=== PATIENT | female | born 1960 | race Caucasian/White ===

== ENCOUNTER 2016-09-14 13:08 | Emergency (ER) | payer MEDICARE, OTHER ==
[~2016-09-14] VITALS: Ht 162.6 cm; Wt 55.0 kg
[~2016-09-14 13:08] MED LIST: ALBUAER3 INH; IBUP-232 PO; LISI-515 PO; MONT10TA2 PO; PROP20TA3 PO; ZYRT10TA PO
--- NOTE | 2016-09-14 13:18 | PD ---
Physical Exam Time Seen by Provider: 13:16 Narrative 56yo F c/o right sided abdominal pain with radiation to back x 3days. Says she has bilateral kidney stones. Patient seen in triage. Awaiting bed placement. VS reviewed. MDM Supervised Visit with NELL: Meena Corona September 14, 2016 13:18
[2016-09-14 13:36] VITALS: BP 127/84; PULSE 75; RESP 18; O2SAT 97
[2016-09-14] MEDS ORDERED: ONDANSETRON HCL 4 MG/2 ML VIAL IV ONE (14:15)
--- NOTE | 2016-09-14 14:19 | PD ---
HPI Chief Complaint: Complaint Time Seen by Provider: 13:30 Travel History International Travel<30 days: No Contact w/Intl Traveler<30days: No Traveled to known affect area: No History of Present Illness HPI The patient was seen and examined in the presence of the nurse. This patient complains of right upper quadrant pain. She's had this pain on and off for 2 full years. He's had evaluation by GI physician and primary care physician. She has an outpatient ultrasound of the right upper quadrant scheduled for tomorrow. This current flare is lasted 3 days. Severity of symptoms is moderate. She has some nausea but no repetitive vomiting. No diarrhea or fever. No lower quadrant pains. She has had a cholecystectomy. No alleviating factors. She is not an alcohol drinker. She has history of hep C causing cirrhosis and usually has elevated liver function tests PFSH Past Medical History Asthma: Yes Blood Disorders: No Anxiety: Yes Depression: No Heart Rhythm Problems: No Cancer: Yes (CERVICAL) Cardiovascular Problems: Yes (HTN) High Cholesterol: No Chemotherapy: Yes (2002) Chest Pain: No Congestive Heart Failure: Yes COPD: Yes Cerebrovascular Accident: Yes Coronary Artery Disease: No Diabetes: No Diminished Hearing: No Endocrine: Yes Gastrointestinal Disorders: Yes (Ibs, colitis) GERD: Yes Genitourinary: No Hepatitis: Yes (HEPATITIS C) Hiatal Hernia: No Hypertension: Yes Immune Disorder: Yes (HEP C FROM BLOOD TRANSFUSION ) Implanted Vascular Access Dvce: No Kidney Stones: Yes Musculoskeletal: Yes (back) Neurologic: Yes (seizures, encephalopathy) Psychiatric: Yes Reproductive: No Respiratory: Yes (COPD CHF) Immunizations Current: Yes Migraines: Yes Radiation Therapy: No Renal Failure: No Seizures: Yes Sleep Apnea: No Thyroid Disease: Yes (HYPER (GRAVES)) Ulcer: No Menopausal: Yes : 8 Para: 5 Miscarriage: 3 Past Surgical History Abdominal Surgery: Yes (choly) Arteriovenous Shunt: No Body Medical Devices: steel plate in neck, hernia mesh Cardiac Surgery: No Section: Yes (2) Cholecystectomy: Yes Ear Surgery: No Endocrine Surgery: No Eye Surgery: No Genitourinary Surgery: No Gynecologic Surgery: Yes (COMPLETE HYSTERECTOMY) Hysterectomy: Yes Insulin Pump: No Joint Replacement: No Neurologic Surgery: No Oral Surgery: No Pacemaker: No Thoracic Surgery: No Other Surgery: Yes (PLATE PLACED IN NECK WITH CERVIAL FUSION) Social History Alcohol Use: No Tobacco Use: Yes (1-2 cigs a day) Substance Use: No Allergies-Medications (Allergen,Severity, Reaction): Coded Allergies: Cipro (Verified Allergy, Severe, HIVES, THROAT SWELLING AND DIARRHEA, 09/12) Contrast Media (Verified Allergy, Severe, 09/12/16) Iodine (Verified Allergy, Severe, HIVES, THROAT SWELLING, 09/12/16) Penicillin (Verified Allergy, Severe, HIVES, THROAT SWELLING, 09/12/16) Toradol (Verified Allergy, Severe, HIVES AND THROAT SWELLING, 09/12/16) Estrogens (Verified Allergy, Intermediate, hives, 09/12/16) Reported Meds & Prescriptions Reported Meds & Active Scripts Active Proair Hfa 8.5 GM Inh (Albuterol Sulfate) 90 Mcg/Act Aer 2 Puff INH Q4-6H PRN 108 mcg/actuation Lisinopril 20 Mg Tab 20 Mg PO DAILY Ibuprofen 600 Mg Tab 600 Mg PO Q8HR PRN Reported Zyrtec Allergy (Cetirizine HCl) 10 Mg Tab 10 Mg PO DAILY Singulair (Montelukast Sodium) 10 Mg Tab 10 Mg PO HS Propranolol (Propranolol HCl) 20 Mg Tab 20 Mg PO DAILY Review of Systems General / Constitutional: No: Fever Eyes: No: Visual changes HENT: No: Headaches Cardiovascular: No: Chest Pain or Discomfort Respiratory: No: Shortness of Breath Gastrointestinal: Positive: Nausea, Abdominal Pain Genitourinary: No: Dysuria Musculoskeletal: No: Pain Skin: No Rash Neurologic: No: Weakness Psychiatric: No: Depression Endocrine: No: Polydipsia Hematologic/Lymphatic: No: Easy Bruising Physical Exam Narrative GENERAL: Well-nourished, well-developed patient in no apparent distress. SKIN: Focused skin assessment reveals no rash and nodules. Skin is Warm and dry. HEAD: Atraumatic. Normocephalic. EYES: Pupils equal and round. No scleral icterus. No injection or drainage. ENT: No nasal bleeding or discharge. Mucous membranes pink and moist. NECK: Trachea midline. No JVD. CARDIOVASCULAR: Regular rate and rhythm. No murmur appreciated. RESPIRATORY: No accessory muscle use. Clear to auscultation. Breath sounds equal bilaterally. GASTROINTESTINAL: Abdomen soft, mild right upper quadrant tenderness without rebound or guarding, nondistended. Hepatic and splenic margins not palpable. MUSCULOSKELETAL: No obvious deformities. No clubbing. No cyanosis. No edema. NEUROLOGICAL: Awake and alert. No obvious cranial nerve deficits. Motor grossly within normal limits. Normal speech. PSYCHIATRIC: Appropriate mood and affect; insight and judgment normal. Data Data Last Documented VS Vital Signs Date Time Temp Pulse Resp B/P Pulse Ox O2 Delivery O2 Flow Rate FiO2 09/14/16 14:35 20 09/14/16 13:36 75 127/84 97 Room Air Orders Iv Access Insert/Monitor (09/14/16 14:01) Complete Blood Count With Diff (09/14/16 14:01) Comprehensive Metabolic Panel (09/14/16 14:01) Lipase (09/14/16 14:01) Ondansetron Inj (Zofran Inj) (09/14/16 14:15) Morphine Inj (Morphine Inj) (09/14/16 14:30) Labs Laboratory Tests Test 09/14/16 14:20 White Blood Count 4.2 TH/MM3 Red Blood Count 3.93 MIL/MM3 Hemoglobin 13.2 GM/DL Hematocrit 38.2 % Mean Corpuscular Volume 97.0 FL Mean Corpuscular Hemoglobin 33.6 PG Mean Corpuscular Hemoglobin 34.7 % Concent Red Cell Distribution Width 13.8 % Platelet Count 72 TH/MM3 Mean Platelet Volume 10.1 FL Neutrophils (%) (Auto) 53.8 % Lymphocytes (%) (Auto) 32.3 % Monocytes (%) (Auto) 9.2 % Eosinophils (%) (Auto) 3.7 % Basophils (%) (Auto) 1.0 % Neutrophils # (Auto) 2.3 TH/MM3 Lymphocytes # (Auto) 1.4 TH/MM3 Monocytes # (Auto) 0.4 TH/MM3 Eosinophils # (Auto) 0.2 TH/MM3 Basophils # (Auto) 0.0 TH/MM3 CBC Comment AUTO DIFF Differential Comment AUTO DIFF CONFIRMED Platelet Estimate LOW Platelet Morphology Comment NORMAL Sodium Level 147 MEQ/L Potassium Level 3.7 MEQ/L Chloride Level 113 MEQ/L Carbon Dioxide Level 26.7 MEQ/L Anion Gap 7 MEQ/L Blood Urea Nitrogen 9 MG/DL Creatinine 0.52 MG/DL Estimat Glomerular Filtration 121 ML/MIN Rate Random Glucose 81 MG/DL Calcium Level 8.4 MG/DL Total Bilirubin 1.9 MG/DL Aspartate Amino Transf 46 U/L (AST/SGOT) Alanine Aminotransferase 29 U/L (ALT/SGPT) Alkaline Phosphatase 104 U/L Total Protein 6.7 GM/DL Albumin 3.4 GM/DL Lipase 121 U/L MDM Medical Decision Making Medical Screen Exam Complete: Yes Emergency Medical Condition: Yes Medical Record Reviewed: Yes Differential Diagnosis Hepatitis, pancreatitis, peptic ulcer disease Narrative Course I have reviewed the patient's electronic medical record. Reviewed her prior lab studies from March 2016 IV placed I gave her IV Zofran CBC shows thrombocytopenia but improved from prior Metabolic profile normal LFTs shows elevated bili 1.9 but same as prior Lipase is normal Nothing emergent here on workup today. She looks clinically well. She has some laboratory abnormalities consistent with cirrhosis Diagnosis Primary Impression: Chronic right upper quadrant pain Additional Impression: Hepatic cirrhosis due to chronic hepatitis C infection Additional Instructions: The patient was advised to follow up with their physician and return if they worsen. Med/Other Pt SpecificInfo: Other Disposition: 01 DISCHARGE HOME Condition: Stable Tay Paulino MD September 14, 2016 14:19
[2016-09-14] MEDS ORDERED: MORPHINE SULFATE 4 MG/ML INJ IV PUSH ONE (14:30)
[2016-09-14 14:35] VITALS: RESP 20
[2016-09-14 14:39] LABS: AUTOMATED NEUTROPHIL # 2.3 TH/MM3 (1.8-7.7); EOSINOPHIL # 0.2 TH/MM3 (0-0.4); EOSINOPHIL % 3.7 % (0.0-4.0); HEMATOCRIT 38.2 % (35.0-46.0); LYMPH % 32.3 % (9.0-44.0); LYMPHOCYTE # 1.4 TH/MM3 (1.0-4.8); MEAN CORPUSCULAR HEMOGLOBIN 33.6 PG (27.0-34.0); MEAN CORPUSCULAR HGB CONC 34.7 % (32.0-36.0); MONO % 9.2 % (0.0-8.0); NEUT % 53.8 % (16.0-70.0); PLATELET COUNT 72 TH/MM3 (150-450); RED BLOOD COUNT 3.93 MIL/MM3 (4.00-5.30); RED CELL DISTRIBUTION WIDTH 13.8 % (11.6-17.2); WHITE BLOOD COUNT 4.2 TH/MM3 (4.0-11.0)
[2016-09-14 14:56] LABS: ALT (GPT) 29 U/L (10-53); ANION GAP 7 MEQ/L (5-15); AST (GOT) 46 U/L (15-37); BICARBONATE 26.7 MEQ/L (21.0-32.0); BLOOD UREA NITROGEN 9 MG/DL (7-18); CHLORIDE 113 MEQ/L (98-107); GLOMERULAR FILTRATION RATE 121 ML/MIN (>89); SODIUM (NA) 147 MEQ/L (136-145)
[2016-09-14 14:57] LABS: POTASSIUM 3.7 MEQ/L (3.5-5.1)
[2016-09-14 14:58] LABS: ALKALINE PHOSPHATASE 104 U/L (45-117); TOTAL BILIRUBIN ADULT 1.9 MG/DL (0.2-1.0)
[2016-09-14 14:59] LABS: HEMO FLAGS AUTO DIFF
[2016-09-14 15:28] LABS: PLATELET ESTIMATE SMEAR LOW (NORMAL); PLATELET MORPHOLOGY NORMAL (NORMAL); SCAN/DIFF AUTO DIFF CONFIRMED
[2016-09-29] MEDS ORDERED: LISI-515 PO (10:27)
[2016-10-04] MEDS ORDERED: XIFA550T4 PO (12:29)
[2016-10-04] MEDS ORDERED: CREO3000 PO (12:29)
[2016-10-04] MEDS ORDERED: CETI10 PO (12:29)
== END 2016-09-14 16:53 | disposition home or self-care (01) ==
LOC: NEPC 13:08
DX: R10.11 Right upper quadrant pain (principal); B18.2 Chronic viral hepatitis C; K74.60 Unspecified cirrhosis of liver; J45.909 Unspecified asthma, uncomplicated; I10 Essential (primary) hypertension; I50.9 Heart failure, unspecified; J44.9 Chronic obstructive pulmonary disease, unspecified; F17.210 Nicotine dependence, cigarettes, uncomplicated; Z86.73 Personal history of transient ischemic attack (TIA), and cerebral infarction without residual deficits; Z87.442 Personal history of urinary calculi
CPT/HCPCS: 80053; 83690; 85025; 96374; 96375; 99284; J2270; J2405

== ENCOUNTER → 2016-10-03 | Outpatient (CLI) | payer MEDICARE, OTHER ==
[~2016-10-03] MED LIST changes: +CETI10 PO; +CREO3000 PO; +XIFA550T4 PO
[2016-10-03 09:41] LABS: AUTOMATED NEUTROPHIL # 2.3 TH/MM3 (1.8-7.7); BASOPHIL % 0.7 % (0.0-2.0); EOSINOPHIL # 0.1 TH/MM3 (0-0.4); EOSINOPHIL % 3.4 % (0.0-4.0); HEMATOCRIT 38.3 % (35.0-46.0); LYMPH % 29.5 % (9.0-44.0); LYMPHOCYTE # 1.1 TH/MM3 (1.0-4.8); MEAN CELL VOLUME 95.5 FL (80.0-100.0); MEAN CORPUSCULAR HGB CONC 35.6 % (32.0-36.0); MONO % 4.9 % (0.0-8.0); NEUT % 61.5 % (16.0-70.0); PLATELET COUNT 64 TH/MM3 (150-450); RED BLOOD COUNT 4.01 MIL/MM3 (4.00-5.30); RED CELL DISTRIBUTION WIDTH 13.6 % (11.6-17.2); WHITE BLOOD COUNT 3.7 TH/MM3 (4.0-11.0)
[2016-10-03 09:48] LABS: INTERNATIONAL NORMALIZED RATIO 1.1 RATIO; PROTHROMBIN TIME - PATIENT 12.5 SEC (9.8-11.6)
[2016-10-03 09:50] LABS: HEMO FLAGS AUTO DIFF
[2016-10-03 10:33] LABS: PLATELET ESTIMATE SMEAR LOW (NORMAL); PLATELET MORPHOLOGY NORMAL (NORMAL); SCAN/DIFF AUTO DIFF CONFIRMED
== END ==
LOC: CLAB 08:57
PROVIDERS: ATTEND Physician Assistant Medical
DX: K74.60 Unspecified cirrhosis of liver (principal)
CPT/HCPCS: 36415; 85025; 85610

== ENCOUNTER → 2016-10-04 | Outpatient (CLI) | payer MEDICARE, OTHER ==
[~2016-10-04] VITALS: Ht 162.6 cm; Wt 59.3 kg
[~2016-10-04] MED LIST changes: +CHLORHEXIDINE GLUCONATE 2 % 1 PACK (2 CLOTHS) TOPICAL PRN; +INSULIN HUMAN REGULAR 1,000 UNITS/10 ML VIAL SQ PRN; +LACTATED RINGER'S 1000 ML IV PRN; +METOPROLOL TARTRATE 25 MG TAB PO PRN; +PROPOFOL 200 MG/20 ML AMP IV ONE; +SODIUM CHLORID 0.9% 500 ML IV PRN
[2016-10-04 12:18] VITALS: BP 113/76; PULSE 68; RESP 20; TEMP 98.8; O2SAT 97
[2016-10-04 14:21] VITALS: BP 122/74; PULSE 71; RESP 18; O2SAT 98
== END ==
LOC: HEND 11:43
DX: R13.10 Dysphagia, unspecified (principal); K74.60 Unspecified cirrhosis of liver; K76.6 Portal hypertension; K31.89 Other diseases of stomach and duodenum; K59.8 Other specified functional intestinal disorders; J39.2 Other diseases of pharynx; K22.2 Esophageal obstruction
CPT/HCPCS: 00740; 43248; C1769

== ENCOUNTER 2016-11-04 12:49 | Emergency (ER) | payer MEDICARE, OTHER ==
[~2016-11-04] VITALS: Ht 162.6 cm; Wt 65.0 kg
[~2016-11-04 12:49] MED LIST changes: -CHLORHEXIDINE GLUCONATE 2 % 1 PACK (2 CLOTHS) TOPICAL PRN; -INSULIN HUMAN REGULAR 1,000 UNITS/10 ML VIAL SQ PRN; -LACTATED RINGER'S 1000 ML IV PRN; -METOPROLOL TARTRATE 25 MG TAB PO PRN; -PROPOFOL 200 MG/20 ML AMP IV ONE; -SODIUM CHLORID 0.9% 500 ML IV PRN; -ZYRT10TA PO
[2016-11-04 12:51] VITALS: BP 179/89; PULSE 86; RESP 28; TEMP 97.9; O2SAT 98
[2016-11-04 13:01] VITALS: BP 155/88; PULSE 62; RESP 24; O2SAT 95
[2016-11-04] MEDS ORDERED: SODIUM CHLORIDE 0.9% FLUSH 10 ML FLUSH IVF PRN (13:30)
[2016-11-04] MEDS ORDERED: methylPREDNISolone SOD SUCC 125 MG/2 ML VIAL IVP ONE (13:30)
--- NOTE | 2016-11-04 13:32 | PD ---
HPI Chief Complaint: Respiratory Symptoms Time Seen by Provider: 13:32 Travel History International Travel<30 days: No Contact w/Intl Traveler<30days: No Traveled to known affect area: No History of Present Illness HPI 56-year-old female with history of COPD, CHF, hypertension, migraine, seizures, presents to emergency department for evaluation of worsening shortness of breath of the last week. Patient denies any cough or chest congestion. No chest pain. Patient states she has been unable to get into her primary care provider's office. She is also here for evaluation of bilateral mandibular second molar pain, stating that the teeth have broken and are painful. Denies any fever or chills. Has an appointment scheduled with [facility] in 2 days. PFSH Past Medical History Asthma: Yes Blood Disorders: No Anxiety: Yes Depression: No Heart Rhythm Problems: No Cancer: Yes (2002) Cardiovascular Problems: Yes High Cholesterol: No Chemotherapy: Yes (2002) Chest Pain: No Congestive Heart Failure: Yes COPD: Yes Cerebrovascular Accident: Yes Coronary Artery Disease: No Diabetes: No Diminished Hearing: No Endocrine: Yes Gastrointestinal Disorders: Yes (Ibs, colitis) GERD: Yes Genitourinary: No Hepatitis: Yes (HEPATITIS C) Hiatal Hernia: No Hypertension: Yes Immune Disorder: Yes (HEP C FROM BLOOD TRANSFUSION 1974 ) Implanted Vascular Access Dvce: No Kidney Stones: Yes Musculoskeletal: Yes (back) Neurologic: Yes (seizures, encephalopathy) Psychiatric: Yes Reproductive: No Respiratory: Yes Immunizations Current: Yes Migraines: Yes Radiation Therapy: No Renal Failure: No Seizures: Yes Sleep Apnea: No Thyroid Disease: Yes (HYPER (GRAVES)) Ulcer: No Tetanus Vaccination: < 5 Years ?: Not Menopausal: Yes : 8 Para: 5 Miscarriage: 3 Past Surgical History Abdominal Surgery: Yes Arteriovenous Shunt: No Body Medical Devices: steel plate in neck, hernia mesh Cardiac Surgery: No Section: Yes (2) Cholecystectomy: Yes Ear Surgery: No Endocrine Surgery: No Eye Surgery: No Genitourinary Surgery: No Gynecologic Surgery: Yes Hysterectomy: Yes Insulin Pump: No Joint Replacement: No Neurologic Surgery: No Oral Surgery: No Pacemaker: No Thoracic Surgery: No Other Surgery: Yes (PLATE PLACED IN NECK WITH CERVIAL FUSION) Social History Alcohol Use: No Tobacco Use: Yes (1-2 cigs a day) Substance Use: No Allergies-Medications (Allergen,Severity, Reaction): Coded Allergies: Cipro (Verified Allergy, Severe, HIVES, THROAT SWELLING AND DIARRHEA, ) Contrast Media (Verified Allergy, Severe, 11/04/16) Iodine (Verified Allergy, Severe, HIVES, THROAT SWELLING, 11/04/16) Penicillin (Verified Allergy, Severe, HIVES, THROAT SWELLING, 11/04/16) Toradol (Verified Allergy, Severe, HIVES AND THROAT SWELLING, 11/04/16) Estrogens (Verified Allergy, Intermediate, hives, 11/04/16) Reported Meds & Prescriptions Reported Meds & Active Scripts Active Prednisone 50 Mg Tab 50 Mg PO DAILY 5 Days Duoneb (Ipratropium-Albuterol Neb) 0.5-2.5 Mg/3 Ml Neb 1 Nebule INH Q6HR NEB Lisinopril 20 Mg Tab 20 Mg PO DAILY Proair Hfa 8.5 GM Inh (Albuterol Sulfate) 90 Mcg/Act Aer 2 Puff INH Q4-6H PRN 108 mcg/actuation Reported Creon (Pancrelipase) 3,000-9,500-15,000 Units Cap 1 Cap PO TIDPC Xifaxan (Rifaximin) 550 Mg Tab 550 Mg PO Q8HR Cetirizine (Cetirizine HCl) 10 Mg Tab 10 Mg PO DAILY Singulair (Montelukast Sodium) 10 Mg Tab 10 Mg PO HS Propranolol (Propranolol HCl) 20 Mg Tab 20 Mg PO DAILY Review of Systems Except as stated in HPI: all other systems reviewed are Neg Physical Exam Narrative GENERAL: Well-nourished female patient, in no acute distress SKIN: Focused skin assessment warm/dry. HEAD: Atraumatic. Normocephalic. EYES: Pupils equal and round. No scleral icterus. No injection or drainage. ENT: No nasal bleeding or discharge. Mucous membranes pink and moist. DENTAL: Patient has multiple rollover fillings within the teeth, missing molars. Teeth are cracked and broken. No malocclusion. NECK: Trachea midline. No JVD. CARDIOVASCULAR: Regular rate and rhythm. No murmur appreciated. RESPIRATORY: No accessory muscle use. Diminished auscultation. Breath sounds equal bilaterally. GASTROINTESTINAL: Abdomen soft, non-tender, nondistended. Hepatic and splenic margins not palpable. MUSCULOSKELETAL: No obvious deformities. No clubbing. No cyanosis. No edema. NEUROLOGICAL: Awake and alert. No obvious cranial nerve deficits. Motor grossly within normal limits. Normal speech. PSYCHIATRIC: Appropriate mood and affect; insight and judgment normal. Data Data Last Documented VS Vital Signs Date Time Temp Pulse Resp B/P Pulse Ox O2 Delivery O2 Flow Rate FiO2 11/04/16 16:00 95 Room Air 11/04/16 14:13 2 11/04/16 13:01 62 24 155/88 11/04/16 12:51 97.9 Orders Chest, Pa & Lat (11/04/16 ) Complete Blood Count With Diff (11/04/16 13:27) Basic Metabolic Panel (Bmp) (11/04/16 13:27) B-Type Natriuretic Peptide (11/04/16 13:27) Act Partial Throm Time (Ptt) (11/04/16 13:27) Prothrombin Time / Inr (Pt) (11/04/16 13:27) Ckmb (Isoenzyme) Profile (11/04/16 13:27) Troponin I (11/04/16 13:27) Urinalysis - C+S If Indicated (11/04/16 13:27) Iv Access Insert/Monitor (11/04/16 13:27) Electrocardiogram (11/04/16 13:27) Ecg Monitoring (11/04/16 13:27) Oximetry (11/04/16 13:27) Oxygen Administration (11/04/16 13:27) Sodium Chloride 0.9% Flush (Ns Flush) (11/04/16 13:30) Methylprednisolone So Succ Inj (Solumedr (11/04/16 13:30) Albuterol Neb (Albuterol Neb) (11/04/16 13:30) CKMB (11/04/16 12:40) CKMB% (11/04/16 12:40) Ibuprofen (Motrin) (11/04/16 15:30) Labs Laboratory Tests Test 11/04/16 11/04/16 12:40 15:10 White Blood Count 4.7 TH/MM3 Red Blood Count 3.84 MIL/MM3 Hemoglobin 12.6 GM/DL Hematocrit 36.6 % Mean Corpuscular Volume 95.4 FL Mean Corpuscular Hemoglobin 32.9 PG Mean Corpuscular Hemoglobin 34.5 % Concent Red Cell Distribution Width 13.6 % Platelet Count 74 TH/MM3 Mean Platelet Volume 9.9 FL Neutrophils (%) (Auto) 55.1 % Lymphocytes (%) (Auto) 33.3 % Monocytes (%) (Auto) 7.8 % Eosinophils (%) (Auto) 3.3 % Basophils (%) (Auto) 0.5 % Neutrophils # (Auto) 2.6 TH/MM3 Lymphocytes # (Auto) 1.5 TH/MM3 Monocytes # (Auto) 0.4 TH/MM3 Eosinophils # (Auto) 0.2 TH/MM3 Basophils # (Auto) 0.0 TH/MM3 CBC Comment AUTO DIFF Differential Comment AUTO DIFF CONFIRMED Prothrombin Time 11.6 SEC Prothromb Time International 1.0 RATIO Ratio Activated Partial 24.5 SEC Thromboplast Time Sodium Level 146 MEQ/L Potassium Level 3.7 MEQ/L Chloride Level 114 MEQ/L Carbon Dioxide Level 26.8 MEQ/L Anion Gap 5 MEQ/L Blood Urea Nitrogen 12 MG/DL Creatinine 0.57 MG/DL Estimat Glomerular Filtration 109 ML/MIN Rate Random Glucose 98 MG/DL Calcium Level 8.5 MG/DL Total Creatine Kinase 138 U/L Creatine Kinase MB 1.3 NG/ML Troponin I LESS THAN 0.02 NG/ML B-Type Natriuretic Peptide 25 PG/ML Urine Color YELLOW Urine Turbidity HAZY Urine pH 6.5 Urine Specific [place] 1.026 Urine Protein TRACE mg/dL Urine Glucose (UA) NEG mg/dL Urine Ketones NEG mg/dL Urine Occult Blood NEG Urine Nitrite NEG Urine Bilirubin NEG Urine Urobilinogen 4.0 MG/DL Urine Leukocyte Esterase NEG Urine RBC 8 /hpf Urine WBC 3 /hpf Urine Squamous Epithelial 1 /hpf Cells Urine Amorphous Sediment FEW Urine Mucus FEW /lpf Microscopic Urinalysis Comment CULT NOT INDICATED MDM Medical Decision Making Medical Screen Exam Complete: Yes Emergency Medical Condition: Yes Medical Record Reviewed: Yes Differential Diagnosis COPD exacerbation versus CHF versus pneumonia versus anxiety versus neoplasm Narrative Course 56-year-old female presents to emergency department for evaluation. Patient appears without distress. She does have diminished breath sounds and is originally tachypneic on exam. IV Solu-Medrol and DuoNeb treatments are ordered. Upon reassessment, patient is resting in the bed with her eyes closed. Her oxygen saturation has improved and she is no longer tacypneic. Chest x-rays with no acute disease. CBC and BMP are without acute concern. BNP is 25. Patiently discharged home on short course of oral steroids as well as DuoNeb treatments. She is encouraged to follow-up with her primary care provider. She agrees to return immediately with any acute worsening of symptoms. Diagnosis Primary Impression: COPD (chronic obstructive pulmonary disease) Qualified Code: J44.1 - Chronic obstructive pulmonary disease with acute exacerbation Additional Impression: Pain due to dental caries Referrals: Primary Care Physician Patient Instructions: COPD (Chronic Obstructive Pulmonary Disease) (ED), General Instructions Additional Instructions: Follow up with your primary care provider Steroids will increase your blood sugar Tylenol or ibuprofen as directed on the package as needed for pain Keep your appointment with [facility] Return immediately with acute worsening of symptoms Med/Other Pt SpecificInfo: Prescription(s) given Scripts Prednisone 50 Mg Tab50 Mg PO DAILY 5 Days Ref 0 Prov:Sarah Joya 11/04/16 Ipratropium-Albuterol Neb (Duoneb)0.5-2.5 Mg/3 Ml Neb1 Nebule INH Q6HR NEB #60 NEBULE Ref 0 Prov:Sarah Joya 11/04/16 Disposition: 01 DISCHARGE HOME Condition: Stable Sarah Joya Nov 04, 2016 13:32
[2016-11-04] MEDS: RESP: ALBUTEROL 2.5 MG/3 ML NEB (SCH) INH ×2 (13:38→13:39)
--- NOTE | 2016-11-04 13:51 | RADRPT ---
EXAM DATE/TIME: 11/04/2016 13:32 [facility] COMPARISON: CHEST PA & LAT, October 26, 2015, 17:58. INDICATIONS : Chest pain and shortness of breath. MEDICAL HISTORY : Congestive heart failure. Chronic obstructive pulmonary disease. SURGICAL HISTORY : None. ENCOUNTER: Initial ACUITY: 1 day PAIN SCORE: 9/10 LOCATION: Bilateral chest FINDINGS: PA and lateral views of the chest demonstrate the lungs to be hyperaerated without evidence of mass, infiltrate or effusion. The cardiomediastinal contours are unremarkable. Osseous structures are int act. CONCLUSION: No acute disease. Serafin Chilel MD on November 04, 2016 at 13:49 Board Certified Radiologist. This report was verified electronically.
[2016-11-04 14:13] VITALS: O2SAT 96
[2016-11-04 14:33] LABS: AUTOMATED NEUTROPHIL # 2.6 TH/MM3 (1.8-7.7); BASOPHIL % 0.5 % (0.0-2.0); EOSINOPHIL # 0.2 TH/MM3 (0-0.4); EOSINOPHIL % 3.3 % (0.0-4.0); HEMATOCRIT 36.6 % (35.0-46.0); LYMPH % 33.3 % (9.0-44.0); LYMPHOCYTE # 1.5 TH/MM3 (1.0-4.8); MEAN CELL VOLUME 95.4 FL (80.0-100.0); MEAN CORPUSCULAR HEMOGLOBIN 32.9 PG (27.0-34.0); MEAN CORPUSCULAR HGB CONC 34.5 % (32.0-36.0); MONO % 7.8 % (0.0-8.0); NEUT % 55.1 % (16.0-70.0); PLATELET COUNT 74 TH/MM3 (150-450); RED BLOOD COUNT 3.84 MIL/MM3 (4.00-5.30); RED CELL DISTRIBUTION WIDTH 13.6 % (11.6-17.2); WHITE BLOOD COUNT 4.7 TH/MM3 (4.0-11.0)
[2016-11-04 14:38] LABS: HEMO FLAGS AUTO DIFF
[2016-11-04 14:44] LABS: APTT (PATIENT) 24.5 SEC (24.3-30.1); PROTHROMBIN TIME - PATIENT 11.6 SEC (9.8-11.6)
[2016-11-04 14:55] LABS: CREATINE KINASE 138 U/L (26-192)
[2016-11-04 14:58] LABS: ANION GAP 5 MEQ/L (5-15); BICARBONATE 26.8 MEQ/L (21.0-32.0); BLOOD UREA NITROGEN 12 MG/DL (7-18); CHLORIDE 114 MEQ/L (98-107); GLOMERULAR FILTRATION RATE 109 ML/MIN (>89); POTASSIUM 3.7 MEQ/L (3.5-5.1); SODIUM (NA) 146 MEQ/L (136-145)
[2016-11-04 15:08] LABS: CKMB 1.3 NG/ML (0.5-3.6)
[2016-11-04] MEDS ORDERED: IBUPROFEN 600 MG TAB PO ONE (15:30)
[2016-11-04 15:47] LABS: BLOOD, URINE NEG (NEG); GLUCOSE,URINE NEG (NEG); KETONE, URINE NEG (NEG); MUCUS URINE FEW /lpf (OCC); NITRITE,URINE NEG (NEG); PH, URINE 6.5 (5.0-8.5); SQUAMOUS EPITHELIAL CELL URINE 1 /hpf (0-5); URINE COLOR YELLOW (YELLW/STRAW)
[2016-11-04 15:48] LABS: COMMENT (UR) CULT NOT INDICATED; CULTURE IF INDICATED CULT NOT INDICATED
[2016-11-04] MEDS ORDERED: PRED50 PO (15:54)
[2016-11-04] MEDS ORDERED: IPRASOL INH (15:54)
[2016-11-04 16:00] VITALS: O2SAT 95
[2016-11-04 16:20] LABS: SCAN/DIFF AUTO DIFF CONFIRMED
--- NOTE | 2016-11-04 17:22 | EKG ---
Date Performed: 11/04/2016 Time Performed: 14:41:27 PTAGE: 56 years EKG: SINUS BRADYCARDIA BORDERLINE ECG PREVIOUS TRACING : 04/12/2016 20.06 Compared to prior tracing no significant change DOCTOR: Stuart Church Interpretating Date/Time 11/04/2016 17:20:23
[2016-11-14] MEDS ORDERED: CREO3000 PO (09:05)
== END 2016-11-04 16:16 | disposition home or self-care (01) ==
LOC: NEPE 12:49
DX: J44.1 Chronic obstructive pulmonary disease with (acute) exacerbation (principal); K02.9 Dental caries, unspecified; B19.20 Unspecified viral hepatitis C without hepatic coma; Z87.442 Personal history of urinary calculi; K58.9 Irritable bowel syndrome, unspecified; Z86.73 Personal history of transient ischemic attack (TIA), and cerebral infarction without residual deficits; I50.9 Heart failure, unspecified; E05.00 Thyrotoxicosis with diffuse goiter without thyrotoxic crisis or storm
CPT/HCPCS: 71020; 80048; 81001; 82550; 82552; 83880; 84484; 85025; 85610; 85730; 93005; 94640; 94664; 96374; 99285; J2930; J7613

== ENCOUNTER 2016-11-05 09:32 | Emergency (ER) | payer MEDICARE, OTHER ==
[~2016-11-05] VITALS: Ht 162.6 cm; Wt 60.0 kg
[~2016-11-05 09:32] MED LIST changes: -IBUP-232 PO; +IPRASOL INH; +PRED50 PO
[2016-11-05 09:53] VITALS: BP 146/72; PULSE 88; RESP 18; TEMP 98.6; O2SAT 97
[2016-11-05] MEDS ORDERED: SODIUM CHLOR 0.9% 1000 ML INJ 1,000 ML IV SCH (09:56)
[2016-11-05] MEDS ORDERED: ONDANSETRON HCL 4 MG/2 ML VIAL IVP ONE (10:00)
[2016-11-05] MEDS ORDERED: SODIUM CHLORIDE 0.9% FLUSH 10 ML FLUSH IV FLUSH PRN (10:00)
--- NOTE | 2016-11-05 10:04 | PD ---
HPI Chief Complaint: GI Complaint Time Seen by Provider: 09:50 Travel History International Travel<30 days: No Contact w/Intl Traveler<30days: No Traveled to known affect area: No History of Present Illness HPI Patient is a 56-year-old female who presents to emergency room with complaints of abdominal pain. Reports that since yesterday, she has been feeling very nauseous and has been vomiting, reports increased pain to her upper abdomen. Patient reports that she does follow up with Dr. Oakley with GI and did have an EGD in recently which showed gastric ulcers. Reports no fever/chills. Denies chest pain/sob. NO other c/o at this time. Patient reports that she was seen yesterday in the emergency room for evaluation of COPD exacerbation. Patient also complains of increased facial pain, reports that she has multiple facial fractures and has not been able to see her doctor for pain medications. Patient requesting prescription for pain medications for her facial fractures. PFSH Past Medical History Asthma: Yes Blood Disorders: No Anxiety: Yes Depression: No Heart Rhythm Problems: No Cancer: Yes (2002) Cardiovascular Problems: Yes High Cholesterol: No Chemotherapy: Yes (2002) Chest Pain: No Congestive Heart Failure: Yes COPD: Yes Cerebrovascular Accident: Yes Coronary Artery Disease: No Diabetes: No Diminished Hearing: No Endocrine: Yes Gastrointestinal Disorders: Yes (Ibs, colitis) GERD: Yes Genitourinary: No Hepatitis: Yes (HEPATITIS C) Hiatal Hernia: No Hypertension: Yes Immune Disorder: Yes (HEP C FROM BLOOD TRANSFUSION 1974 ) Implanted Vascular Access Dvce: No Kidney Stones: Yes Musculoskeletal: Yes (back) Neurologic: Yes (seizures, encephalopathy) Psychiatric: Yes Reproductive: No Respiratory: Yes Immunizations Current: Yes Migraines: Yes Radiation Therapy: No Renal Failure: No Seizures: Yes Sleep Apnea: No Thyroid Disease: Yes (HYPER (GRAVES)) Ulcer: No ?: Not Menopausal: Yes : 8 Para: 5 Miscarriage: 3 Past Surgical History Abdominal Surgery: Yes Arteriovenous Shunt: No Body Medical Devices: steel plate in neck, hernia mesh Cardiac Surgery: No Section: Yes (2) Cholecystectomy: Yes Ear Surgery: No Endocrine Surgery: No Eye Surgery: No Genitourinary Surgery: No Gynecologic Surgery: Yes Hysterectomy: Yes Insulin Pump: No Joint Replacement: No Neurologic Surgery: No Oral Surgery: No Pacemaker: No Thoracic Surgery: No Other Surgery: Yes (PLATE PLACED IN NECK WITH CERVIAL FUSION) Social History Alcohol Use: No Tobacco Use: Yes (1-2 cigs a day) Substance Use: No Allergies-Medications (Allergen,Severity, Reaction): Coded Allergies: Cipro (Verified Allergy, Severe, HIVES, THROAT SWELLING AND DIARRHEA, ) Contrast Media (Verified Allergy, Severe, 11/04/16) Iodine (Verified Allergy, Severe, HIVES, THROAT SWELLING, 11/04/16) Penicillin (Verified Allergy, Severe, HIVES, THROAT SWELLING, 11/04/16) Toradol (Verified Allergy, Severe, HIVES AND THROAT SWELLING, 11/04/16) Estrogens (Verified Allergy, Intermediate, hives, 11/04/16) Reported Meds & Prescriptions Reported Meds & Active Scripts Active Prednisone 50 Mg Tab 50 Mg PO DAILY 5 Days Duoneb (Ipratropium-Albuterol Neb) 0.5-2.5 Mg/3 Ml Neb 1 Nebule INH Q6HR NEB Lisinopril 20 Mg Tab 20 Mg PO DAILY Proair Hfa 8.5 GM Inh (Albuterol Sulfate) 90 Mcg/Act Aer 2 Puff INH Q4-6H PRN 108 mcg/actuation Reported Creon (Pancrelipase) 3,000-9,500-15,000 Units Cap 1 Cap PO TIDPC Xifaxan (Rifaximin) 550 Mg Tab 550 Mg PO Q8HR Cetirizine (Cetirizine HCl) 10 Mg Tab 10 Mg PO DAILY Singulair (Montelukast Sodium) 10 Mg Tab 10 Mg PO HS Propranolol (Propranolol HCl) 20 Mg Tab 20 Mg PO DAILY Review of Systems General / Constitutional: No: Fever Eyes: No: Visual changes HENT: Positive: Other (facial pain from past fractures), No: Headaches Cardiovascular: No: Chest Pain or Discomfort Respiratory: Positive: Cough, Shortness of Breath, Wheezing Gastrointestinal: Positive: Nausea, Vomiting, Abdominal Pain Genitourinary: No: Dysuria Musculoskeletal: No: Pain Skin: No Rash Neurologic: No: Weakness Psychiatric: No: Depression Endocrine: No: Polydipsia Hematologic/Lymphatic: No: Easy Bruising Physical Exam Narrative GENERAL: Mild distress SKIN: Focused skin assessment warm/dry. HEAD: Atraumatic. Normocephalic. EYES: Pupils equal and round. No scleral icterus. No injection or drainage. ENT: No nasal bleeding or discharge. Mucous membranes pink and moist. NECK: Trachea midline. No JVD. CARDIOVASCULAR: Regular rate and rhythm. No murmur appreciated. RESPIRATORY: No accessory muscle use. Scattered wheezing to upper and lower lungs. Breath sounds equal bilaterally. GASTROINTESTINAL: Abdomen soft, mild tenderness to her upper abdomen with no rebound or guarding on exam, nondistended. Hepatic and splenic margins not palpable. MUSCULOSKELETAL: No obvious deformities. No clubbing. No cyanosis. No edema. NEUROLOGICAL: Awake and alert. No obvious cranial nerve deficits. Motor grossly within normal limits. Normal speech. Data Data Last Documented VS Vital Signs Date Time Temp Pulse Resp B/P Pulse Ox O2 Delivery O2 Flow Rate FiO2 11/05/16 09:53 98.6 88 18 146/72 97 Orders Complete Blood Count With Diff (11/05/16 09:56) Comprehensive Metabolic Panel (11/05/16 09:56) Lipase (11/05/16 09:56) Urinalysis - C+S If Indicated (11/05/16 09:56) Ct Abd/Pel W/O Iv Contrast (11/05/16 09:56) Iv Access Insert/Monitor (11/05/16 09:56) Ecg Monitoring (11/05/16 09:56) Ondansetron Inj (Zofran Inj) (11/05/16 10:00) Sodium Chlor 0.9% 1000 Ml Inj (Ns 1000 M (11/05/16 09:56) Sodium Chloride 0.9% Flush (Ns Flush) (11/05/16 10:00) MDM Medical Decision Making Medical Screen Exam Complete: Yes Emergency Medical Condition: Yes Interpretation(s) Vital Signs Date Time Temp Pulse Resp B/P Pulse Ox O2 Delivery O2 Flow Rate FiO2 11/05/16 09:53 98.6 88 18 146/72 97 Differential Diagnosis Differential includes chronic pain, COPD exacerbation, gastric ulcer, gastritis , gastroenteritis, gastric ulcer, pancreatitis, pneumonia Narrative Course Patient is a 56-year-old female who presents to emergency room with multiple complaints. Patient's main complaint is her abdominal pain which started yesterday, reports nausea vomiting with her symptoms. Reports that she is unable to eat or drink anything since yesterday, reports pain to her upper abdomen. Patient is comfortable exam, plan to obtain lab work including CBC, CMP, LFTs. CT of the abdomen pelvis ordered for further evaluation of etiology of abdominal pain. I was called to room as patient now refusing further medical treatment and does not want lab work or studies performed. Patient requesting to leave the hospital against medical advice. AMA: The risks of leaving against medical advice without further evaluation treatment were discussed with the patient. These risks include cardiac dysfunction, cardiac dysrhythmia, possible heart attack, possible stroke or . The patient indicated understanding of these risks and appeared to have the capacity to make this decision. Patient understands that she may return to the ER at anytime should she be agreeable to medical evaluation. Understands importance of following up with her primary care doctor as soon as possible. Diagnosis Primary Impression: abdominal pain Additional Impressions: Left against medical advice COPD with exacerbation Patient Instructions: General Instructions Additional Instructions: You have decided to leave AGAINST MEDICAL ADVICE today, please note that you can return to the emergency room at any time for further evaluation and treatment of your symptoms Please follow-up with your primary care doctor as soon as possible Return to ER at any time Disposition: 07 AGAINST MEDICAL ADVICE Condition: Serious Suly Bravo DO Nov 05, 2016 10:04
[2016-11-14] MEDS ORDERED: CREO3000 PO (09:05)
== END 2016-11-05 10:20 | disposition left against medical advice (07) ==
LOC: NEPC 09:32
DX: R10.10 Upper abdominal pain, unspecified (principal); J44.1 Chronic obstructive pulmonary disease with (acute) exacerbation; R11.2 Nausea with vomiting, unspecified; F41.9 Anxiety disorder, unspecified; I50.9 Heart failure, unspecified; K58.9 Irritable bowel syndrome, unspecified; K21.9 Gastro-esophageal reflux disease without esophagitis; B19.20 Unspecified viral hepatitis C without hepatic coma; Z86.73 Personal history of transient ischemic attack (TIA), and cerebral infarction without residual deficits
CPT/HCPCS: 99283

== ENCOUNTER 2017-02-18 13:17 | Emergency (ER) | payer MEDICARE, OTHER ==
[~2017-02-18] VITALS: Ht 162.6 cm; Wt 63.5 kg
[~2017-02-18 13:17] MED LIST changes: -ALBUAER3 INH; +CETI-1 PO; -CETI10 PO; +CLIN1CAP5 PO; -CREO3000 PO; -IPRASOL INH; +OMEP40CA2 PO; -PRED50 PO; +creon
[2017-02-18 13:20] VITALS: BP 185/89; PULSE 70; RESP 20; TEMP 98.7; O2SAT 96
[2017-02-18] MEDS ORDERED: DEXAMETHASONE SOD PHOS 20 MG/5 ML VIAL IV PUSH ONE ×2 (14:00)
[2017-02-18] MEDS ORDERED: SODIUM CHLOR 0.9% 1000 ML INJ 1,000 ML IV SCH ×2 (14:02)
--- NOTE | 2017-02-18 15:00 | RADRPT ---
EXAM DATE/TIME: 02/18/2017 14:36 [facility] COMPARISON: No previous studies available for comparison. INDICATIONS : Swollen tongue. RADIATION DOSE: 14.50 CTDIvol (mGy) MEDICAL HISTORY : Cerebrovascular disease. Seizures. Cardiovascular diseaseHTN,CHF,GERD,Cervical ca.HepC SURGICAL HISTORY : Cholecystectomy. Mastectomy ENCOUNTER: Initial ACUITY: 1 month PAIN SCORE: 8/10 LOCATION: neck TECHNIQUE: Volumetric scanning of the neck was performed. Using automated exposure control and adjustment of th e mA and/or kV according to patient size, radiation dose was kept as low as reasonably achievable to obtain optimal diagnostic quality images. DICOM format image data is available electronically for re view and comparison. FINDINGS: NASOPHARYNX: The nasopharyngeal airway has a normal configuration. No mucosal thickening or mass is seen. OROPHARYNX: The intrinsic muscles of the tongue are symmetric. The tonsillar pillars are intact. The prevertebr al soft tissues are not thickened. LARYNX: The supraglottic, glottic, and infraglottic structures are intact. PARAPHARYNGEAL: The parapharyngeal space is intact. SALIVARY GLANDS: The parotid and submandibular glands are intact. LYMPH NODES: No enlarged or necrotic-appearing nodes. THYROID: Homogeneous enhancement without evidence of nodule. BONES: Unremarkable. CONCLUSION: Normal examination. Pascual Chi Jr., MD on February 18, 2017 at 14:57 Board Certified Radiologist. This report was verified electronically.
[2017-02-18 15:01] LABS: AUTOMATED NEUTROPHIL # 3.4 TH/MM3 (1.8-7.7); BASOPHIL % 0.5 % (0.0-2.0); EOSINOPHIL # 0.2 TH/MM3 (0-0.4); HEMOGLOBIN 13.3 GM/DL (11.6-15.3); LYMPH % 29.8 % (9.0-44.0); LYMPHOCYTE # 1.7 TH/MM3 (1.0-4.8); MEAN CELL VOLUME 95.8 FL (80.0-100.0); MEAN CORPUSCULAR HEMOGLOBIN 32.6 PG (27.0-34.0); MONOCYTE # 0.4 TH/MM3 (0-0.9); NEUT % 59.7 % (16.0-70.0); PLATELET COUNT 75 TH/MM3 (150-450); RED BLOOD COUNT 4.07 MIL/MM3 (4.00-5.30); WHITE BLOOD COUNT 5.7 TH/MM3 (4.0-11.0)
[2017-02-18 15:16] LABS: ALBUMIN 3.6 GM/DL (3.4-5.0); ALT (GPT) 34 U/L (10-53); AST (GOT) 37 U/L (15-37); BICARBONATE 25.6 MEQ/L (21.0-32.0); BLOOD UREA NITROGEN 9 MG/DL (7-18); CALCIUM 8.6 MG/DL (8.5-10.1); CHLORIDE 111 MEQ/L (98-107); CREATININE 0.61 MG/DL (0.50-1.00); GLOMERULAR FILTRATION RATE 101 ML/MIN (>89); GLUCOSE,RANDOM 100 MG/DL (74-106); LIPASE 165 U/L (73-393); MAGNESIUM 2.1 MG/DL (1.5-2.5); SODIUM (NA) 141 MEQ/L (136-145)
[2017-02-18 15:18] LABS: ALKALINE PHOSPHATASE 108 U/L (45-117); TOTAL BILIRUBIN ADULT 1.4 MG/DL (0.2-1.0)
--- NOTE | 2017-02-18 15:18 | PD ---
HPI Chief Complaint: ENT Complaint Time Seen by Provider: 15:12 Travel History International Travel<30 days: No Contact w/Intl Traveler<30days: No Traveled to known affect area: No History of Present Illness HPI 56-year-old female that presents to the ED for evaluation of swollen tongue, lymphadenopathy and pain on the mouth. Per patient she's had this for about a month now. She went to an urgent care about 2 weeks ago was given clindamycin to cover for infection. Per patient ever since he's also developed some epigastric pain as well as nausea and vomiting and diarrhea. She is not sure if this is related to the mouth or to the new medication. She actually has finished antibiotics and she still doesn't feel better. She has a history of COPD, smoking and previous cervical cancer. She states having chemoradiation in the past. No fevers chills or sweats. Pain. Patient is 4 out of 10. She does have multiple allergies different medications. Denies any urinary issues per per patient she does have some nausea and vomiting and has vomited today. She has had some liquidy diarrhea. Comes and goes. Denies any back pain or neck pain. No chest pain or shortness of breath. No cough or runny nose. PFSH Past Medical History Asthma: Yes Blood Disorders: No Anxiety: Yes Depression: No Heart Rhythm Problems: No Cancer: Yes (2002) Cardiovascular Problems: Yes High Cholesterol: No Chemotherapy: Yes (2002) Chest Pain: No Congestive Heart Failure: Yes COPD: Yes Cerebrovascular Accident: Yes Coronary Artery Disease: No Diabetes: No Diminished Hearing: No Endocrine: Yes Gastrointestinal Disorders: Yes (Ibs, colitis) GERD: Yes Genitourinary: No Hepatitis: Yes (HEPATITIS C) Hiatal Hernia: No Hypertension: Yes Immune Disorder: Yes (HEP C FROM BLOOD TRANSFUSION 1974 ) Implanted Vascular Access Dvce: No Kidney Stones: Yes Musculoskeletal: Yes (back) Neurologic: Yes (seizures, encephalopathy) Psychiatric: Yes Reproductive: No Respiratory: Yes Immunizations Current: Yes Migraines: Yes Radiation Therapy: No Renal Failure: No Seizures: Yes Sleep Apnea: No Thyroid Disease: Yes (HYPER (GRAVES)) Ulcer: No Menopausal: Yes : 8 Para: 5 Miscarriage: 3 Past Surgical History Abdominal Surgery: Yes Arteriovenous Shunt: No Body Medical Devices: steel plate in neck, hernia mesh Cardiac Surgery: No Section: Yes (2) Cholecystectomy: Yes Ear Surgery: No Endocrine Surgery: No Eye Surgery: No Genitourinary Surgery: No Gynecologic Surgery: Yes Hysterectomy: Yes Insulin Pump: No Joint Replacement: No Neurologic Surgery: No Oral Surgery: No Pacemaker: No Thoracic Surgery: No Other Surgery: Yes (PLATE PLACED IN NECK WITH CERVIAL FUSION) Social History Alcohol Use: No Tobacco Use: Yes (1-2 cigs a day) Substance Use: No Allergies-Medications (Allergen,Severity, Reaction): Coded Allergies: ciprofloxacin (Unverified Allergy, Severe, HIVES, THROAT SWELLING AND DIARRHEA, 01/13/17) diatrizoate meglumine (Unverified Allergy, Severe, 12/13/16) gadobenic acid (Unverified Allergy, Severe, 12/13/16) gadodiamide (Unverified Allergy, Severe, 12/13/16) gadoteridol (Unverified Allergy, Severe, 12/13/16) iodine (Unverified Allergy, Severe, HIVES, THROAT SWELLING, 01/13/17) iodixanol (Unverified Allergy, Severe, 12/13/16) iohexol (Unverified Allergy, Severe, 12/13/16) ketorolac (Unverified Allergy, Severe, HIVES AND THROAT SWELLING, 01/13/17) penicillin G (Unverified Allergy, Severe, HIVES, THROAT SWELLING, 12/13/16) potassium iodide (Unverified Allergy, Severe, HIVES, THROAT SWELLING, 12/13) povidone-iodine (Unverified Allergy, Severe, HIVES, THROAT SWELLING, ) sodium iodide (Unverified Allergy, Severe, HIVES, THROAT SWELLING, 12/13/16 ) sodium iodide (Unverified Allergy, Severe, HIVES, THROAT SWELLING, 12/13/16 ) estradiol (Unverified Allergy, Intermediate, hives, 12/13/16) estrogens, conjugated (Unverified Allergy, Intermediate, hives, 12/13/16) Reported Meds & Prescriptions Reported Meds & Active Scripts Active Zofran Odt (Ondansetron Odt) 4 Mg Tab 4 Mg SL Q6HR PRN Flagyl (Metronidazole) 500 Mg Tab 500 Mg PO BID 10 Days Prednisone 20 Mg Tab 20 Mg PO BID 5 Days Doxycycline Hyclate 100 Mg Cap 100 Mg PO BID 10 Days Clindamycin (Clindamycin HCl) 150 Mg Cap 450 Mg PO TID Clindamycin (Clindamycin HCl) 150 Mg Cap 450 Mg PO Q6H Lisinopril 20 Mg Tab 20 Mg PO DAILY Singulair (Montelukast Sodium) 10 Mg Tab 10 Mg PO HS Reported [creon] Xifaxan (Rifaximin) 550 Mg Tab 550 Mg PO Q12HR Singulair (Montelukast Sodium) 10 Mg Tab 1 Tab PO BID Zyrtec (Cetirizine HCl) 10 Mg Tablet 1 Tab PO BID Omeprazole 40 Mg Cap 40 Mg PO DAILY Propranolol (Propranolol HCl) 20 Mg Tab 20 Mg PO DAILY Review of Systems Except as stated in HPI: all other systems reviewed are Neg Physical Exam Narrative GENERAL: SKIN: Warm and dry. HEAD: Atraumatic. Normocephalic. EYES: Pupils equal and round. No scleral icterus. No injection or drainage. ENT: No nasal bleeding or discharge. Mucous membranes pink and moist. Tongue is midline. No uvula deviation. Slightly swollen but not severely. Does not appear to be edematous. Patient does have what appears to be a small opening on the left side of the tongue appears to be almost like a laceration. No obvious purulence noted from appears slightly tender in the area. Most of the tenderness and swelling is in this one spot. Patient does have bad dentition noted throughout the entire mouth especially on the left side on the lower side. Some soft tissue swelling noted in this area as well. No obvious abscess however noted. Tonsils are not enlarged or swollen. No uvula deviation. Slight cervical lymphadenopathy noted. NECK: Trachea midline. No JVD. CARDIOVASCULAR: Regular rate and rhythm. RESPIRATORY: No accessory muscle use. Clear to auscultation. Breath sounds equal bilaterally. GASTROINTESTINAL: Abdomen soft, non-tender, nondistended. Hepatic and splenic margins not palpable. MUSCULOSKELETAL: Extremities without clubbing, cyanosis, or edema. No obvious deformities. NEUROLOGICAL: Awake and alert. No obvious cranial nerve deficits. Motor grossly within normal limits. Five out of 5 muscle strength in the arms and legs. Normal speech. PSYCHIATRIC: Appropriate mood and affect; insight and judgment normal. Data Data Last Documented VS Vital Signs Date Time Temp Pulse Resp B/P (MAP) Pulse Ox O2 Delivery O2 Flow Rate FiO2 02/18/17 15:39 98.5 67 18 173/93 (119) 98 Room Air Orders Orders Complete Blood Count With Diff (02/18/17 13:47) Iv Access Insert/Monitor (02/18/17 13:47) C Diff Toxin Pcr (02/18/17 13:47) Ct Soft Tiss Neck W/O Iv Cont (02/18/17 ) Dexamethasone Inj (Decadron Inj) (02/18/17 14:00) Comprehensive Metabolic Panel (02/18/17 14:02) Lipase (02/18/17 14:02) Sodium Chlor 0.9% 1000 Ml Inj (Ns 1000 M (02/18/17 14:02) Group A Rapid Strep Screen (02/18/17 14:02) Magnesium (Mg) (02/18/17 14:02) Strep Culture (Group A) (02/18/17 14:30) Ed Discharge Order (02/18/17 16:27) Labs Laboratory Tests Test 02/18/17 14:30 White Blood Count 5.7 TH/MM3 Red Blood Count 4.07 MIL/MM3 Hemoglobin 13.3 GM/DL Hematocrit 39.0 % Mean Corpuscular Volume 95.8 FL Mean Corpuscular Hemoglobin 32.6 PG Mean Corpuscular Hemoglobin Concent 34.0 % Red Cell Distribution Width 14.0 % Platelet Count 75 TH/MM3 Mean Platelet Volume 9.0 FL Neutrophils (%) (Auto) 59.7 % Lymphocytes (%) (Auto) 29.8 % Monocytes (%) (Auto) 7.0 % Eosinophils (%) (Auto) 3.0 % Basophils (%) (Auto) 0.5 % Neutrophils # (Auto) 3.4 TH/MM3 Lymphocytes # (Auto) 1.7 TH/MM3 Monocytes # (Auto) 0.4 TH/MM3 Eosinophils # (Auto) 0.2 TH/MM3 Basophils # (Auto) 0.0 TH/MM3 CBC Comment AUTO DIFF Differential Comment AUTO DIFF CONFIRMED Blood Urea Nitrogen 9 MG/DL Creatinine 0.61 MG/DL Random Glucose 100 MG/DL Total Protein 7.0 GM/DL Albumin 3.6 GM/DL Calcium Level 8.6 MG/DL Magnesium Level 2.1 MG/DL Alkaline Phosphatase 108 U/L Aspartate Amino Transf (AST/SGOT) 37 U/L Alanine Aminotransferase (ALT/SGPT) 34 U/L Total Bilirubin 1.4 MG/DL Sodium Level 141 MEQ/L Potassium Level 4.0 MEQ/L Chloride Level 111 MEQ/L Carbon Dioxide Level 25.6 MEQ/L Anion Gap 4 MEQ/L Estimat Glomerular Filtration Rate 101 ML/MIN Lipase 165 U/L MDM Medical Decision Making Medical Screen Exam Complete: Yes Emergency Medical Condition: Yes Medical Record Reviewed: Yes Interpretation(s) CBC & BMP Diagram 02/18/17 14:30 Total Protein 7.0, Albumin 3.6, Calcium Level 8.6, Magnesium Level 2.1, Alkaline Phosphatase 108, Aspartate Amino Transf (AST/SGOT) 37, Alanine Aminotransferase (ALT/SGPT) 34, Total Bilirubin 1.4 H Last Impressions Neck CT 02/18/17 0000 Signed Impressions: Service Date/Time: Saturday, February 18, 2017 14:36 - CONCLUSION: Normal examination. Pascual Chi Jr., MD strep test negative Differential Diagnosis Abscesses versus lymphadenopathy versus strep throat versus lung infection versus dental infection Narrative Course 56-year-old female that presents to the ED for evaluation of throat pain and swollen tongue. Patient was properly examined and was found to have signs and symptoms concerning for infection. Case was discussed in my attending who recommends CT and labs. Patient for she cannot have contrast for CT without contrast was ordered. Exam to my examination appears to be benign. She does not appear to have any sign of anaphylaxis. This appears to be a chronic infection possibly versus tumor. Patient was turned dexamethasone as per my attendings recommendations. Labs and imaging showed no sign of acute disease. Patient was reassured. My attending Dr. Benitez evaluated the patient and recommends stopping the lisinopril the patient is taking to cover for possible angioedema. Patient agrees with this plan. Patient was started on prednisone. She was instructed to follow with her primary care doctor this week. She was told to see ED for any worsening symptoms. Follow with PCP. Motrin or Tylenol for pain as needed. My attending recommends against flagyl to cover for C. diff due to diarrhea as patients WBC count is normal. Told to take OTC meds. Given prescription for zofran. Diagnosis Primary Impression: Mild tongue swelling Patient Instructions: General Instructions Additional Instructions: Take medication as prescribed. This will help with the swelling. Follow with her doctor this week. Stop the lisinopril for the next couple of weeks and is alone by help with her symptoms. Follow with dentist to get her teeth fixed this is likely as well as sources of ear infections. See ED for any worsening symptoms. Motrin or tylenol for pain. Med/Other Pt SpecificInfo: Prescription(s) given Scripts Ondansetron Odt (Zofran Odt) 4 Mg Tab 4 MG SL Q6HR Y for Nausea/Vomiting, #30 TAB 0 Refills Prov: Suly Bravo DO 02/18/17 Prednisone (Prednisone) 20 Mg Tab 20 MG PO BID for 5 Days, #10 TAB 0 Refills Prov: Suly Bravo DO 02/18/17 Disposition: 01 DISCHARGE HOME Condition: Stable Smith Doyle Feb 18, 2017 15:18
[2017-02-18 15:39] VITALS: BP 173/93; PULSE 67; RESP 18; TEMP 98.5; O2SAT 98
[2017-02-18] MEDS ORDERED: DOXY100C PO ×2 (16:11)
[2017-02-18] MEDS ORDERED: PRED20 PO ×2 (16:11)
[2017-02-18] MEDS ORDERED: METR-1 PO ×2 (16:12)
[2017-02-18] MEDS ORDERED: ZOFR4TAB3 SL ×2 (16:12)
[2017-02-22] MEDS ORDERED: VENTAER INH ×2 (00:05)
[2017-02-23] MEDS ORDERED: VENTAER INH ×2 (09:25)
[2017-03-03] MEDS ORDERED: MAAL10003 CHEW ×2 (06:07)
[2017-03-03] MEDS ORDERED: PRED-503 PO ×2 (06:07)
[2017-03-03] MEDS ORDERED: VENTAER INH ×2 (06:07)
== END 2017-02-18 17:25 | disposition home or self-care (01) ==
LOC: NEPC 13:17
DX: R22.0 Localized swelling, mass and lump, head (principal); R07.0 Pain in throat; R19.7 Diarrhea, unspecified; R10.13 Epigastric pain; R11.2 Nausea with vomiting, unspecified; J44.9 Chronic obstructive pulmonary disease, unspecified; I11.0 Hypertensive heart disease with heart failure; I50.9 Heart failure, unspecified; R56.9 Unspecified convulsions
CPT/HCPCS: 70490; 80053; 83690; 83735; 85025; 87081; 87880; 96374; 99285; J1100; J7030

== ENCOUNTER 2017-02-21 23:47 | Observation (INO) | payer MEDICARE, OTHER ==
[~2017-02-21] VITALS: Ht 162.6 cm; Wt 63.6 kg
[~2017-02-21 23:47] MED LIST changes: +CLIN150C14 PO; -CLIN1CAP5 PO; +PRED20 PO; +ZOFR4TAB3 SL
[2017-02-21 23:52] VITALS: BP 175/95; PULSE 75; RESP 22; TEMP 98.7; O2SAT 96
[2017-02-22] VITALS (7 sets, daily range): BP systolic 137–147; BP diastolic 71–80; PULSE 73–82; RESP 16; TEMP 97.9–98.4; O2SAT 92–97
[2017-02-22] MEDS ORDERED: VENTAER INH (00:05)
--- NOTE | 2017-02-22 00:12 | PD ---
HPI Chief Complaint: Respiratory Symptoms Time Seen by Provider: 00:12 Travel History International Travel<30 days: No Contact w/Intl Traveler<30days: No Traveled to known affect area: No History of Present Illness HPI 56-year-old female came to the emergency room with history of shortness of breath and chest pain that started earlier last night. Patient has history of COPD. She describes the chest pain as a dull ache in the subxiphoid area. No radiation of the pain. Pain is just there. No aggravating or relieving factors. She has been nauseous. No vomiting or diaphoresis. Patient was brought by EMS. She received nebulizer on route. She did not get aspirin since patient has history of hepatitis and cannot get aspirin. She appeared to be in some distress. Patient is a smoker. Has had stress test many years ago. She said she had bronchitis 3 weeks ago. [facility] Past Medical History Narrative Medical List of her past medical, surgical, social and family history is reviewed from the nursing note. Asthma: Yes Blood Disorders: No Anxiety: Yes Depression: No Heart Rhythm Problems: No Cancer: Yes (2002) Cardiovascular Problems: Yes High Cholesterol: No Chemotherapy: Yes (2002) Chest Pain: Yes Congestive Heart Failure: Yes COPD: Yes Cerebrovascular Accident: Yes (2011 thinks has had about 2-3) Coronary Artery Disease: No Diabetes: No Diminished Hearing: No Endocrine: Yes Gastrointestinal Disorders: Yes (Ibs, colitis) GERD: Yes Genitourinary: No Hepatitis: Yes (HEPATITIS C) Hiatal Hernia: No Hypertension: Yes Immune Disorder: Yes (HEP C FROM BLOOD TRANSFUSION 1974 ) Implanted Vascular Access Dvce: No Kidney Stones: Yes Medical other: No Musculoskeletal: Yes (back) Neurologic: Yes (seizures, encephalopathy) Psychiatric: Yes Reproductive: No Respiratory: Yes Immunizations Current: Yes Migraines: Yes Radiation Therapy: No Renal Failure: No Seizures: Yes Sleep Apnea: No Thyroid Disease: Yes (HYPER (GRAVES)) Ulcer: No Tetanus Vaccination: < 5 Years Influenza Vaccination: Yes ?: Not Menopausal: Yes : 8 Para: 5 Miscarriage: 3 Past Surgical History Abdominal Surgery: Yes Arteriovenous Shunt: No Body Medical Devices: steel plate in neck, hernia mesh Cardiac Surgery: No Section: Yes (2) Cholecystectomy: Yes Ear Surgery: No Endocrine Surgery: No Eye Surgery: No Genitourinary Surgery: No Gynecologic Surgery: Yes Hysterectomy: Yes Insulin Pump: No Joint Replacement: No Neurologic Surgery: No Oral Surgery: No Pacemaker: No Thoracic Surgery: No Other Surgery: Yes (PLATE PLACED IN NECK WITH CERVIAL FUSION) Social History Alcohol Use: No Tobacco Use: Yes (1-2 cigs a day) Substance Use: No Allergies-Medications (Allergen,Severity, Reaction): Coded Allergies: ciprofloxacin (Verified Allergy, Severe, HIVES, THROAT SWELLING AND DIARRHEA, 02/26/17) diatrizoate meglumine (Verified Allergy, Severe, 02/26/17) gadobenic acid (Verified Allergy, Severe, 02/26/17) gadodiamide (Verified Allergy, Severe, 02/26/17) gadoteridol (Verified Allergy, Severe, 02/26/17) iodine (Verified Allergy, Severe, HIVES, THROAT SWELLING, 02/26/17) iodixanol (Verified Allergy, Severe, 02/26/17) iohexol (Verified Allergy, Severe, 02/26/17) ketorolac (Verified Allergy, Severe, HIVES AND THROAT SWELLING, 02/26/17) lisinopril (Verified Allergy, Severe, tongue / throat swelling, 02/26/17) penicillin G (Verified Allergy, Severe, HIVES, THROAT SWELLING, 02/26/17) potassium iodide (Verified Allergy, Severe, HIVES, THROAT SWELLING, ) povidone-iodine (Verified Allergy, Severe, HIVES, THROAT SWELLING, ) sodium iodide (Verified Allergy, Severe, HIVES, THROAT SWELLING, 02/26/17) sodium iodide (Verified Allergy, Severe, HIVES, THROAT SWELLING, 02/26/17) estradiol (Verified Allergy, Intermediate, hives, 02/26/17) estrogens, conjugated (Verified Allergy, Intermediate, hives, 02/26/17) Comments List of her allergies reviewed from the nursing note. Reported Meds & Prescriptions Reported Meds & Active Scripts Active Zofran Odt (Ondansetron Odt) 4 Mg Tab 4 Mg SL Q6HR PRN Singulair (Montelukast Sodium) 10 Mg Tab 10 Mg PO HS Reported [creon] Xifaxan (Rifaximin) 550 Mg Tab 550 Mg PO DAILY Zyrtec (Cetirizine HCl) 10 Mg Tablet 1 Tab PO BID Omeprazole 40 Mg Cap 40 Mg PO DAILY Propranolol (Propranolol HCl) 20 Mg Tab 20 Mg PO DAILY Narrative Medication List of her home medications reviewed from the nursing note. Review of Systems Except as stated in HPI: all other systems reviewed are Neg Cardiovascular: Positive: Chest Pain or Discomfort Respiratory: Positive: Shortness of Breath Physical Exam Narrative GENERAL: Awake, alert, anxious, moderate distress SKIN: Focused skin assessment warm/dry. HEAD: Atraumatic. Normocephalic. EYES: Pupils equal and round. No scleral icterus. No injection or drainage. ENT: No nasal bleeding or discharge. Mucous membranes pink and moist. NECK: Trachea midline. No JVD. CARDIOVASCULAR: Regular rate and rhythm. No murmur appreciated. RESPIRATORY: No accessory muscle use. Decreased air entry bilaterally with end expiratory wheeze GASTROINTESTINAL: Abdomen soft, non-tender, nondistended. Hepatic and splenic margins not palpable. MUSCULOSKELETAL: No obvious deformities. No clubbing. No cyanosis. No edema. NEUROLOGICAL: Awake and alert. No obvious cranial nerve deficits. Motor grossly within normal limits. Normal speech. PSYCHIATRIC: Appropriate mood and affect; insight and judgment normal. Data Data Last Documented VS Orders Orders Complete Blood Count With Diff (02/22/17:) Comprehensive Metabolic Panel (02/22/17:) B-Type Natriuretic Peptide (02/22/17:) Prothrombin Time / Inr (Pt) (02/22/17:) Magnesium (Mg) (02/22/17:) Troponin I (02/22/17:) Urinalysis - C+S If Indicated (02/22/17:) Iv Access Insert/Monitor (02/22/17:) Electrocardiogram (02/22/17:) Ecg Monitoring (02/22/17:) Oximetry (02/22/17:) Oxygen Administration (02/22/17:) Chest, Single Ap (02/22/17:) Sodium Chloride 0.9% Flush (Ns Flush) (02/22/17 00:30) Albuterol-Ipratropium Neb (Duoneb Neb) (02/22/17:30) Thyroid Stimulating Hormone (02/22/17:21) Blood Culture (02/22/17:21) Morphine Inj (Morphine Inj) (02/22/17 02:00) Ondansetron Inj (Zofran Inj) (02/22/17 02:00) Admit Order (Ed Use Only) (02/22/17 02:01) Place In Observation (02/22/17 02:02) Activity Bed Rest With Brp (02/22/17 02:02) Vital Signs (Adult) Q4H (02/22/17 02:02) Cardiac Rhythm .As Directed (02/22/17 02:02) Notify Dr: Other .PRN (02/22/17 02:02) Notify Parameters (02/22/17 02:02) Resp Oxygen Nasal Cannula (02/22/17 ) Ckmb (Isoenzyme) Profile (02/22/17 02:02) Ckmb (Isoenzyme) Profile (02/22/17 05:02) Troponin I (02/22/17 02:02) Troponin I (02/22/17 05:02) Electrocardiogram (02/22/17 02:02) Electrocardiogram (02/22/17 05:02) ^ Obtain (02/22/17 02:02) Sodium Chloride 0.9% Flush (Ns Flush) (02/22/17 02:15) Sodium Chloride 0.9% Flush (Ns Flush) (02/22/17 09:00) Acetaminophen (Tylenol) (02/22/17 02:15) Ondansetron Inj (Zofran Inj) (02/22/17 02:15) Nitroglycerin Sl (Nitrostat Sl) (02/22/17 02:15) Customer Training Specialist / Telemetry REMI.Q8H (02/22/17 02:02) Ondansetron Inj (Zofran Inj) (02/22/17 02:02) Labs Laboratory Tests Test 02/22/17 00:02 02/22/17 00:48 Urine Color LIGHT-YELLOW Urine Turbidity CLEAR Urine pH 8.0 Urine Specific [place] 1.013 Urine Protein NEG mg/dL Urine Glucose (UA) NEG mg/dL Urine Ketones NEG mg/dL Urine Occult Blood NEG Urine Nitrite NEG Urine Bilirubin NEG Urine Urobilinogen LESS THAN 2.0 MG/DL Urine Leukocyte Esterase NEG Urine RBC 1 /hpf Urine WBC 2 /hpf Microscopic Urinalysis Comment CULT NOT INDICATED White Blood Count 3.6 TH/MM3 Red Blood Count 3.65 MIL/MM3 Hemoglobin 11.9 GM/DL Hematocrit 34.7 % Mean Corpuscular Volume 95.1 FL Mean Corpuscular Hemoglobin 32.7 PG Mean Corpuscular Hemoglobin Concent 34.3 % Red Cell Distribution Width 14.0 % Platelet Count 61 TH/MM3 Mean Platelet Volume 9.9 FL Neutrophils (%) (Auto) 67.7 % Lymphocytes (%) (Auto) 23.8 % Monocytes (%) (Auto) 4.7 % Eosinophils (%) (Auto) 3.5 % Basophils (%) (Auto) 0.3 % Neutrophils # (Auto) 2.5 TH/MM3 Lymphocytes # (Auto) 0.9 TH/MM3 Monocytes # (Auto) 0.2 TH/MM3 Eosinophils # (Auto) 0.1 TH/MM3 Basophils # (Auto) 0.0 TH/MM3 CBC Comment AUTO DIFF Differential Comment AUTO DIFF CONFIRMED Platelet Estimate LOW Platelet Morphology Comment NORMAL Prothrombin Time 12.2 SEC Prothromb Time International Ratio 1.1 RATIO Blood Urea Nitrogen 14 MG/DL Creatinine 0.58 MG/DL Random Glucose 204 MG/DL Total Protein 6.3 GM/DL Albumin 3.1 GM/DL Calcium Level 8.0 MG/DL Magnesium Level 1.9 MG/DL Alkaline Phosphatase 108 U/L Aspartate Amino Transf (AST/SGOT) 38 U/L Alanine Aminotransferase (ALT/SGPT) 40 U/L Total Bilirubin 0.9 MG/DL Sodium Level 141 MEQ/L Potassium Level 3.9 MEQ/L Chloride Level 109 MEQ/L Carbon Dioxide Level 25.0 MEQ/L Anion Gap 7 MEQ/L Estimat Glomerular Filtration Rate 107 ML/MIN Troponin I LESS THAN 0.02 NG/ML B-Type Natriuretic Peptide 26 PG/ML Thyroid Stimulating Hormone 3rd Gen 0.944 uIU/ML MDM Medical Decision Making Medical Screen Exam Complete: Yes Emergency Medical Condition: Yes Medical Record Reviewed: Yes Interpretation(s) Twelve-lead EKG was reviewed by me. Normal sinus rhythm, normal axis, nonspecific ST-T wave changes. Heart rate of 71 bpm. Differential Diagnosis COPD exacerbation, CHF, ACS, non-STEMI Narrative Course 2 AM patient was given 3 duo nebs [id number] and IV Solu-Medrol. Blood test results of back and within acceptable limits except for her blood sugar which is slightly elevated. Chest x-rays negative. I reassessed her and lung sounds are clear. Patient still continues to complain of the subxiphoid pain. I have ordered pain medication and Zofran for nausea that she is also complaining. I would like to admit her to the chest pain center so that she can be evaluated by the interlocking machine operator for ACS. I spoke this to the patient and she understands and agrees. Procedures EKG Prior to Arrival: No Diagnosis Primary Impression: COPD with acute exacerbation Additional Impression: Chest pain Qualified Codes: R07.9 - Chest pain, unspecified Admitting Information Admitting Physician Requests: Mika Her MD Feb 22, 2017 00:12
[2017-02-22] MEDS ORDERED: SODIUM CHLORIDE 0.9% FLUSH 10 ML FLUSH IVF PRN (00:30)
[2017-02-22 00:56] LABS: BILIRUBIN, URINE NEG (NEG); BLOOD, URINE NEG (NEG); GLUCOSE,URINE NEG (NEG); KETONE, URINE NEG (NEG); NITRITE,URINE NEG (NEG); URINE COLOR LIGHT-YELLOW (YELLW/STRAW); URINE LEUKOCYTE ESTERASE NEG (NEG)
[2017-02-22 01:00] LABS: AUTOMATED NEUTROPHIL # 2.5 TH/MM3 (1.8-7.7); BASOPHIL % 0.3 % (0.0-2.0); EOSINOPHIL # 0.1 TH/MM3 (0-0.4); EOSINOPHIL % 3.5 % (0.0-4.0); HEMATOCRIT 34.7 % (35.0-46.0); HEMOGLOBIN 11.9 GM/DL (11.6-15.3); LYMPH % 23.8 % (9.0-44.0); LYMPHOCYTE # 0.9 TH/MM3 (1.0-4.8); MEAN CELL VOLUME 95.1 FL (80.0-100.0); MEAN CORPUSCULAR HEMOGLOBIN 32.7 PG (27.0-34.0); MEAN CORPUSCULAR HGB CONC 34.3 % (32.0-36.0); MEAN PLATELET VOLUME 9.9 FL (7.0-11.0); MONO % 4.7 % (0.0-8.0); MONOCYTE # 0.2 TH/MM3 (0-0.9); NEUT % 67.7 % (16.0-70.0); PLATELET COUNT 61 TH/MM3 (150-450); RED BLOOD COUNT 3.65 MIL/MM3 (4.00-5.30); WHITE BLOOD COUNT 3.6 TH/MM3 (4.0-11.0)
[2017-02-22 01:06] LABS: INTERNATIONAL NORMALIZED RATIO 1.1 RATIO; PROTHROMBIN TIME - PATIENT 12.2 SEC (9.8-11.6)
--- NOTE | 2017-02-22 01:11 | RADRPT ---
EXAM DATE/TIME: 02/22/2017 00:35 [facility] COMPARISON: CHEST SINGLE AP, April 12, 2016, 19:27. INDICATIONS : Shortness of breath. MEDICAL HISTORY : Cerebrovascular disease. Hypertension Gastroesophageal reflux disease. Hep C CHF SURGICAL HISTORY : Cholecystectomy. Mastectomy ENCOUNTER: Initial ACUITY: 1 day PAIN SCORE: 0/10 LOCATION: Bilateral chest FINDINGS: A single view of the chest demonstrates the lungs to be symmetrically aerated without evidence of mas s, infiltrate or effusion. The cardiomediastinal contours are unremarkable. Osseous structures are intact. CONCLUSION: No acute disease. Serafin Chilel MD on February 22, 2017 at 1:10 Board Certified Radiologist. This report was verified electronically.
[2017-02-22 01:22] LABS: ALKALINE PHOSPHATASE 108 U/L (45-117); TOTAL BILIRUBIN ADULT 0.9 MG/DL (0.2-1.0); TOTAL PROTEIN 6.3 GM/DL (6.4-8.2); TROPONIN I LESS THAN 0.02 NG/ML (0.02-0.05)
[2017-02-22 01:35] LABS: ALBUMIN 3.1 GM/DL (3.4-5.0); ALT (GPT) 40 U/L (10-53); AST (GOT) 38 U/L (15-37); BLOOD UREA NITROGEN 14 MG/DL (7-18); CHLORIDE 109 MEQ/L (98-107); CREATININE 0.58 MG/DL (0.50-1.00); GLOMERULAR FILTRATION RATE 107 ML/MIN (>89); GLUCOSE,RANDOM 204 MG/DL (74-106); MAGNESIUM 1.9 MG/DL (1.5-2.5); SODIUM (NA) 141 MEQ/L (136-145)
[2017-02-22] MEDS: RESP: ALBUTEROL 2.5 MG/IPRATROPIUM 0.5 MG NEB (SCH) INH ×2 (01:35→01:36)
[2017-02-22] MEDS ORDERED: MORPHINE SULFATE 2 MG/ML INJ IV PUSH ONE (02:00)
[2017-02-22] MEDS ORDERED: ONDANSETRON HCL 4 MG/2 ML VIAL IV PUSH ONE (02:00)
[2017-02-22] MEDS ORDERED: ONDANSETRON HCL 4 MG/2 ML VIAL ONE (02:02)
[2017-02-22] MEDS ORDERED: NITROGLYCERIN 0.4 MG SL 25 TABS/BTL SL PRN (02:15)
[2017-02-22] MEDS ORDERED: SODIUM CHLORIDE 0.9% FLUSH 10 ML FLUSH IV FLUSH PRN (02:15)
[2017-02-22] MEDS ORDERED: ACETAMINOPHEN 500 MG CPLT PO PRN (02:15)
[2017-02-22] MEDS: ONDANSETRON HCL 4 MG/2 ML VIAL IV PUSH PRN ×2 (02:44→09:35)
[2017-02-22 03:09] LABS: TROPONIN I LESS THAN 0.02 NG/ML (0.02-0.05)
[2017-02-22 06:12] LABS: TROPONIN I LESS THAN 0.02 NG/ML (0.02-0.05)
[2017-02-22] MEDS ORDERED: RESP: ALBUTEROL 2.5 MG/IPRATROPIUM 0.5 MG NEB (PRN) INH (08:00)
[2017-02-22] MEDS ORDERED: LIDOCAINE VISCOUS 2% SOLN 15 ML UDC PO ONE (08:00)
[2017-02-22] MEDS ORDERED: RESP: ALBUTEROL 2.5 MG/IPRATROPIUM 0.5 MG NEB (SCH) INH ONE ×2 (08:00→10:45)
[2017-02-22] MEDS ORDERED: ALUMINUM/MAGNESIUM/SIMETH 30 ML CUP PO ONE (08:00)
[2017-02-22] MEDS ORDERED: ATROPINE/SCOPOLAM/HYOSCYAM/PB ELIXIR 10 ML CUP PO ONE (08:00)
[2017-02-22] MEDS ORDERED: SODIUM CHLORIDE 0.9% FLUSH 10 ML FLUSH IV FLUSH SCH (09:00)
[2017-02-22] MEDS ORDERED: PANTOPRAZOLE SOD 40 MG DELAYED RELEASE TAB PO SCH (09:00)
--- NOTE | 2017-02-22 09:16 | HHI.HP ---
[facility] Primary Care Physician Lisa Nixon MD Chief Complaint Shortness of breath History of Present Illness This is a 56-year-old female that presents to ED with history of COPD with a complaint of shortness of breath. States she has been short of breath for the last 3 days. She tried her nebulizer yesterday without relief prompting her to come to the ED. She has had a clear color productive cough which she attributes that to her smoker's cough. Patient continues to smoke cigarettes. He asked if she is having chest discomfort she responds no and then points to the epigastric region. She states she's had some discomfort there for 2 days with waxing and waning intensity. The morning tends discomfort seemed last a few minutes. She believes it's the same discomfort that she had when she was diagnosed with an ulcer by endoscopy a couple years ago. States she has been on Prilosec since. She's had some nausea with one episode of emesis which she states was a clear fluid. No hematemesis. She had diarrhea complete weeks ago but that is resolved. Denies black, tarry, or bloody stools. Review of Systems General: Patient denies fevers, chills recent, and recent travel HEENT: Patient denies headache, sore throat, difficulty swallowing. Cardiovascular: Has the chest discomfort as mentioned above. Denies sensation of heart beating rapidly or irregularly. No syncope. Denies diaphoresis. Respiratory: She has been short of breath. Denies inspirational chest discomfort. States she has had a clear colored productive cough for nonproductive cough which she attributes that to her typical smoker's cough. Denies hemoptysis. She has no wheezing and states the nebulizer at home did not help.. GI: Moist epigastric region to indicate where her discomfort is at. Has had nausea with one episode of emesis. Denies hematemesis. Denies black, tarry, or bloody stools. Musculoskeletal: Patient denies joint pain or edema. Denies calf pain or edema. Neurovascular: Patient denies numbness, tingling, weakness in extremities. Denies headache. Endocrine: Denies polyuria and polydipsia. Hematologic: Denies easy bruising. Skin: Denies rash or itching. Past Family Social History Allergies: Coded Allergies: ciprofloxacin (Unverified Allergy, Severe, HIVES, THROAT SWELLING AND DIARRHEA, 01/13/17) diatrizoate meglumine (Unverified Allergy, Severe, 12/13/16) gadobenic acid (Unverified Allergy, Severe, 12/13/16) gadodiamide (Unverified Allergy, Severe, 12/13/16) gadoteridol (Unverified Allergy, Severe, 12/13/16) iodine (Unverified Allergy, Severe, HIVES, THROAT SWELLING, 01/13/17) iodixanol (Unverified Allergy, Severe, 12/13/16) iohexol (Unverified Allergy, Severe, 12/13/16) ketorolac (Unverified Allergy, Severe, HIVES AND THROAT SWELLING, 01/13/17) penicillin G (Unverified Allergy, Severe, HIVES, THROAT SWELLING, 12/13/16) potassium iodide (Unverified Allergy, Severe, HIVES, THROAT SWELLING, 12/13) povidone-iodine (Unverified Allergy, Severe, HIVES, THROAT SWELLING, ) sodium iodide (Unverified Allergy, Severe, HIVES, THROAT SWELLING, 12/13/16 ) sodium iodide (Unverified Allergy, Severe, HIVES, THROAT SWELLING, 12/13/16 ) estradiol (Unverified Allergy, Intermediate, hives, 12/13/16) estrogens, conjugated (Unverified Allergy, Intermediate, hives, 12/13/16) Past Medical History COPD, tobacco abuse, hypertension, hepatitis C, hiatal hernia, GERD, gastric ulcer. Denies diabetes, hyperlipidemia, and known CAD. Past Surgical History Cervical fusion. Endoscopy. 2, cholecystectomy, and hysterectomy. Reported Medications Reported Meds & Active Scripts Active Zofran Odt (Ondansetron Odt) 4 Mg Tab 4 Mg SL Q6HR PRN Prednisone 20 Mg Tab 20 Mg PO BID 5 Days Singulair (Montelukast Sodium) 10 Mg Tab 10 Mg PO HS Reported Ventolin Hfa 18 GM Inh (Albuterol Sulfate) 90 Mcg/Act Aer 2-3 Puff INH Q4H PRN [creon] Xifaxan (Rifaximin) 550 Mg Tab 550 Mg PO Q12HR Zyrtec (Cetirizine HCl) 10 Mg Tablet 1 Tab PO BID Omeprazole 40 Mg Cap 40 Mg PO DAILY Propranolol (Propranolol HCl) 20 Mg Tab 20 Mg PO DAILY Active Ordered Medications Current Medications Medications (Trade) Dose Ordered Sig/Lainey Route Start Time Stop Time Status Last Admin (NS Flush) 2 ml UNSCH PRN IVF 02/22/17 00:30 (NS Flush) 2 ml UNSCH PRN IV FLUSH 02/22/17 02:15 02/22/17 02:17 (NS Flush) 2 ml BID IV FLUSH 02/22/17 09:00 (Tylenol) 500 mg Q4H PRN PO 02/22/17 02:15 (Zofran Inj) 4 mg Q6H PRN IV PUSH 02/22/17 02:15 02/22/17 02:44 (Nitrostat Sl) 0.4 mg Q5M PRN SL 02/22/17 02:15 (Duoneb Neb) 1 ampule Q4HR NEB PRN INH 02/22/17 08:00 (Protonix) 40 mg DAILY PO 02/22/17 09:00 Family History Denies family history of CAD. Social History Patient has been smoking about 3 cigarettes a day for 1 year. Prior that she smoked less than one half pack of cigarettes a day for 25 years. Denies alcohol or illicit drugs. Physical Exam Vital Signs Vital Signs Date Time Temp Pulse Resp B/P (MAP) Pulse Ox O2 Delivery O2 Flow Rate FiO2 02/22/17 08:07 98.1 82 16 147/80 (102) 96 02/22/17 07:12 92 21 02/22/17 04:02 76 02/22/17 03:39 98.4 79 16 137/71 (93) 92 02/22/17 01:30 97 21 02/22/17 00:58 95 Room Air 02/22/17 00:58 95 Room Air 02/21/17 23:52 98.7 75 22 175/95 (121) 96 Physical Exam GENERAL: This is a well-nourished, well-developed patient, in no apparent distress. Patient speaks in clear complete sentences. Patient is pleasant. HEENT: Head is atraumatic and normocephalic. Neck is supple without lymphadenopathy and trachea is midline. No JVD or carotid bruits. CARDIOVASCULAR: Regular rate and rhythm without murmurs, gallops, or rubs. RESPIRATORY: Diffuse expiratory wheezing. No rales or rhonchi. No use assessment muscles. Chest wall is nontender. GASTROINTESTINAL: There is epigastric tenderness. Abdomen is nondistended. Abdomen soft. No obvious pulsatile mass or bruit. No CVA tenderness. Strong femoral pulses bilaterally. Normal bowel sounds in all quadrants. MUSCULOSKELETAL: Patient is moving upper and lower extremities freely. No calf tenderness or edema, no Homans sign. Strong pulses in upper and lower extremities. NEUROLOGICAL: Patient is alert and oriented. Cranial nerves 2-12 are grossly intact. No focal deficits and speech is clear. SKIN: No rash and turgor is normal. Laboratory Laboratory Tests Test 02/22/17 00:02 02/22/17 00:48 02/22/17 02:25 02/22/17 05:07 Urine Color LIGHT-YELLOW Urine Turbidity CLEAR Urine pH 8.0 Urine Specific [place] 1.013 Urine Protein NEG Urine Glucose (UA) NEG Urine Ketones NEG Urine Occult Blood NEG Urine Nitrite NEG Urine Bilirubin NEG Urine Urobilinogen LESS THAN 2.0 Urine Leukocyte Esterase NEG Urine RBC 1 Urine WBC 2 Microscopic Urinalysis Comment CULT NOT INDICATED White Blood Count 3.6 Red Blood Count 3.65 Hemoglobin 11.9 Hematocrit 34.7 Mean Corpuscular Volume 95.1 Mean Corpuscular Hemoglobin 32.7 Mean Corpuscular Hemoglobin Concent 34.3 Red Cell Distribution Width 14.0 Platelet Count 61 Mean Platelet Volume 9.9 Neutrophils (%) (Auto) 67.7 Lymphocytes (%) (Auto) 23.8 Monocytes (%) (Auto) 4.7 Eosinophils (%) (Auto) 3.5 Basophils (%) (Auto) 0.3 Neutrophils # (Auto) 2.5 Lymphocytes # (Auto) 0.9 Monocytes # (Auto) 0.2 Eosinophils # (Auto) 0.1 Basophils # (Auto) 0.0 CBC Comment AUTO DIFF Differential Comment AUTO DIFF CONFIRMED Platelet Estimate LOW Platelet Morphology Comment NORMAL Prothrombin Time 12.2 Prothromb Time International Ratio 1.1 Blood Urea Nitrogen 14 Creatinine 0.58 Random Glucose 204 Total Protein 6.3 Albumin 3.1 Calcium Level 8.0 Magnesium Level 1.9 Alkaline Phosphatase 108 Aspartate Amino Transf (AST/SGOT) 38 Alanine Aminotransferase (ALT/SGPT) 40 Total Bilirubin 0.9 Sodium Level 141 Potassium Level 3.9 Chloride Level 109 Carbon Dioxide Level 25.0 Anion Gap 7 Estimat Glomerular Filtration Rate 107 Troponin I LESS THAN 0.02 LESS THAN 0.02 LESS THAN 0.02 B-Type Natriuretic Peptide 26 Thyroid Stimulating Hormone 3rd Gen 0.944 Total Creatine Kinase 62 55 Date/Time Source Procedure Growth Status 02/22/17 00:44 Blood Peripheral Aerobic Blood Culture Pending Received 02/22/17 00:44 Blood Peripheral Anaerobic Blood Culture Pending Received Result Diagram: 02/22/17 0048 02/22/17 0048 Imaging Last 48 hours Impressions Chest X-Ray 02/22/17 0021 Signed Impressions: Service Date/Time: January 00:35 - CONCLUSION: No acute disease. Serafin Chilel MD Course EKGs have been sinus rhythm without significant ST segment depressions or elevations. Caprini VTE Risk Assessment Caprini VTE Risk Assessment: No/Low Risk (score <= 1) Caprini Risk Assessment Model Point Value = 1 Point Value = 2 Point Value = 3 Point Value = 5 Age 41-60 Minor surgery BMI > 25 kg/m2 Swollen legs Varicose veins or History of unexplained or recurrent spontaneous Oral contraceptives or hormone replacement Sepsis (< 1 month) Serious lung disease, including pneumonia (< 1 month) Abnormal pulmonary function Acute myocardial infarction Congestive heart failure (< 1 month) History of inflammatory bowel disease Medical patient at bed rest Age 61-74 Arthroscopic surgery Major open surgery (> 45 min) Laparoscopic surgery (> 45 min) Malignancy Confined to bed (> 72 hours) Immobilizing plaster cast Central venous access Age >= 75 History of VTE Family history of VTE Factor V Leiden Prothrombin [id number] Lupus anticoagulant Anticardiolipin antibodies Elevated serum homocysteine Heparin-induced thrombocytopenia Other congenital or acquired thrombophilia Stroke (< 1 month) Elective arthroplasty Hip, pelvis, or leg fracture Acute spinal cord injury (< 1 month) Prophylaxis Regimen Total Risk Factor Score Risk Level Prophylaxis Regimen 0-1 Low Early ambulation 2 Moderate Order ONE of the following: *Sequential Compression Device (SCD) *Heparin 5000 units SQ BID 3-4 Higher Order ONE of the following medications: *Heparin 5000 units SQ TID *Enoxaparin/Lovenox 40 mg SQ daily (WT < 150 kg, CrCl > 30 mL/min) *Enoxaparin/Lovenox 30 mg SQ daily (WT < 150 kg, CrCl > 10-29 mL/min) *Enoxaparin/Lovenox 30 mg SQ BID (WT < 150 kg, CrCl > 30 mL/min) AND/OR *Sequential Compression Device (SCD) 5 or more Highest Order ONE of the following medications: *Heparin 5000 units SQ TID (Preferred with Epidurals) *Enoxaparin/Lovenox 40 mg SQ daily (WT < 150 kg, CrCl > 30 mL/min) *Enoxaparin/Lovenox 30 mg SQ daily (WT < 150 kg, CrCl > 10-29 mL/min) *Enoxaparin/Lovenox 30 mg SQ BID (WT < 150 kg, CrCl > 30 mL/min) AND *Sequential Compression Device (SCD) Assessment and Plan Assessment and Plan * COPD: Patient has been short of breath. She is wheezing. We will give DuoNeb 's. Will reevaluate. After first DuoNeb air movement has improved but still wheezing. We'll continue to monitor. Patient will need to continue her medication at home. She needs to quit smoking. * Abdominal pain: There is some epigastric tenderness. No guarding or rebound. States is similar to when she had an ulcer. We will give a GI cocktail. We will get a lipase. If that is normal patient likely will need to follow-up with GI on outpatient basis. * Hypertension: Continue current medication. * Tobacco abuse: Patient has been counseled on importance of smoking cessation. * GERD: Continue current medication. Patient is stable at this time. She is agreeable to this plan. Kendrick Macdnoald Feb 22, 2017 09:16
--- NOTE | 2017-02-22 12:18 | HHI.DCPOC ---
Discharge Care Plan Diagnosis: (1) Abdominal pain (2) COPD (chronic obstructive pulmonary disease) (3) HTN (hypertension) (4) Tobacco abuse (5) GERD (gastroesophageal reflux disease) Goals to Promote Your Health * To prevent worsening of your condition and complications * To maintain your health at the optimal level Directions to Meet Your Goals Take your medications as prescribed Follow your dietary instruction Follow activity as directed Keep your appointments as scheduled Take your immunizations and boosters as scheduled If your symptoms worsen call your PCP, if no PCP go to Urgent Care Center or Emergency Room Smoking is Dangerous to Your Health. Avoid second hand smoke Call the 24-hour hour crisis hotline for domestic abuse at Kendrick Macdonald Feb 22, 2017 12:18
--- NOTE | 2017-02-22 12:18 | HHI.DCPOC ---
Discharge Care Plan Diagnosis: (1) Abdominal pain (2) COPD (chronic obstructive pulmonary disease) (3) HTN (hypertension) (4) Tobacco abuse (5) GERD (gastroesophageal reflux disease) Goals to Promote Your Health * To prevent worsening of your condition and complications * To maintain your health at the optimal level Directions to Meet Your Goals Take your medications as prescribed Follow your dietary instruction Follow activity as directed Keep your appointments as scheduled Take your immunizations and boosters as scheduled If your symptoms worsen call your PCP, if no PCP go to Urgent Care Center or Emergency Room Smoking is Dangerous to Your Health. Avoid second hand smoke Call the 24-hour hour crisis hotline for domestic abuse at Kendrick Macdonald Feb 22, 2017 12:18
--- NOTE | 2017-02-22 12:18 | HHI.DCPOC ---
Discharge Care Plan Diagnosis: (1) Abdominal pain (2) COPD (chronic obstructive pulmonary disease) (3) HTN (hypertension) (4) Tobacco abuse (5) GERD (gastroesophageal reflux disease) Goals to Promote Your Health * To prevent worsening of your condition and complications * To maintain your health at the optimal level Directions to Meet Your Goals Take your medications as prescribed Follow your dietary instruction Follow activity as directed Keep your appointments as scheduled Take your immunizations and boosters as scheduled If your symptoms worsen call your PCP, if no PCP go to Urgent Care Center or Emergency Room Smoking is Dangerous to Your Health. Avoid second hand smoke Call the 24-hour hour crisis hotline for domestic abuse at Kendrick Macdonald Feb 22, 2017 12:18
[2017-02-22] MEDS ORDERED: CETIRIZINE HCL 10 MG TAB PO SCH (21:00)
[2017-02-23] MEDS ORDERED: VENTAER INH (09:25)
--- NOTE | 2017-02-24 12:57 | EKG ---
Date Performed: 02/22/2017 Time Performed: 05:26:28 PTAGE: 56 years EKG: Sinus rhythm NORMAL ECG PREVIOUS TRACING : 02/22/2017 02.27 DOCTOR: Sumit Evans Interpretating Date/Time 02/24/2017 12:56:20
--- NOTE | 2017-02-24 12:57 | EKG ---
Date Performed: 02/22/2017 Time Performed: 05:26:28 PTAGE: 56 years EKG: Sinus rhythm NORMAL ECG PREVIOUS TRACING : 02/22/2017 02.27 DOCTOR: Sumit Evans Interpretating Date/Time 02/24/2017 12:56:20
--- NOTE | 2017-02-24 12:57 | EKG ---
Date Performed: 02/22/2017 Time Performed: 02:27:23 PTAGE: 56 years EKG: Sinus rhythm NORMAL ECG PREVIOUS TRACING : 02/22/2017 00.37 DOCTOR: Sumit Evans Interpretating Date/Time 02/24/2017 12:56:45
--- NOTE | 2017-02-24 12:57 | EKG ---
Date Performed: 02/22/2017 Time Performed: 02:27:23 PTAGE: 56 years EKG: Sinus rhythm NORMAL ECG PREVIOUS TRACING : 02/22/2017 00.37 DOCTOR: Sumit Evans Interpretating Date/Time 02/24/2017 12:56:45
--- NOTE | 2017-02-24 12:57 | EKG ---
Date Performed: 02/22/2017 Time Performed: 02:27:23 PTAGE: 56 years EKG: Sinus rhythm NORMAL ECG PREVIOUS TRACING : 02/22/2017 00.37 DOCTOR: Sumit Evans Interpretating Date/Time 02/24/2017 12:56:45
--- NOTE | 2017-02-24 12:57 | EKG ---
Date Performed: 02/22/2017 Time Performed: 05:26:28 PTAGE: 56 years EKG: Sinus rhythm NORMAL ECG PREVIOUS TRACING : 02/22/2017 02.27 DOCTOR: Sumit Evans Interpretating Date/Time 02/24/2017 12:56:20
--- NOTE | 2017-02-24 13:00 | EKG ---
Date Performed: 02/22/2017 Time Performed: 00:37:47 PTAGE: 56 years EKG: Sinus rhythm NORMAL ECG NO CHANGE PREVIOUS TRACING : 11/04/2016 14.41 DOCTOR: Sumit Evans Interpretating Date/Time 02/24/2017 12:58:04
== END 2017-02-22 15:03 | disposition home or self-care (01) ==
LOC: NEPE 23:47 → NEDA 02-22 02:02 → NEPGCP 02-22 03:33
PROVIDERS: ADMIT Internal Medicine Cardiovascular Disease; ATTEND Internal Medicine Cardiovascular Disease
DX: J44.1 Chronic obstructive pulmonary disease with (acute) exacerbation (principal); K21.9 Gastro-esophageal reflux disease without esophagitis; R10.13 Epigastric pain; F17.210 Nicotine dependence, cigarettes, uncomplicated; F41.9 Anxiety disorder, unspecified; I11.0 Hypertensive heart disease with heart failure; I50.9 Heart failure, unspecified; Z86.73 Personal history of transient ischemic attack (TIA), and cerebral infarction without residual deficits; B19.20 Unspecified viral hepatitis C without hepatic coma; Z71.6 Tobacco abuse counseling; Z79.899 Other long term (current) drug therapy
CPT/HCPCS: 71010; 80053; 81001; 82550; 83690; 83735; 83880; 84443; 84484; 85025; 85610; 87040; 93005; 94640; 94664; 96374; 96375; 96376; 99285; G0378; J2270; J2405

== ENCOUNTER 2017-03-03 00:54 | Emergency (ER) | payer MEDICARE, OTHER ==
[~2017-03-03] VITALS: Ht 162.6 cm; Wt 63.0 kg
[~2017-03-03 00:54] MED LIST changes: -CLIN150C14 PO; -LISI-515 PO; -PRED20 PO; +VENTAER INH
[2017-03-03 01:04] VITALS: BP 184/88; PULSE 90; RESP 18; TEMP 98.7; O2SAT 96
[2017-03-03 01:36] LABS: BACTERIA, URINE RARE /hpf; BLOOD, URINE NEG (NEG); GLUCOSE,URINE 1000 mg/dL (NEG); KETONE, URINE TRACE mg/dL (NEG); NITRITE,URINE NEG (NEG); PH, URINE 6.5 (5.0-8.5); SQUAMOUS EPITHELIAL CELL URINE <1 /hpf (0-5); URINE COLOR YELLOW (YELLW/STRAW)
[2017-03-03 01:37] LABS: COMMENT (UR) CULT NOT INDICATED; CULTURE IF INDICATED CULT NOT INDICATED
[2017-03-03 02:00] VITALS: PULSE 80; RESP 16; O2SAT 96; O2SAT 99
[2017-03-03] MEDS ORDERED: SODIUM CHLOR 0.9% 1000 ML INJ 1,000 ML IV SCH (03:31)
[2017-03-03] MEDS ORDERED: methylPREDNISolone SOD SUCC 125 MG/2 ML VIAL IV PUSH ONE (03:45)
[2017-03-03] MEDS ORDERED: ONDANSETRON HCL 4 MG/2 ML VIAL IV PUSH ONE (03:45)
[2017-03-03] MEDS ORDERED: SODIUM CHLORIDE 0.9% FLUSH 10 ML FLUSH IV FLUSH PRN (03:45)
[2017-03-03] MEDS ORDERED: MORPHINE SULFATE 4 MG/ML INJ IV PUSH ONE (03:45)
[2017-03-03 04:01] LABS: AUTOMATED NEUTROPHIL # 8.2 TH/MM3 (1.8-7.7); BASOPHIL % 0.3 % (0.0-2.0); EOSINOPHIL % 0.2 % (0.0-4.0); HEMATOCRIT 38.3 % (35.0-46.0); LYMPH % 12.1 % (9.0-44.0); LYMPHOCYTE # 1.2 TH/MM3 (1.0-4.8); MEAN CELL VOLUME 96.9 FL (80.0-100.0); MEAN CORPUSCULAR HEMOGLOBIN 32.9 PG (27.0-34.0); MONO % 5.2 % (0.0-8.0); NEUT % 82.2 % (16.0-70.0); PLATELET COUNT 87 TH/MM3 (150-450); RED BLOOD COUNT 3.96 MIL/MM3 (4.00-5.30); RED CELL DISTRIBUTION WIDTH 14.4 % (11.6-17.2)
[2017-03-03] MEDS: RESP: ALBUTEROL 2.5 MG/IPRATROPIUM 0.5 MG NEB (SCH) INH ×3 (04:02→04:15)
[2017-03-03 04:03] LABS: HEMO FLAGS AUTO DIFF
[2017-03-03 04:04] VITALS: O2SAT 98
[2017-03-03 04:17] LABS: ALT (GPT) 42 U/L (10-53)
[2017-03-03 04:21] LABS: ALKALINE PHOSPHATASE 111 U/L (45-117); TOTAL BILIRUBIN ADULT 0.7 MG/DL (0.2-1.0)
--- NOTE | 2017-03-03 04:24 | RADRPT ---
EXAM DATE/TIME: 03/03/2017 03:45 [facility] COMPARISON: CT ABDOMEN & PELVIS W/O CONTRAST, September 30, 2014, 16:01. INDICATIONS : Right side abdominal pain. ORAL CONTRAST: No oral contrast ingested. RADIATION DOSE: 6.64 CTDIvol (mGy) MEDICAL HISTORY : Cardiovascular disease. Gastroesophageal reflux disease. Renal calculi.COPD. Seizures. Hep c. SURGICAL HISTORY : Cholecystectomy. Hysterectomy.Mastectomy. ENCOUNTER: Initial ACUITY: 3 weeks PAIN SCALE: 9/10 LOCATION: Right abdomen. TECHNIQUE: Volumetric scanning of the abdomen and pelvis was performed. Using automated exposure control and ad justment of the mA and/or kV according to patient size, radiation dose was kept as low as reasonably achievable to obtain optimal diagnostic quality images. DICOM format image data is available electro nically for review and comparison. FINDINGS: LOWER LUNGS: The visualized lower lungs are clear. LIVER: Diffusely nodular contour of liver capsule and hypertrophy of the left lobe suggesting cirrhosis. No focal mass identified. Cholecystectomy clips noted. SPLEEN: Enlarged measuring 13.8 cm in craniocaudal dimension. PANCREAS: Within normal limits. KIDNEYS: Punctate 2 mm right upper pole calculus. No evidence of hydronephrosis. Varices noted anterior to the right kidney. ADRENAL GLANDS: Within normal limits. VASCULAR: There is no aortic aneurysm. BOWEL/MESENTERY: Scattered colonic diverticula but no evidence of acute diverticulitis. Appendix within normal limits. No free air or free fluid. ABDOMINAL WALL: Within normal limits. RETROPERITONEUM: There is no lymphadenopathy. BLADDER: No wall thickening or mass. REPRODUCTIVE: Within normal limits. INGUINAL: There is no lymphadenopathy or hernia. MUSCULOSKELETAL: Prominent degenerative findings lower lumbar spine. CONCLUSION: 1. Cirrhosis. 2. Evidence of portal venous hypertension with varices anterior to the right kidney and splenomegaly. 3. Punctate nonobstructing right upper pole renal calculus. Hosea Rivas MD on March 03, 2017 at 4:15 Board Certified Radiologist. This report was verified electronically.
[2017-03-03 04:29] LABS: ANION GAP 8 MEQ/L (5-15); AST (GOT) 60 U/L (15-37); BICARBONATE 23.3 MEQ/L (21.0-32.0); BLOOD UREA NITROGEN 14 MG/DL (7-18); CHLORIDE 109 MEQ/L (98-107); GLOMERULAR FILTRATION RATE 90 ML/MIN (>89); POTASSIUM 4.9 MEQ/L (3.5-5.1); SODIUM (NA) 140 MEQ/L (136-145)
[2017-03-03 04:35] LABS: APTT (PATIENT) 23.8 SEC (24.3-30.1); INTERNATIONAL NORMALIZED RATIO 1.1 RATIO
[2017-03-03 04:51] LABS: PLATELET ESTIMATE SMEAR LOW (NORMAL); PLATELET MORPHOLOGY NORMAL (NORMAL); SCAN/DIFF AUTO DIFF CONFIRMED
[2017-03-03] MEDS ORDERED: ALUMINUM/MAGNESIUM/SIMETH 30 ML CUP PO ONE (05:15)
[2017-03-03 05:23] VITALS: BP 150/87; PULSE 80; RESP 16; O2SAT 96
[2017-03-03] MEDS ORDERED: LIDOCAINE VISCOUS 2% SOLN 15 ML UDC PO ONE (05:30)
[2017-03-03] MEDS ORDERED: PRED-503 PO (06:07)
[2017-03-03] MEDS ORDERED: MAAL10003 CHEW (06:07)
[2017-03-03] MEDS ORDERED: VENTAER INH (06:07)
--- NOTE | 2017-03-03 06:08 | PD ---
HPI Chief Complaint: Abdominal pain Time Seen by Provider: 02:47 Travel History International Travel<30 days: No Contact w/Intl Traveler<30days: No Traveled to known affect area: No History of Present Illness HPI 56yo F with PMH of cervical CA s/p hysterectomy, hep C, Cirrhosis here with abdominal pain today. Associated with nausea and diarrhea. Pt also has COPD and some wheezing. Denies any fever, chest pain, sob, focal weakness or numbness. PFSH Past Medical History Asthma: Yes Blood Disorders: No Anxiety: Yes Depression: No Heart Rhythm Problems: No Cancer: Yes (2002) Cardiovascular Problems: Yes (CHF, HTN) High Cholesterol: No Chemotherapy: Yes (2002) Chest Pain: Yes Congestive Heart Failure: Yes COPD: Yes Cerebrovascular Accident: Yes (2010 thinks has had about 2-3) Coronary Artery Disease: No Diabetes: No Diminished Hearing: No Endocrine: Yes Gastrointestinal Disorders: Yes (Ibs, colitis) GERD: Yes Genitourinary: No Hepatitis: Yes (HEPATITIS C) Hiatal Hernia: No Hypertension: Yes Immune Disorder: Yes (HEP C FROM BLOOD TRANSFUSION 1974 ) Implanted Vascular Access Dvce: No Kidney Stones: Yes Musculoskeletal: Yes (back) Neurologic: Yes (seizures, encephalopathy) Psychiatric: Yes Reproductive: No Respiratory: Yes (COPD) Immunizations Current: Yes Migraines: Yes Radiation Therapy: No Renal Failure: No Seizures: Yes Sleep Apnea: No Thyroid Disease: Yes (HYPER (GRAVES)) Ulcer: No Menopausal: Yes : 8 Para: 5 Miscarriage: 3 Past Surgical History Abdominal Surgery: Yes Arteriovenous Shunt: No Body Medical Devices: steel plate in neck, hernia mesh Cardiac Surgery: No Section: Yes (2) Cholecystectomy: Yes Ear Surgery: No Endocrine Surgery: No Eye Surgery: No Genitourinary Surgery: No Gynecologic Surgery: Yes Hysterectomy: Yes Insulin Pump: No Joint Replacement: No Neurologic Surgery: No Oral Surgery: No Pacemaker: No Thoracic Surgery: No Other Surgery: Yes (PLATE PLACED IN NECK WITH CERVIAL FUSION) Social History Alcohol Use: No Tobacco Use: Yes (1-2 cigs a day) Substance Use: No Allergies-Medications (Allergen,Severity, Reaction): Coded Allergies: ciprofloxacin (Verified Allergy, Severe, HIVES, THROAT SWELLING AND DIARRHEA, 03/03/17) diatrizoate meglumine (Verified Allergy, Severe, 03/03/17) gadobenic acid (Verified Allergy, Severe, 03/03/17) gadodiamide (Verified Allergy, Severe, 03/03/17) gadoteridol (Verified Allergy, Severe, 03/03/17) iodine (Verified Allergy, Severe, HIVES, THROAT SWELLING, 03/03/17) iodixanol (Verified Allergy, Severe, 03/03/17) iohexol (Verified Allergy, Severe, 03/03/17) ketorolac (Verified Allergy, Severe, HIVES AND THROAT SWELLING, 03/03/17) lisinopril (Verified Allergy, Severe, tongue / throat swelling, 03/03/17) penicillin G (Verified Allergy, Severe, HIVES, THROAT SWELLING, 03/03/17) potassium iodide (Verified Allergy, Severe, HIVES, THROAT SWELLING, ) povidone-iodine (Verified Allergy, Severe, HIVES, THROAT SWELLING, 03/03/17 ) sodium iodide (Verified Allergy, Severe, HIVES, THROAT SWELLING, 03/03/17) sodium iodide (Verified Allergy, Severe, HIVES, THROAT SWELLING, 03/03/17) estradiol (Verified Allergy, Intermediate, hives, 03/03/17) estrogens, conjugated (Verified Allergy, Intermediate, hives, 03/03/17) Reported Meds & Prescriptions Reported Meds & Active Scripts Active Ventolin Hfa 18 GM Inh (Albuterol Sulfate) 90 Mcg/Act Aer 2 Puff INH Q4H PRN Maalox Advanced Maximum Strength (Calcium Carbonate-Simethicone) 1,000-60 Mg Chew 1 Tab CHEW BID PRN 5 Days Deltasone (Prednisone) 20 Mg Tab 20 Mg PO BID 5 Days Ventolin Hfa 18 GM Inh (Albuterol Sulfate) 90 Mcg/Act Aer 2-3 Puff INH Q4H PRN Zofran Odt (Ondansetron Odt) 4 Mg Tab 4 Mg SL Q6HR PRN Singulair (Montelukast Sodium) 10 Mg Tab 10 Mg PO HS Reported [creon] Xifaxan (Rifaximin) 550 Mg Tab 550 Mg PO DAILY Zyrtec (Cetirizine HCl) 10 Mg Tablet 1 Tab PO BID Omeprazole 40 Mg Cap 40 Mg PO DAILY Propranolol (Propranolol HCl) 20 Mg Tab 20 Mg PO DAILY Review of Systems Except as stated in HPI: all other systems reviewed are Neg Physical Exam Narrative GENERAL: 56yo F in mild distress. SKIN: Focused skin assessment warm/dry. HEAD: Atraumatic. Normocephalic. EYES: Pupils equal and round. No scleral icterus. No injection or drainage. ENT: No nasal bleeding or discharge. Mucous membranes pink and moist. NECK: Trachea midline. No JVD. CARDIOVASCULAR: Regular rate and rhythm. No murmur appreciated. RESPIRATORY: Expiratory wheezing bilaterally. O2 sat is 97% on RA. GASTROINTESTINAL: Abdomen soft, Diffuse ttp. No rebound tenderness or guarding. MUSCULOSKELETAL: No obvious deformities. No clubbing. No cyanosis. No edema. NEUROLOGICAL: Awake and alert. No obvious cranial nerve deficits. Motor grossly within normal limits. Normal speech. PSYCHIATRIC: Appropriate mood and affect; insight and judgment normal. Data Data Last Documented VS Vital Signs Date Time Temp Pulse Resp B/P (MAP) Pulse Ox O2 Delivery O2 Flow Rate FiO2 03/03/17 05:54 03/03/17 05:23 80 16 96 Room Air 03/03/17 04:04 21 03/03/17 01:04 98.7 Orders Orders Urinalysis - C+S If Indicated (03/03/17 01:10) Complete Blood Count With Diff (03/03/17 03:31) Comprehensive Metabolic Panel (03/03/17 03:31) Lipase (03/03/17 03:31) Prothrombin Time / Inr (Pt) (03/03/17 03:31) Act Partial Throm Time (Ptt) (03/03/17 03:31) Iv Access Insert/Monitor (03/03/17 03:31) Ecg Monitoring (03/03/17 03:31) Oximetry (03/03/17 03:31) Morphine Inj (Morphine Inj) (03/03/17 03:45) Sodium Chlor 0.9% 1000 Ml Inj (Ns 1000 M (03/03/17 03:31) Sodium Chloride 0.9% Flush (Ns Flush) (03/03/17 03:45) Electrocardiogram (03/03/17 03:31) Ct Abd/Pel W/O Iv Contrast (03/03/17 ) Troponin I (03/03/17 03:31) Ondansetron Inj (Zofran Inj) (03/03/17 03:45) Methylprednisolone So Succ Inj (Solumedr (03/03/17 03:45) Albuterol-Ipratropium Neb (Duoneb Neb) (03/03/17 03:45) Al-Mag Hy-Si 40-40-4 Mg/Ml Liq (Mag-Al P (03/03/17 05:15) Lidocaine 2% Viscous (Xylocaine 2% Visco (03/03/17 05:30) Ed Discharge Order (03/03/17 06:08) Labs Laboratory Tests Test 03/03/17 01:13 03/03/17 03:45 Urine Color YELLOW Urine Turbidity HAZY Urine pH 6.5 Urine Specific [place] 1.028 Urine Protein TRACE mg/dL Urine Glucose (UA) 1000 mg/dL Urine Ketones TRACE mg/dL Urine Occult Blood NEG Urine Nitrite NEG Urine Bilirubin NEG Urine Urobilinogen 8.0 MG/DL Urine Leukocyte Esterase NEG Urine RBC 3 /hpf Urine WBC 2 /hpf Urine Squamous Epithelial Cells <1 /hpf Urine Amorphous Sediment FEW Urine Bacteria RARE /hpf Microscopic Urinalysis Comment CULT NOT INDICATED White Blood Count 10.0 TH/MM3 Red Blood Count 3.96 MIL/MM3 Hemoglobin 13.0 GM/DL Hematocrit 38.3 % Mean Corpuscular Volume 96.9 FL Mean Corpuscular Hemoglobin 32.9 PG Mean Corpuscular Hemoglobin Concent 34.0 % Red Cell Distribution Width 14.4 % Platelet Count 87 TH/MM3 Mean Platelet Volume 10.5 FL Neutrophils (%) (Auto) 82.2 % Lymphocytes (%) (Auto) 12.1 % Monocytes (%) (Auto) 5.2 % Eosinophils (%) (Auto) 0.2 % Basophils (%) (Auto) 0.3 % Neutrophils # (Auto) 8.2 TH/MM3 Lymphocytes # (Auto) 1.2 TH/MM3 Monocytes # (Auto) 0.5 TH/MM3 Eosinophils # (Auto) 0.0 TH/MM3 Basophils # (Auto) 0.0 TH/MM3 CBC Comment AUTO DIFF Differential Comment AUTO DIFF CONFIRMED Platelet Estimate LOW Platelet Morphology Comment NORMAL Red Cell Morphology Comment NORMAL Prothrombin Time 12.0 SEC Prothromb Time International Ratio 1.1 RATIO Activated Partial Thromboplast Time 23.8 SEC Blood Urea Nitrogen 14 MG/DL Creatinine 0.67 MG/DL Random Glucose 213 MG/DL Total Protein 7.1 GM/DL Albumin 3.6 GM/DL Calcium Level 8.7 MG/DL Alkaline Phosphatase 111 U/L Aspartate Amino Transf (AST/SGOT) 60 U/L Alanine Aminotransferase (ALT/SGPT) 42 U/L Total Bilirubin 0.7 MG/DL Sodium Level 140 MEQ/L Potassium Level 4.9 MEQ/L Chloride Level 109 MEQ/L Carbon Dioxide Level 23.3 MEQ/L Anion Gap 8 MEQ/L Estimat Glomerular Filtration Rate 90 ML/MIN Troponin I LESS THAN 0.02 NG/ML Lipase 133 U/L MDM Medical Decision Making Medical Screen Exam Complete: Yes Emergency Medical Condition: Yes Interpretation(s) EKG: NSR 78bpm. Normal axis. No ST segment elevation or depression. Differential Diagnosis Pancreatitis vs. colitis vs. UTI vs. COPD exacerbation Narrative Course 56yo F with nausea, abdominal pain that is diffuse. Pt given zofran and morphine. Pt also given methylprednisolone and duonebs x3 because she has COPD and is wheezing on exam. Pt states that she feels better after the treatments. Labs reviewed, no leukocytosis. Troponin negative. Lipase normal. Glucose elevated at 213. No increased anion gap. UA showed no leukocyte. CT a/p showed cirrhosis. punctate nonobstructing right upper pole renal calculus. Pt reevaluated at bedside and still with pain and said last time they gave her liquid medication which helped. Pt given viscus lidocaine and maalox with improvement of pain. Return precautions given. Diagnosis Primary Impression: Abdominal pain Qualified Codes: R10.9 - Unspecified abdominal pain Patient Instructions: General Instructions Departure Forms: Tests/Procedures Additional Instructions: Please return to the ED if your symptoms worsen. Please follow up with your PMD in 3-7 days. Med/Other Pt SpecificInfo: Prescription(s) given Scripts Albuterol 18 GM Inh (Ventolin Hfa 18 GM Inh) 90 Mcg/Act Aer 2 PUFF INH Q4H Y for SHORTNESS OF BREATH, #1 INHALER 0 Refills Prov: Leslie Enriquez DO 03/03/17 Calcium Carbonate-Simethicone (Maalox Advanced Maximum Strength) 1,000-60 Mg Chew 1 TAB CHEW BID Y for INDIGESTION OR UPSET STOMACH for 5 Days, #10 TAB 0 Refills Prov: Leslie Enriquez DO 03/03/17 Prednisone (Deltasone) 20 Mg Tab 20 MG PO BID for 5 Days, #10 TAB 0 Refills Prov: Leslie Enriquez DO 03/03/17 Disposition: 01 DISCHARGE HOME Condition: Stable Leslie Enriquez DO Mar 03, 2017 06:07
--- NOTE | 2017-03-04 09:02 | EKG ---
Date Performed: 03/03/2017 Time Performed: 04:06:38 PTAGE: 56 years EKG: Sinus rhythm MINIMAL VOLTAGE CRITERIA FOR LVH, CONSIDER NORMAL VARIANT Compared to prior tracing no significant c hange BORDERLINE ECG PREVIOUS TRACING : 02/22/17 @ 0526 DOCTOR: Chavo Mendez Interpretating Date/Time 03/04/2017 09:01:28
== END 2017-03-03 06:50 | disposition home or self-care (01) ==
LOC: NEPE 00:54
DX: N20.0 Calculus of kidney (principal); K74.60 Unspecified cirrhosis of liver; J44.9 Chronic obstructive pulmonary disease, unspecified; R06.2 Wheezing; I50.9 Heart failure, unspecified; I11.0 Hypertensive heart disease with heart failure; B19.20 Unspecified viral hepatitis C without hepatic coma; Z86.73 Personal history of transient ischemic attack (TIA), and cerebral infarction without residual deficits; Z85.41 Personal history of malignant neoplasm of cervix uteri; Z72.0 Tobacco use
CPT/HCPCS: 74176; 80053; 81001; 83690; 84484; 85025; 85610; 85730; 93005; 94640; 94664; 96361; 96374; 96375; 99285; J2270; J2405; J2930; J7030

== ENCOUNTER 2017-03-14 09:35 | Emergency (ER) | payer MEDICARE, OTHER ==
[~2017-03-14] VITALS: Ht 162.6 cm; Wt 64.0 kg
[~2017-03-14 09:35] MED LIST changes: +MAAL10003 CHEW; +PRED-503 PO
[2017-03-14 09:41] VITALS: BP 123/74; PULSE 73; RESP 20; TEMP 98.5; O2SAT 97
[2017-03-14] MEDS ORDERED: CREON6 PO (09:56)
--- NOTE | 2017-03-14 10:38 | PD ---
HPI Chief Complaint: Respiratory Symptoms Time Seen by Provider: 09:53 Travel History International Travel<30 days: No Contact w/Intl Traveler<30days: No Traveled to known affect area: No History of Present Illness HPI Patient is a 56-year-old female smoker presents emergency department with cough and intermittent shortness of breath for the past 3-4 weeks. Patient states that her symptoms been ongoing on for the past 3 or 4 days but records show that she was here earlier this month for the same thing. When asked the patient states it has been going on for that long. Does not have a primary care physician and to started a new job was not been allowed to miss work yet. She has been followed by design printing machine setter the past. She's been taking her albuterol and nebulizers at home with some relief but she is not able take her nebulizers at work. States she's been on prednisone antibiotics and nothing seems to be working. Denies any chest pain denies any history of stasis blood clots in legs or chest. PFSH Past Medical History Asthma: Yes Blood Disorders: No Anxiety: Yes Depression: No Heart Rhythm Problems: No Cancer: Yes (2002) Cardiovascular Problems: Yes High Cholesterol: No Chemotherapy: Yes (2002) Chest Pain: Yes Congestive Heart Failure: Yes COPD: Yes Cerebrovascular Accident: Yes (2010 thinks has had about 2-3) Coronary Artery Disease: No Diabetes: No Diminished Hearing: No Endocrine: Yes Gastrointestinal Disorders: Yes (Ibs, colitis) GERD: Yes Genitourinary: No Hepatitis: Yes (HEPATITIS C) Hiatal Hernia: No Hypertension: Yes Immune Disorder: Yes (HEP C FROM BLOOD TRANSFUSION 1974 ) Implanted Vascular Access Dvce: No Kidney Stones: Yes Musculoskeletal: Yes (back) Neurologic: Yes (seizures, encephalopathy) Psychiatric: Yes Reproductive: No Respiratory: Yes Immunizations Current: Yes Migraines: Yes Radiation Therapy: No Renal Failure: No Seizures: Yes Sleep Apnea: No Thyroid Disease: Yes (HYPER (GRAVES)) Ulcer: No Tetanus Vaccination: < 5 Years Influenza Vaccination: Yes Menopausal: Yes : 8 Para: 5 Miscarriage: 3 Past Surgical History Abdominal Surgery: Yes Arteriovenous Shunt: No Body Medical Devices: steel plate in neck, hernia mesh Cardiac Surgery: No Section: Yes (2) Cholecystectomy: Yes Ear Surgery: No Endocrine Surgery: No Eye Surgery: No Genitourinary Surgery: No Gynecologic Surgery: Yes Hysterectomy: Yes Insulin Pump: No Joint Replacement: No Neurologic Surgery: No Oral Surgery: No Pacemaker: No Thoracic Surgery: No Other Surgery: Yes (PLATE PLACED IN NECK WITH CERVIAL FUSION) Social History Alcohol Use: No Tobacco Use: Yes (1-2 cigs a day) Substance Use: No Allergies-Medications (Allergen,Severity, Reaction): Coded Allergies: ciprofloxacin (Verified Allergy, Severe, HIVES, THROAT SWELLING AND DIARRHEA, 03/03/17) diatrizoate meglumine (Verified Allergy, Severe, SWOLLEN, 03/14/17) gadobenic acid (Verified Allergy, Severe, Swelling, 03/14/17) gadodiamide (Verified Allergy, Severe, Swelling, 03/14/17) gadoteridol (Verified Allergy, Severe, Swelling, 03/14/17) iodine (Verified Allergy, Severe, HIVES, THROAT SWELLING, 03/03/17) iodixanol (Verified Allergy, Severe, SWELLIN, 03/14/17) iohexol (Verified Allergy, Severe, Swelling, 03/14/17) ketorolac (Verified Allergy, Severe, HIVES AND THROAT SWELLING, 03/03/17) lisinopril (Verified Allergy, Severe, tongue / throat swelling, 03/03/17) penicillin G (Verified Allergy, Severe, HIVES, THROAT SWELLING, 03/03/17) potassium iodide (Verified Allergy, Severe, HIVES, THROAT SWELLING, ) povidone-iodine (Verified Allergy, Severe, HIVES, THROAT SWELLING, 03/03/17 ) sodium iodide (Verified Allergy, Severe, HIVES, THROAT SWELLING, 03/03/17) sodium iodide (Verified Allergy, Severe, HIVES, THROAT SWELLING, 03/03/17) estradiol (Verified Allergy, Intermediate, hives, 03/03/17) estrogens, conjugated (Verified Allergy, Intermediate, hives, 03/03/17) Reported Meds & Prescriptions Reported Meds & Active Scripts Active Ventolin Hfa 18 GM Inh (Albuterol Sulfate) 90 Mcg/Act Aer 2 Puff INH Q4H PRN Ventolin Hfa 18 GM Inh (Albuterol Sulfate) 90 Mcg/Act Aer 2-3 Puff INH Q4H PRN Zofran Odt (Ondansetron Odt) 4 Mg Tab 4 Mg SL Q6HR PRN Singulair (Montelukast Sodium) 10 Mg Tab 10 Mg PO HS Reported Creon (Amylase/Lipase/Protease) 6,000-19,000-30,000 Units Cap 1 Cap PO TIDPC Xifaxan (Rifaximin) 550 Mg Tab 550 Mg PO DAILY Zyrtec (Cetirizine HCl) 10 Mg Tablet 1 Tab PO BID Omeprazole 40 Mg Cap 40 Mg PO DAILY Propranolol (Propranolol HCl) 20 Mg Tab 20 Mg PO DAILY Physical Exam Narrative GENERAL: Well-developed well-nourished no obvious distress. SKIN: Focused skin assessment warm/dry. HEAD: Atraumatic. Normocephalic. EYES: Pupils equal and round. No scleral icterus. No injection or drainage. ENT: No nasal bleeding or discharge. Mucous membranes pink and moist. NECK: Trachea midline. No JVD. CARDIOVASCULAR: Regular rate and rhythm. No murmur appreciated. RESPIRATORY: No accessory muscle use. Clear to auscultation. Breath sounds equal bilaterally. No increased work of breathing. No wheezes rales or rhonchi. GASTROINTESTINAL: Abdomen soft, non-tender, nondistended. Hepatic and splenic margins not palpable. MUSCULOSKELETAL: No obvious deformities. No clubbing. No cyanosis. No edema. NEUROLOGICAL: Awake and alert. No obvious cranial nerve deficits. Motor grossly within normal limits. Normal speech. PSYCHIATRIC: Appropriate mood and affect; insight and judgment normal. Data Data Last Documented VS Orders Orders Chest, Pa & Lat (03/14/17 ) Resp Request For Service (03/14/17 ) Ed Discharge Order (03/14/17 11:15) MDM Medical Decision Making Medical Screen Exam Complete: Yes Emergency Medical Condition: Yes Differential Diagnosis Bronchitis, pneumonia, asthma, COPD. Narrative Course Patient roomed in emergency department, appears well in no obvious distress. No indication for repeat steroids or antibiotics, recommended that she follow- up with a design printing machine setter at her earliest convenience for pulmonary function testing. She is saturating well in no respiratory distress. No indication further workup. She stable for discharge Diagnosis Primary Impression: Bronchitis Referrals: Jennifer Childress MD Med/Other Pt SpecificInfo: Prescription(s) given Scripts Albuterol 18 GM Inh (Ventolin Hfa 18 GM Inh) 90 Mcg/Act Aer 2 PUFF INH Q4H Y for SHORTNESS OF BREATH, #1 INHALER 1 Refill Prov: Mateus Ornelas MD 03/14/17 Disposition: 01 DISCHARGE HOME Condition: Stable Mateus Ornelas MD Mar 14, 2017 10:38
--- NOTE | 2017-03-14 11:07 | RADRPT ---
EXAM DATE/TIME: 03/14/2017 10:48 [facility] COMPARISON: CHEST PA & LAT, January 13, 2017, 15:18. INDICATIONS : Cough. Patient complains of chest pain, shortness of breath. She states she had an asthma attack. MEDICAL HISTORY : Asthma.Cardiovascular disease. Gastroesophageal reflux disease. Renal calculi.COPD. Seizures SURGICAL HISTORY : Cholecystectomy. Hysterectomy.Mastectomy. ENCOUNTER: Initial ACUITY: 1 day PAIN SCORE: 8/10 LOCATION: Bilateral chest FINDINGS: PA and lateral views of the chest demonstrate the lungs to be symmetrically aerated without evidence of mass, infiltrate or effusion. The cardiomediastinal contours are unremarkable. Osseous structure s are intact. CONCLUSION: No acute disease. Dionicio Falk MD FACR on March 14, 2017 at 11:05 Board Certified Radiologist. This report was verified electronically.
[2017-03-14] MEDS ORDERED: VENTAER INH (11:14)
[2017-03-14 11:18] VITALS: BP 124/78; TEMP 97.8
== END 2017-03-14 11:29 | disposition home or self-care (01) ==
LOC: NEPE 09:35
DX: J40 Bronchitis, not specified as acute or chronic (principal); J44.9 Chronic obstructive pulmonary disease, unspecified; F41.9 Anxiety disorder, unspecified; I10 Essential (primary) hypertension; K21.9 Gastro-esophageal reflux disease without esophagitis; B19.20 Unspecified viral hepatitis C without hepatic coma
CPT/HCPCS: 71020; 94664; 99283

== ENCOUNTER 2017-03-29 13:52 | Emergency (ER) | payer MEDICARE, OTHER ==
[~2017-03-29 13:52] MED LIST changes: +CREON6 PO; -MAAL10003 CHEW; -PRED-503 PO; -creon
[2017-03-29 13:56] VITALS: BP 211/93; PULSE 99; RESP 18; TEMP 99; O2SAT 98
--- NOTE | 2017-03-29 14:07 | PD ---
HPI Chief Complaint: Flank/Kidney Pain Time Seen by Provider: 14:07 Travel History International Travel<30 days: No Contact w/Intl Traveler<30days: No Traveled to known affect area: No History of Present Illness HPI 56-year-old female came to the emergency room with history of left flank pain radiating down to her left lower quadrant. Patient says this feels like her kidney stone which she has had in the past. Patient says she's been getting some chills and urinary frequency. Patient was hypertensive upon arrival. She is awake and answering questions appropriately. Denies any nausea vomiting. No aggravating or relieving factors. The pain started last night. PFSH Past Medical History Narrative Medical List of her past medical, surgical, social and family history is reviewed from the nursing note. Asthma: Yes Blood Disorders: No Anxiety: Yes Depression: No Heart Rhythm Problems: No Cancer: Yes (2002) Cardiovascular Problems: Yes High Cholesterol: No Chemotherapy: Yes (2002) Chest Pain: Yes Congestive Heart Failure: Yes COPD: Yes Cerebrovascular Accident: Yes (2011 thinks has had about 2-3) Coronary Artery Disease: No Diabetes: No Diminished Hearing: No Endocrine: Yes Gastrointestinal Disorders: Yes (Ibs, colitis) GERD: Yes Genitourinary: No Hepatitis: Yes (HEPATITIS C) Hiatal Hernia: No Hypertension: Yes Immune Disorder: Yes (HEP C FROM BLOOD TRANSFUSION 1974 ) Implanted Vascular Access Dvce: No Kidney Stones: Yes Musculoskeletal: Yes (back) Neurologic: Yes (seizures, encephalopathy) Psychiatric: Yes Reproductive: No Respiratory: Yes Immunizations Current: Yes Migraines: Yes Radiation Therapy: No Renal Failure: No Seizures: Yes Sleep Apnea: No Thyroid Disease: Yes (HYPER (GRAVES)) Ulcer: No Menopausal: Yes : 8 Para: 5 Miscarriage: 3 Past Surgical History Abdominal Surgery: Yes Arteriovenous Shunt: No Body Medical Devices: steel plate in neck, hernia mesh Cardiac Surgery: No Section: Yes (2) Cholecystectomy: Yes Ear Surgery: No Endocrine Surgery: No Eye Surgery: No Genitourinary Surgery: No Gynecologic Surgery: Yes Hysterectomy: Yes Insulin Pump: No Joint Replacement: No Neurologic Surgery: No Oral Surgery: No Pacemaker: No Thoracic Surgery: No Other Surgery: Yes (PLATE PLACED IN NECK WITH CERVIAL FUSION) Social History Alcohol Use: No Tobacco Use: Yes (1-2 cigs a day) Substance Use: No Allergies-Medications (Allergen,Severity, Reaction): Coded Allergies: ciprofloxacin (Verified Allergy, Severe, HIVES, THROAT SWELLING AND DIARRHEA, 04/02/17) diatrizoate meglumine (Verified Allergy, Severe, SWOLLEN, 04/02/17) gadobenic acid (Verified Allergy, Severe, Swelling, 04/02/17) gadodiamide (Verified Allergy, Severe, Swelling, 04/02/17) gadoteridol (Verified Allergy, Severe, Swelling, 04/02/17) iodine (Verified Allergy, Severe, HIVES, THROAT SWELLING, 04/02/17) iodixanol (Verified Allergy, Severe, SWELLIN, 04/02/17) iohexol (Verified Allergy, Severe, Swelling, 04/02/17) ketorolac (Verified Allergy, Severe, HIVES AND THROAT SWELLING, 04/02/17) lisinopril (Verified Allergy, Severe, tongue / throat swelling, 04/02/17) penicillin G (Verified Allergy, Severe, HIVES, THROAT SWELLING, 04/02/17) potassium iodide (Verified Allergy, Severe, HIVES, THROAT SWELLING, ) povidone-iodine (Verified Allergy, Severe, HIVES, THROAT SWELLING, 04/02/17 ) sodium iodide (Verified Allergy, Severe, HIVES, THROAT SWELLING, 04/02/17) sodium iodide (Verified Allergy, Severe, HIVES, THROAT SWELLING, 04/02/17) estradiol (Verified Allergy, Intermediate, hives, 04/02/17) estrogens, conjugated (Verified Allergy, Intermediate, hives, 04/02/17) Comments List of her allergies reviewed from the nursing note. Reported Meds & Prescriptions Reported Meds & Active Scripts Active Ventolin Hfa 18 GM Inh (Albuterol Sulfate) 90 Mcg/Act Aer 2 Puff INH Q4-6H PRN Symbicort Inh (Budesonide/Formoterol Fumarate) 160-4.5 Mcg/Act Aero 1 Puff INH Q12HR Hydrocodone-Homatropine Liq 5-1.5 Mg/5 Ml Syrp 5 Ml PO Q6HR PRN Prednisone 50 Mg Tab 50 Mg PO DAILY Albuterol Neb (Albuterol Sulfate) 2.5 Mg/3 Ml Neb 2.5 Mg NEB Q4HR NEB PRN Azithromycin 250 Mg Tab 250 Mg PO DAILY Flomax (Tamsulosin HCl) 0.4 Mg Cap 0.4 Mg PO HS Zofran Odt (Ondansetron Odt) 4 Mg Tab 4 Mg SL Q6HR PRN Singulair (Montelukast Sodium) 10 Mg Tab 10 Mg PO HS Reported Creon (Amylase/Lipase/Protease) 6,000-19,000-30,000 Units Cap 1 Cap PO TIDPC Xifaxan (Rifaximin) 550 Mg Tab 550 Mg PO DAILY Zyrtec (Cetirizine HCl) 10 Mg Tablet 1 Tab PO BID Omeprazole 40 Mg Cap 40 Mg PO DAILY Propranolol (Propranolol HCl) 20 Mg Tab 20 Mg PO DAILY Narrative Medication List of her home medications reviewed from the nursing note. Review of Systems Except as stated in HPI: all other systems reviewed are Neg Genitourinary: Positive: Frequency, Flank Pain Physical Exam Narrative GENERAL: Awake, alert, moderate distress SKIN: Focused skin assessment warm/dry. HEAD: Atraumatic. Normocephalic. EYES: Pupils equal and round. No scleral icterus. No injection or drainage. ENT: No nasal bleeding or discharge. Mucous membranes pink and moist. NECK: Trachea midline. No JVD. CARDIOVASCULAR: Regular rate and rhythm. No murmur appreciated. RESPIRATORY: No accessory muscle use. Clear to auscultation. Breath sounds equal bilaterally. GASTROINTESTINAL: Abdomen soft, non-tender, nondistended. Hepatic and splenic margins not palpable. MUSCULOSKELETAL: No obvious deformities. No clubbing. No cyanosis. No edema. NEUROLOGICAL: Awake and alert. No obvious cranial nerve deficits. Motor grossly within normal limits. Normal speech. PSYCHIATRIC: Appropriate mood and affect; insight and judgment normal. Data Data Last Documented VS Orders Orders Complete Blood Count With Diff (03/29/17 14:27) Basic Metabolic Panel (Bmp) (03/29/17 14:27) Urinalysis - C+S If Indicated (03/29/17 14:27) Ecg Monitoring (03/29/17 14:27) Iv Access Insert/Monitor (03/29/17 14:27) Morphine Inj (Morphine Inj) (03/29/17 14:30) Sodium Chloride 0.9% Flush (Ns Flush) (03/29/17 14:30) Ct Abd/Pel W/O Iv Contrast (03/29/17 ) Tamsulosin (Flomax) (03/29/17 15:45) Sodium Chlor 0.9% 1000 Ml Inj (Ns 1000 M (03/29/17 15:45) Morphine Inj (Morphine Inj) (03/29/17 15:45) Ed Discharge Order (03/29/17 15:49) Morphine Inj (Morphine Inj) (03/29/17 17:30) Labs Laboratory Tests Test 03/29/17 14:25 White Blood Count 6.9 TH/MM3 Red Blood Count 4.10 MIL/MM3 Hemoglobin 13.4 GM/DL Hematocrit 38.1 % Mean Corpuscular Volume 92.8 FL Mean Corpuscular Hemoglobin 32.7 PG Mean Corpuscular Hemoglobin Concent 35.3 % Red Cell Distribution Width 14.1 % Platelet Count 108 TH/MM3 Mean Platelet Volume 10.4 FL Neutrophils (%) (Auto) 56.1 % Lymphocytes (%) (Auto) 32.0 % Monocytes (%) (Auto) 8.0 % Eosinophils (%) (Auto) 3.2 % Basophils (%) (Auto) 0.7 % Neutrophils # (Auto) 3.9 TH/MM3 Lymphocytes # (Auto) 2.2 TH/MM3 Monocytes # (Auto) 0.6 TH/MM3 Eosinophils # (Auto) 0.2 TH/MM3 Basophils # (Auto) 0.1 TH/MM3 CBC Comment DIFF FINAL Differential Comment Urine Color YELLOW Urine Turbidity HAZY Urine pH 6.5 Urine Specific [place] 1.027 Urine Protein TRACE mg/dL Urine Glucose (UA) NEG mg/dL Urine Ketones NEG mg/dL Urine Occult Blood MOD Urine Nitrite NEG Urine Bilirubin NEG Urine Urobilinogen 4.0 MG/DL Urine Leukocyte Esterase TRACE Urine RBC 49 /hpf Urine WBC 4 /hpf Urine Squamous Epithelial Cells 2 /hpf Urine Calcium Oxalate Crystals MANY /hpf Urine Mucus FEW /lpf Microscopic Urinalysis Comment CULT NOT INDICATED Blood Urea Nitrogen 12 MG/DL Creatinine 0.64 MG/DL Random Glucose 56 MG/DL Calcium Level 8.9 MG/DL Sodium Level 144 MEQ/L Potassium Level 4.5 MEQ/L Chloride Level 113 MEQ/L Carbon Dioxide Level 25.2 MEQ/L Anion Gap 6 MEQ/L Estimat Glomerular Filtration Rate 95 ML/MIN MDM Medical Decision Making Medical Screen Exam Complete: Yes Emergency Medical Condition: Yes Medical Record Reviewed: Yes Differential Diagnosis Ureteral colic, UTI, muscular skeletal pain Narrative Course 3:07 PM patient has been in this emergency room multiple times for various pain- related condition. She in fact was here about 3 weeks ago for the same complaint. There was a CT scan of her abdomen and pelvis done which was negative for any ureteral stone. I will medicate her for pain but also ordered another CT and if that's negative for any ureteral stone she will be discharged. Awaiting for the UA and blood work. 3:[address] scan shows a 2-3 mm calculi in the distal left ureter close to the UVJ. I have ordered some more pain medication and Flomax. Given the size of the stone she should be able to pass it. I'll discharge her home on prescriptions. Procedures EKG Prior to Arrival: No Diagnosis Primary Impression: Ureteral colic Referrals: Jeremias Deluna MD Additional Instructions: Please return to the ER if the condition worsens or any other new concerns. Otherwise follow-up with the urologist whose name and number been provided to this discharge paper. Take the medication as per the prescription direction. Drink lots of fluid. Med/Other Pt SpecificInfo: Prescription(s) given Scripts Tamsulosin (Flomax) 0.4 Mg Cap 0.4 MG PO HS for Manage Prostate Problems, #10 CAP 0 Refills Prov: Mika Shabazz MD 03/29/17 Disposition: 01 DISCHARGE HOME Condition: Stable Mika Shabazz MD Mar 29, 2017 14:07
[2017-03-29] MEDS ORDERED: SYMB80AE INH (14:14)
[2017-03-29] MEDS ORDERED: MORPHINE SULFATE 4 MG/ML INJ IV PUSH ONE ×3 (14:30→17:30)
[2017-03-29] MEDS ORDERED: SODIUM CHLORIDE 0.9% FLUSH 10 ML FLUSH IVF PRN (14:30)
[2017-03-29 14:49] VITALS: BP 144/79; PULSE 74; RESP 18; O2SAT 99
[2017-03-29 15:09] LABS: AUTOMATED NEUTROPHIL # 3.9 TH/MM3 (1.8-7.7); BASOPHIL # 0.1 TH/MM3 (0-0.2); BASOPHIL % 0.7 % (0.0-2.0); EOSINOPHIL # 0.2 TH/MM3 (0-0.4); EOSINOPHIL % 3.2 % (0.0-4.0); HEMATOCRIT 38.1 % (35.0-46.0); HEMO FLAGS DIFF FINAL; LYMPHOCYTE # 2.2 TH/MM3 (1.0-4.8); MEAN CELL VOLUME 92.8 FL (80.0-100.0); MEAN CORPUSCULAR HEMOGLOBIN 32.7 PG (27.0-34.0); MEAN CORPUSCULAR HGB CONC 35.3 % (32.0-36.0); NEUT % 56.1 % (16.0-70.0); PLATELET COUNT 108 TH/MM3 (150-450); RED CELL DISTRIBUTION WIDTH 14.1 % (11.6-17.2); WHITE BLOOD COUNT 6.9 TH/MM3 (4.0-11.0)
[2017-03-29 15:20] LABS: BLOOD, URINE MOD (NEG); CALCIUM OXALATE CRYSTALS,URINE MANY /hpf; COMMENT (UR) CULT NOT INDICATED; CULTURE IF INDICATED CULT NOT INDICATED; GLUCOSE,URINE NEG (NEG); KETONE, URINE NEG (NEG); MUCUS URINE FEW /lpf (OCC); NITRITE,URINE NEG (NEG); PH, URINE 6.5 (5.0-8.5); SQUAMOUS EPITHELIAL CELL URINE 2 /hpf (0-5); URINE COLOR YELLOW (YELLW/STRAW)
--- NOTE | 2017-03-29 15:32 | RADRPT ---
EXAM DATE/TIME: 03/29/2017 15:05 [facility] COMPARISON: CT ABDOMEN & PELVIS W/O CONTRAST, March 03, 2017, 3:45. INDICATIONS : Left flank pain, nausea, difficulty urinating. ORAL CONTRAST: No oral contrast ingested. RADIATION DOSE: 4.88 CTDIvol (mGy) MEDICAL HISTORY : Chronic obstructive pulmonary disease. Hepatitis C. Renal calculi.Cervical cancer. SURGICAL HISTORY : Cholecystectomy. Hysterectomy. ENCOUNTER: Initial ACUITY: 1 day PAIN SCALE: 6/10 LOCATION: Left flank TECHNIQUE: Volumetric scanning of the abdomen and pelvis was performed. Using automated exposure control and ad justment of the mA and/or kV according to patient size, radiation dose was kept as low as reasonably achievable to obtain optimal diagnostic quality images. DICOM format image data is available electro nically for review and comparison. FINDINGS: LOWER LUNGS: The visualized lower lungs are clear. LIVER: Liver remains cirrhotic in appearance. The patient is status post cholecystectomy. Homogeneous densit y without lesion. There is no dilation of the biliary tree. No calcified gallstones. SPLEEN: Mildly prominent in size. PANCREAS: Within normal limits. KIDNEYS: Normal in size and shape. There is a tiny nonobstructing renal calculi again noted in the upper pole the right kidney. Left kidney demonstrates mild to moderate hydronephrosis which is new. There is mil d inflammatory change surrounding the renal pelvis as well. There is mild dilatation of portions of t he left ureter extending down to a small distal left ureteral calculus several centimeters above the ureterovesicular junction. This measures 2-3 mm in size. hydronephrosis. ADRENAL GLANDS: Within normal limits. VASCULAR: There is no aortic aneurysm. BOWEL/MESENTERY: The stomach, small bowel, and colon demonstrate no acute abnormality. There is no free intraperitone al air or fluid. ABDOMINAL WALL: Within normal limits. RETROPERITONEUM: There is no lymphadenopathy. BLADDER: No wall thickening or mass. REPRODUCTIVE: Within normal limits. INGUINAL: There is no lymphadenopathy or hernia. MUSCULOSKELETAL: Within normal limits for patient age. CONCLUSION: 1. Small distal left ureteral calculi proximally 2 cm above the ureterovesicular junction. This measu res approximately 2-3 mm in size. This is best seen on axial image #141. There is mild to moderate le ft hydronephrosis. 2. Tiny nonobstructing right renal calculus. 3. The liver remains mildly cirrhotic in appearance. 4. The spleen is mildly prominent in size. Vasile Moe MD on March 29, 2017 at 15:23 Board Certified Radiologist. This report was verified electronically.
[2017-03-29 15:40] LABS: BICARBONATE 25.2 MEQ/L (21.0-32.0); POTASSIUM 4.5 MEQ/L (3.5-5.1)
[2017-03-29] MEDS ORDERED: TAMSULOSIN HCL 0.4 MG CAP PO ONE (15:45)
[2017-03-29] MEDS ORDERED: SODIUM CHLOR 0.9% 1000 ML INJ 1,000 ML IV ONE (15:45)
[2017-03-29] MEDS ORDERED: HYDR-3516 PO (15:48)
[2017-03-29] MEDS ORDERED: TAMS5CAP PO (15:48)
== END 2017-03-29 17:54 | disposition home or self-care (01) ==
LOC: NEPE 13:52
DX: N20.1 Calculus of ureter (principal); R68.83 Chills (without fever); R35.0 Frequency of micturition; I10 Essential (primary) hypertension; E07.9 Disorder of thyroid, unspecified; Z72.0 Tobacco use; Z87.09 Personal history of other diseases of the respiratory system; Z86.59 Personal history of other mental and behavioral disorders; Z86.79 Personal history of other diseases of the circulatory system; Z87.19 Personal history of other diseases of the digestive system; Z86.19 Personal history of other infectious and parasitic diseases; Z87.442 Personal history of urinary calculi; Z87.39 Personal history of other diseases of the musculoskeletal system and connective tissue; Z86.69 Personal history of other diseases of the nervous system and sense organs
CPT/HCPCS: 74176; 80048; 81001; 85025; 96361; 96374; 96376; 99285; J2270; J7030

== ENCOUNTER 2017-04-02 18:02 | Emergency (ER) | payer MEDICARE, OTHER ==
[~2017-04-02 18:02] MED LIST changes: +HYDR-3516 PO; +SYMB80AE INH; +TAMS5CAP PO
[2017-04-02 18:04] VITALS: BP 133/86; PULSE 74; RESP 19; TEMP 99.1; O2SAT 97
[2017-04-02 18:29] VITALS: RESP 40; O2SAT 99
[2017-04-02] MEDS ORDERED: RESP: BUDESONIDE 0.5 MG/2 ML NEB NEB ONE (18:30)
[2017-04-02] MEDS ORDERED: SODIUM CHLORIDE 0.9% FLUSH 10 ML FLUSH IVF PRN (18:30)
[2017-04-02] MEDS ORDERED: methylPREDNISolone SOD SUCC 125 MG/2 ML VIAL IV PUSH ONE (18:30)
[2017-04-02] MEDS: RESP: ALBUTEROL 2.5 MG/IPRATROPIUM 0.5 MG NEB (SCH) INH ×2 (18:38→18:39)
--- NOTE | 2017-04-02 19:12 | RADRPT ---
EXAM DATE/TIME: 04/02/2017 18:45 [facility] COMPARISON: CHEST SINGLE AP, February 22, 2017, 0:35. INDICATIONS : Short of breath. MEDICAL HISTORY : Chronic obstructive pulmonary disease. Congestive heart failure. SURGICAL HISTORY : None. ENCOUNTER: Initial ACUITY: 2 days PAIN SCORE: 0/10 LOCATION: Bilateral chest FINDINGS: A single view of the chest demonstrates the lungs to be symmetrically aerated without evidence of mas s, infiltrate or effusion. The cardiomediastinal contours are unremarkable. Osseous structures are intact. CONCLUSION: No acute disease. Mateus Hooper MD on April 02, 2017 at 19:10 Board Certified Radiologist. This report was verified electronically.
--- NOTE | 2017-04-02 19:41 | PD ---
HPI Chief Complaint: Respiratory Symptoms Time Seen by Provider: 18:21 Travel History International Travel<30 days: No Contact w/Intl Traveler<30days: No Traveled to known affect area: No History of Present Illness HPI Patient is 56-year-old female presenting to the emergency department for evaluation of shortness of breath, wheezing and chest congestion. She states her symptoms started yesterday, she has gotten progressively more short of breath throughout the day. She had a DuoNeb nebulizer treatment this morning but ran out of her inhaler. She denies any nausea, vomiting, chest pain, headache, abdominal pain. Patient reports a history of COPD, cirrhosis, hypertension. She last used tobacco products 3 days ago. PFSH Past Medical History Asthma: Yes Anxiety: Yes Cancer: Yes (2002) Chemotherapy: Yes (2002) Chest Pain: Yes Congestive Heart Failure: Yes COPD: Yes Cerebrovascular Accident: Yes (2010 thinks has had about 2-3) Gastrointestinal Disorders: Yes (Ibs, colitis) GERD: Yes Hepatitis: Yes (HEPATITIS C) Hypertension: Yes Kidney Stones: Yes Musculoskeletal: Yes (back) Neurologic: Yes (seizures, encephalopathy) Immunizations Current: Yes Migraines: Yes Seizures: Yes Thyroid Disease: Yes (HYPER (GRAVES)) Tetanus Vaccination: < 5 Years Menopausal: Yes : 8 Para: 5 Miscarriage: 3 : 0 Past Surgical History Abdominal Surgery: Yes Body Medical Devices: steel plate in neck, hernia mesh Section: Yes (2) Cholecystectomy: Yes Gynecologic Surgery: Yes Hysterectomy: Yes Other Surgery: Yes (PLATE PLACED IN NECK WITH CERVIAL FUSION) Social History Alcohol Use: No Tobacco Use: Yes Substance Use: No Allergies-Medications (Allergen,Severity, Reaction): Coded Allergies: ciprofloxacin (Verified Allergy, Severe, HIVES, THROAT SWELLING AND DIARRHEA, 04/02/17) diatrizoate meglumine (Verified Allergy, Severe, SWOLLEN, 04/02/17) gadobenic acid (Verified Allergy, Severe, Swelling, 04/02/17) gadodiamide (Verified Allergy, Severe, Swelling, 04/02/17) gadoteridol (Verified Allergy, Severe, Swelling, 04/02/17) iodine (Verified Allergy, Severe, HIVES, THROAT SWELLING, 04/02/17) iodixanol (Verified Allergy, Severe, SWELLIN, 04/02/17) iohexol (Verified Allergy, Severe, Swelling, 04/02/17) ketorolac (Verified Allergy, Severe, HIVES AND THROAT SWELLING, 04/02/17) lisinopril (Verified Allergy, Severe, tongue / throat swelling, 04/02/17) penicillin G (Verified Allergy, Severe, HIVES, THROAT SWELLING, 04/02/17) potassium iodide (Verified Allergy, Severe, HIVES, THROAT SWELLING, ) povidone-iodine (Verified Allergy, Severe, HIVES, THROAT SWELLING, 04/02/17 ) sodium iodide (Verified Allergy, Severe, HIVES, THROAT SWELLING, 04/02/17) sodium iodide (Verified Allergy, Severe, HIVES, THROAT SWELLING, 04/02/17) estradiol (Verified Allergy, Intermediate, hives, 04/02/17) estrogens, conjugated (Verified Allergy, Intermediate, hives, 04/02/17) Reported Meds & Prescriptions Reported Meds & Active Scripts Active Hydrocodone-Homatropine Liq 5-1.5 Mg/5 Ml Syrp 5 Ml PO Q6HR PRN Prednisone 50 Mg Tab 50 Mg PO DAILY Albuterol Neb (Albuterol Sulfate) 2.5 Mg/3 Ml Neb 2.5 Mg NEB Q4HR NEB PRN Azithromycin 250 Mg Tab 250 Mg PO DAILY Flomax (Tamsulosin HCl) 0.4 Mg Cap 0.4 Mg PO HS Zofran Odt (Ondansetron Odt) 4 Mg Tab 4 Mg SL Q6HR PRN Singulair (Montelukast Sodium) 10 Mg Tab 10 Mg PO HS Reported Creon (Amylase/Lipase/Protease) 6,000-19,000-30,000 Units Cap 1 Cap PO TIDPC Xifaxan (Rifaximin) 550 Mg Tab 550 Mg PO DAILY Zyrtec (Cetirizine HCl) 10 Mg Tablet 1 Tab PO BID Omeprazole 40 Mg Cap 40 Mg PO DAILY Propranolol (Propranolol HCl) 20 Mg Tab 20 Mg PO DAILY Review of Systems Except as stated in HPI: all other systems reviewed are Neg General / Constitutional: No: Fever HENT: No: Headaches Cardiovascular: Positive: Dyspnea on exertion, No: Chest Pain or Discomfort Respiratory: Positive: Cough, Shortness of Breath, Wheezing Gastrointestinal: No: Nausea, Vomiting, Abdominal Pain Musculoskeletal: No: Myalgias Neurologic: No: Weakness, Dizziness, Syncope Physical Exam Narrative GENERAL: Well-developed, well-nourished, alert female. SKIN: Warm and dry. HEAD: Atraumatic. Normocephalic. EYES: Pupils equal and round. No scleral icterus. No injection or drainage. ENT: No nasal bleeding or discharge. Mucous membranes pink and moist. NECK: Trachea midline. No JVD. CARDIOVASCULAR: Regular rate and rhythm. RESPIRATORY: Tachypneic, expiratory wheezing throughout, diminished in bases. GASTROINTESTINAL: Abdomen soft, non-tender, nondistended. Hepatic and splenic margins not palpable. MUSCULOSKELETAL: Extremities without clubbing, cyanosis, or edema. No obvious deformities. NEUROLOGICAL: Awake and alert. No obvious cranial nerve deficits. Motor grossly within normal limits. Five out of 5 muscle strength in the arms and legs. Normal speech. PSYCHIATRIC: Appropriate mood and affect; insight and judgment normal. Data Data Last Documented VS Vital Signs Date Time Temp Pulse Resp B/P (MAP) Pulse Ox O2 Delivery O2 Flow Rate FiO2 04/02/17 20:34 69 22 154/76 (102) 98 Room Air 04/02/17 18:04 99.1 Orders Orders Chest, Single Ap (04/02/17 18:21) Ecg Monitoring (04/02/17 18:21) Iv Access Insert/Monitor (04/02/17 18:21) Oximetry (04/02/17 18:21) Oxygen Administration (04/02/17 18:21) Methylprednisolone So Succ Inj (Solumedr (04/02/17 18:30) Albuterol-Ipratropium Neb (Duoneb Neb) (04/02/17 18:30) Sodium Chloride 0.9% Flush (Ns Flush) (04/02/17 18:30) Budesonide Neb (Pulmicort Respule Neb) (04/02/17 18:30) Azithromycin Inj (Zithromax Inj) (04/02/17 20:00) Hydrocodone-Homatropine Liq (Hycodan Liq (04/02/17 20:45) Ed Discharge Order (04/02/17 20:46) [facility] Medical Decision Making Medical Screen Exam Complete: Yes Emergency Medical Condition: Yes Medical Record Reviewed: Yes Interpretation(s) Vital Signs Date Time Temp Pulse Resp B/P (MAP) Pulse Ox O2 Delivery O2 Flow Rate FiO2 04/02/17 18:29 40 99 Room Air 04/02/17 18:25 40 04/02/17 18:04 99.1 74 19 133/86 (102) 97 Room Air Differential Diagnosis COPD exacerbation versus bronchitis versus versus other Narrative Course Patient is 56-year-old female that presented to emergency for evaluation of COPD exacerbation. She is out of her inhaler and used her last DuoNeb this morning. She is slightly tachypneic on arrival, vital signs are otherwise stable. Chest x-ray, DuoNeb's and budesonide ordered. She reports being out of her Ventolin inhaler, Symbicort and DuoNeb treatments. Patient reassessed , she reports improvement in her breathing. She is resting comfortably, she is ready to be discharged. Patient was ambulated her oxygen saturation remained at 98%. Patient will be given dose of azithromycin in the emergency department, she will also be given dose of cough medication. She will be provided with prescriptions for a full course of antibiotic therapy. She was encouraged to follow-up with her primary doctor, utilize nebulizers and rescue inhaler as needed and as directed. She was encouraged to continue to avoid tobacco use. She verbalized understanding of these instructions. Patient stable for discharge. Diagnosis Primary Impression: COPD with exacerbation Referrals: Primary Care Physician 2 days Patient Instructions: COPD (Chronic Obstructive Pulmonary Disease) (ED), General Instructions, Nutrition Guidelines for People with COPD (ED) Additional Instructions: Continue to avoid tobacco use Take medications as directed Utilize nebulizer and rescue inhaler as needed and as directed Return to emergency department for any new or worsening symptoms Maintain adequate fluid intake Follow-up with your primary doctor Med/Other Pt SpecificInfo: Prescription(s) given Scripts Albuterol 18 GM Inh (Ventolin Hfa 18 GM Inh) 90 Mcg/Act Aer 2 PUFF INH Q4-6H Y for SHORTNESS OF BREATH, #1 INHALER 0 Refills Prov: Comfort Ang LEAD CARPENTER 04/02/17 Budesonide-Formoterol Inh (Symbicort Inh) 160-4.5 Mcg/Act Aero 1 PUFF INH Q12HR, #1 INHALER 0 Refills Prov: Comfort Ang LEAD CARPENTER 04/02/17 Hydrocodone-Homatropine Liq (Hydrocodone-Homatropine Liq) 5-1.5 Mg/5 Ml Syrp 5 ML PO Q6HR Y for COUGH, #100 ML 0 Refills Prov: Comfort Ang 04/02/17 Prednisone (Prednisone) 50 Mg Tab 50 MG PO DAILY, #5 TAB 0 Refills Prov: Comfort Ang 04/02/17 Albuterol Neb (Albuterol Neb) 2.5 Mg/3 Ml Neb 2.5 MG NEB Q4HR NEB Y for SHORTNESS OF BREATH, #180 NEBULE 0 Refills Prov: Comfort Ang 04/02/17 Azithromycin (Azithromycin) 250 Mg Tab 250 MG PO DAILY for Infection, #5 TAB 0 Refills Prov: Comfort Ang 04/02/17 Disposition: 01 DISCHARGE HOME Condition: Stable Comfort Ang Apr 02, 2017 19:41
[2017-04-02 19:42] VITALS: BP 141/92; PULSE 76; RESP 21; O2SAT 98
[2017-04-02] MEDS ORDERED: AZITHROMYCIN INJ 500 MG in SODIUM CHLOR 0.9% 250 ML INJ 250 ML IV ONE (20:00)
[2017-04-02 20:34] VITALS: BP 154/76; PULSE 69; RESP 22; O2SAT 98
[2017-04-02] MEDS ORDERED: ALBU0.08 NEB (20:45)
[2017-04-02] MEDS ORDERED: HYDROcodone 5 MG/HOMATROPINE 1.5 MG SYRUP 5 ML CUP PO ONE (20:45)
[2017-04-02] MEDS ORDERED: HYDR5SYP10 PO (20:45)
[2017-04-02] MEDS ORDERED: AZIT250T3 PO (20:45)
[2017-04-02] MEDS ORDERED: PRED50 PO (20:45)
[2017-04-02] MEDS ORDERED: VENTAER INH (20:49)
[2017-04-02] MEDS ORDERED: SYMB160A INH (20:49)
[2017-04-02 22:11] VITALS: BP 137/73
== END 2017-04-02 22:18 | disposition home or self-care (01) ==
LOC: NEPE 18:02
DX: J44.1 Chronic obstructive pulmonary disease with (acute) exacerbation (principal); F41.9 Anxiety disorder, unspecified; I11.0 Hypertensive heart disease with heart failure; I50.9 Heart failure, unspecified; K21.9 Gastro-esophageal reflux disease without esophagitis; R56.9 Unspecified convulsions; E05.00 Thyrotoxicosis with diffuse goiter without thyrotoxic crisis or storm; Z86.73 Personal history of transient ischemic attack (TIA), and cerebral infarction without residual deficits; Z87.19 Personal history of other diseases of the digestive system
CPT/HCPCS: 71010; 94640; 94664; 96365; 96366; 96375; 99284; J0456; J2930; J7050; J7626

== ENCOUNTER 2017-04-10 12:30 | Emergency (ER) | payer MEDICARE, OTHER ==
[~2017-04-10 12:30] MED LIST changes: +ALBU0.08 NEB; +AZIT250T3 PO; -HYDR-3516 PO; +HYDR5SYP10 PO; +PRED50 PO; +SYMB160A INH; -SYMB80AE INH
[2017-04-10 12:32] VITALS: BP 141/96; PULSE 88; RESP 17; TEMP 99; O2SAT 97
[2017-04-10] MEDS ORDERED: MORPHINE SULFATE 4 MG/ML INJ IV PUSH ONE (13:30)
[2017-04-10] MEDS ORDERED: SODIUM CHLORIDE 0.9% FLUSH 10 ML FLUSH IV FLUSH PRN (13:30)
[2017-04-10] MEDS ORDERED: IBUP200C PO (13:31)
[2017-04-10] MEDS ORDERED: TYLE325T PO (13:31)
[2017-04-10] MEDS ORDERED: MONT10TA2 PO (13:31)
[2017-04-10 14:00] VITALS: O2SAT 99
[2017-04-10 14:16] LABS: AUTOMATED NEUTROPHIL # 2.7 TH/MM3 (1.8-7.7); BASOPHIL % 0.8 % (0.0-2.0); EOSINOPHIL # 0.1 TH/MM3 (0-0.4); EOSINOPHIL % 3.2 % (0.0-4.0); HEMATOCRIT 36.8 % (35.0-46.0); LYMPH % 27.8 % (9.0-44.0); LYMPHOCYTE # 1.2 TH/MM3 (1.0-4.8); MEAN CELL VOLUME 93.4 FL (80.0-100.0); MEAN CORPUSCULAR HEMOGLOBIN 31.6 PG (27.0-34.0); MEAN CORPUSCULAR HGB CONC 33.9 % (32.0-36.0); MONO % 7.2 % (0.0-8.0); PLATELET COUNT 76 TH/MM3 (150-450); RED BLOOD COUNT 3.94 MIL/MM3 (4.00-5.30); RED CELL DISTRIBUTION WIDTH 14.3 % (11.6-17.2); WHITE BLOOD COUNT 4.4 TH/MM3 (4.0-11.0)
[2017-04-10 14:17] LABS: BLOOD, URINE NEG (NEG); COMMENT (UR) CULT NOT INDICATED; CULTURE IF INDICATED CULT NOT INDICATED; GLUCOSE,URINE NEG (NEG); KETONE, URINE NEG (NEG); NITRITE,URINE NEG (NEG); PH, URINE 6.5 (5.0-8.5); SQUAMOUS EPITHELIAL CELL URINE 1 /hpf (0-5); URINE COLOR LIGHT-YELLOW (YELLW/STRAW)
[2017-04-10 14:18] LABS: HEMO FLAGS AUTO DIFF
[2017-04-10 14:40] LABS: BICARBONATE 24.4 MEQ/L (21.0-32.0)
[2017-04-10 14:41] LABS: POTASSIUM 4.9 MEQ/L (3.5-5.1)
[2017-04-10 15:10] LABS: PLATELET ESTIMATE SMEAR LOW (NORMAL); PLATELET MORPHOLOGY NORMAL (NORMAL); SCAN/DIFF AUTO DIFF CONFIRMED
--- NOTE | 2017-04-10 15:52 | RADRPT ---
EXAM DATE/TIME: 04/10/2017 14:58 [facility] COMPARISON: CT ABDOMEN & PELVIS W/O CONTRAST, March 29, 2017, 15:05. INDICATIONS : Patient complains of left flank pain. ORAL CONTRAST: No oral contrast ingested. RADIATION DOSE: 7.90 CTDIvol (mGy) MEDICAL HISTORY : Renal calculi. Cardiovascular disease Hypertension. SURGICAL HISTORY : Cholecystectomy. Hysterectomy. ENCOUNTER: Initial ACUITY: 2 weeks PAIN SCALE: 8/10 LOCATION: Left flank TECHNIQUE: Volumetric scanning of the abdomen and pelvis was performed. Using automated exposure control and ad justment of the mA and/or kV according to patient size, radiation dose was kept as low as reasonably achievable to obtain optimal diagnostic quality images. DICOM format image data is available electro nically for review and comparison. FINDINGS: LOWER LUNGS: The visualized lower lungs are clear. LIVER: Cirrhotic appearing liver with recanalized periumbilical vein. Gallbladder is surgically absent. SPLEEN: Spleen is enlarged measuring up to 15 cm. There are very prominent right splenorenal collaterals. PANCREAS: Within normal limits. KIDNEYS: 3 mm nonobstructing posterior calyceal calculus in the superior pole of the right kidney. No addition al radiopaque renal calculi. No evidence for hydronephrosis or hydroureter. No significant perinephri c stranding. ADRENAL GLANDS: Within normal limits. VASCULAR: There is no aortic aneurysm. BOWEL/MESENTERY: The stomach, small bowel, and colon demonstrate no acute abnormality. Appendix is visualized and nor mal in appearance. There is no free intraperitoneal air or fluid. ABDOMINAL WALL: Within normal limits. RETROPERITONEUM: There is no lymphadenopathy. BLADDER: No wall thickening or mass. REPRODUCTIVE: Uterus is surgically absent. INGUINAL: There is no lymphadenopathy or hernia. MUSCULOSKELETAL: Degenerative spondylosis of the lower lumbar spine. CONCLUSION: 1. 3 mm nonobstructing posterior calyceal calculus in the superior pole of the right kidney. Otherwis e, no additional radiopaque renal calculi or evidence for obstructive uropathy. 2. Normal appendix. 3. Cirrhotic liver with evidence for profound portal hypertension including splenomegaly and very pro minent right splenorenal collaterals. No ascites. 1. Mark Murrell MD on April 10, 2017 at 15:43 Board Certified Radiologist. This report was verified electronically.
--- NOTE | 2017-04-10 15:56 | PD ---
HPI Chief Complaint: Abdominal Pain Time Seen by Provider: 12:54 Travel History International Travel<30 days: No Contact w/Intl Traveler<30days: No History of Present Illness HPI 56-year-old female came to the emergency room with history of left-sided flank pain. Patient has history of chronic kidney stone and chronic pain syndrome. She says this time it started yesterday. No history of fever or chills or hematuria. Pain is just there were no aggravating or relieving factors identified. It radiates to the left lower quadrant. [facility] Past Medical History Narrative Medical List of her past medical, surgical, social and family history is reviewed from the nursing note. Asthma: Yes Blood Disorders: No Anxiety: Yes Heart Rhythm Problems: No Cancer: Yes (2002) Cardiovascular Problems: Yes Chemotherapy: Yes (2002) Chest Pain: Yes Congestive Heart Failure: Yes COPD: Yes Cerebrovascular Accident: Yes (2010 thinks has had about 2-3) Diabetes: No Diminished Hearing: No Endocrine: Yes Gastrointestinal Disorders: Yes (Ibs, colitis) GERD: Yes Hepatitis: Yes (HEPATITIS C) Hiatal Hernia: No Hypertension: Yes Immune Disorder: Yes (HEP C FROM BLOOD TRANSFUSION 1974 ) Kidney Stones: Yes Medical other: No Musculoskeletal: Yes (back) Neurologic: Yes (seizures, encephalopathy) Psychiatric: Yes Respiratory: Yes (COPD) Immunizations Current: Yes Migraines: Yes Seizures: Yes Sleep Apnea: No Thyroid Disease: Yes (HYPER (GRAVES)) Tetanus Vaccination: < 5 Years Menopausal: Yes : 8 Para: 5 Miscarriage: 3 : 0 Past Surgical History Abdominal Surgery: Yes Body Medical Devices: steel plate in neck, hernia mesh Section: Yes (2) Cholecystectomy: Yes Gynecologic Surgery: Yes Hysterectomy: Yes Joint Replacement: No Other Surgery: Yes (PLATE PLACED IN NECK WITH CERVIAL FUSION) Social History Alcohol Use: No Tobacco Use: Yes Substance Use: No Allergies-Medications (Allergen,Severity, Reaction): Coded Allergies: ciprofloxacin (Verified Allergy, Severe, HIVES, THROAT SWELLING AND DIARRHEA, 04/02/17) diatrizoate meglumine (Verified Allergy, Severe, SWOLLEN, 04/02/17) gadobenic acid (Verified Allergy, Severe, Swelling, 04/02/17) gadodiamide (Verified Allergy, Severe, Swelling, 04/02/17) gadoteridol (Verified Allergy, Severe, Swelling, 04/02/17) iodine (Verified Allergy, Severe, HIVES, THROAT SWELLING, 04/02/17) iodixanol (Verified Allergy, Severe, SWELLIN, 04/02/17) iohexol (Verified Allergy, Severe, Swelling, 04/02/17) ketorolac (Verified Allergy, Severe, HIVES AND THROAT SWELLING, 04/02/17) lisinopril (Verified Allergy, Severe, tongue / throat swelling, 04/02/17) penicillin G (Verified Allergy, Severe, HIVES, THROAT SWELLING, 04/02/17) potassium iodide (Verified Allergy, Severe, HIVES, THROAT SWELLING, ) povidone-iodine (Verified Allergy, Severe, HIVES, THROAT SWELLING, 04/02/17 ) sodium iodide (Verified Allergy, Severe, HIVES, THROAT SWELLING, 04/02/17) sodium iodide (Verified Allergy, Severe, HIVES, THROAT SWELLING, 04/02/17) estradiol (Verified Allergy, Intermediate, hives, 04/02/17) estrogens, conjugated (Verified Allergy, Intermediate, hives, 04/02/17) Comments list of her allergies reviewed from the nursing note. Reported Meds & Prescriptions Reported Meds & Active Scripts Active Ventolin Hfa 18 GM Inh (Albuterol Sulfate) 90 Mcg/Act Aer 2 Puff INH Q4-6H PRN Symbicort Inh (Budesonide/Formoterol Fumarate) 160-4.5 Mcg/Act Aero 1 Puff INH Q12HR Albuterol Neb (Albuterol Sulfate) 2.5 Mg/3 Ml Neb 2.5 Mg NEB Q4HR NEB PRN Flomax (Tamsulosin HCl) 0.4 Mg Cap 0.4 Mg PO HS Zofran Odt (Ondansetron Odt) 4 Mg Tab 4 Mg SL Q6HR PRN Reported Tylenol (Acetaminophen) 325 Mg Tab 650 Mg PO Q6H PRN Ibuprofen 200 Mg Cap 600 Mg PO Q8HR PRN Singulair (Montelukast Sodium) 10 Mg Tab 10 Mg PO DAILY Creon (Amylase/Lipase/Protease) 6,000-19,000-30,000 Units Cap 1 Cap PO TIDPC Xifaxan (Rifaximin) 550 Mg Tab 550 Mg PO DAILY Zyrtec (Cetirizine HCl) 10 Mg Tablet 10 Mg PO DAILY Omeprazole 40 Mg Cap 40 Mg PO DAILY Propranolol (Propranolol HCl) 20 Mg Tab 20 Mg PO DAILY Narrative Medication List of her home medications reviewed from the nursing note. Review of Systems Except as stated in HPI: all other systems reviewed are Neg Genitourinary: Positive: Flank Pain Physical Exam Narrative GENERAL: Awake, alert, moderate distress SKIN: Focused skin assessment warm/dry. HEAD: Atraumatic. Normocephalic. EYES: Pupils equal and round. No scleral icterus. No injection or drainage. ENT: No nasal bleeding or discharge. Mucous membranes pink and moist. NECK: Trachea midline. No JVD. CARDIOVASCULAR: Regular rate and rhythm. No murmur appreciated. RESPIRATORY: No accessory muscle use. Clear to auscultation. Breath sounds equal bilaterally. GASTROINTESTINAL: Abdomen soft, non-tender, nondistended. Hepatic and splenic margins not palpable. MUSCULOSKELETAL: No obvious deformities. No clubbing. No cyanosis. No edema. NEUROLOGICAL: Awake and alert. No obvious cranial nerve deficits. Motor grossly within normal limits. Normal speech. PSYCHIATRIC: Appropriate mood and affect; insight and judgment normal. Data Data Last Documented VS Orders Orders Basic Metabolic Panel (Bmp) (04/10/17 13:22) Complete Blood Count With Diff (04/10/17 13:22) Urinalysis - C+S If Indicated (04/10/17 13:22) Ct Abd/Pel W/O Iv Contrast (04/10/17 13:22) Iv Access Insert/Monitor (04/10/17 13:22) Ecg Monitoring (04/10/17 13:22) Oximetry (04/10/17 13:22) Morphine Inj (Morphine Inj) (04/10/17 13:30) Sodium Chloride 0.9% Flush (Ns Flush) (04/10/17 13:30) Ed Discharge Order (04/10/17 15:56) Labs Laboratory Tests Test 04/10/17 13:50 White Blood Count 4.4 TH/MM3 Red Blood Count 3.94 MIL/MM3 Hemoglobin 12.5 GM/DL Hematocrit 36.8 % Mean Corpuscular Volume 93.4 FL Mean Corpuscular Hemoglobin 31.6 PG Mean Corpuscular Hemoglobin Concent 33.9 % Red Cell Distribution Width 14.3 % Platelet Count 76 TH/MM3 Mean Platelet Volume 9.7 FL Neutrophils (%) (Auto) 61.0 % Lymphocytes (%) (Auto) 27.8 % Monocytes (%) (Auto) 7.2 % Eosinophils (%) (Auto) 3.2 % Basophils (%) (Auto) 0.8 % Neutrophils # (Auto) 2.7 TH/MM3 Lymphocytes # (Auto) 1.2 TH/MM3 Monocytes # (Auto) 0.3 TH/MM3 Eosinophils # (Auto) 0.1 TH/MM3 Basophils # (Auto) 0.0 TH/MM3 CBC Comment AUTO DIFF Differential Comment AUTO DIFF CONFIRMED Platelet Estimate LOW Platelet Morphology Comment NORMAL Urine Color LIGHT-YELLOW Urine Turbidity CLEAR Urine pH 6.5 Urine Specific [place] 1.007 Urine Protein NEG mg/dL Urine Glucose (UA) NEG mg/dL Urine Ketones NEG mg/dL Urine Occult Blood NEG Urine Nitrite NEG Urine Bilirubin NEG Urine Urobilinogen 2.0 MG/DL Urine Leukocyte Esterase NEG Urine RBC LESS THAN 1 /hpf Urine WBC 1 /hpf Urine Squamous Epithelial Cells 1 /hpf Microscopic Urinalysis Comment CULT NOT INDICATED Blood Urea Nitrogen 7 MG/DL Creatinine 0.48 MG/DL Random Glucose 111 MG/DL Calcium Level 8.4 MG/DL Sodium Level 141 MEQ/L Potassium Level 4.9 MEQ/L Chloride Level 112 MEQ/L Carbon Dioxide Level 24.4 MEQ/L Anion Gap 5 MEQ/L Estimat Glomerular Filtration Rate 133 ML/MIN [facility] Medical Decision Making Medical Screen Exam Complete: Yes Emergency Medical Condition: Yes Medical Record Reviewed: Yes Differential Diagnosis Ureteral colic, acute pyelonephritis, chronic pain syndrome Narrative Course 3:[address] scan does not show any obstructing stone. There is an incidental finding of portal hypertension. This would explain her thumb as it opinion. Patient will be discharged home. She was initially medicated for pain Procedures EKG Prior to Arrival: No Diagnosis Primary Impression: Chronic pain syndrome Additional Impressions: Flank pain Portal hypertension Referrals: Primary Care Physician Additional Instructions: follow-up with your primary care physician Disposition: 01 DISCHARGE HOME Condition: Stable Mika Shabazz MD Apr 10, 2017 15:56
== END 2017-04-10 16:15 | disposition home or self-care (01) ==
LOC: NEPC 12:30
DX: G89.4 Chronic pain syndrome (principal); R10.9 Unspecified abdominal pain; K76.6 Portal hypertension; J45.909 Unspecified asthma, uncomplicated; F41.9 Anxiety disorder, unspecified; I11.0 Hypertensive heart disease with heart failure; I50.9 Heart failure, unspecified; J44.9 Chronic obstructive pulmonary disease, unspecified; Z87.19 Personal history of other diseases of the digestive system
CPT/HCPCS: 74176; 80048; 81001; 85025; 96374; 99285; J2270

== ENCOUNTER 2017-07-25 11:30 | Emergency (ER) | payer MEDICARE, OTHER ==
[~2017-07-25 11:30] MED LIST changes: -AZIT250T3 PO; -HYDR5SYP10 PO; +IBUP200C PO; -PRED50 PO; +TYLE325T PO
[2017-07-25 12:11] VITALS: BP 160/85; PULSE 103; RESP 20; TEMP 98.2; O2SAT 96
[2017-07-25 13:48] LABS: AUTOMATED NEUTROPHIL # 2.6 TH/MM3 (1.8-7.7); BASOPHIL % 0.5 % (0.0-2.0); EOSINOPHIL # 0.1 TH/MM3 (0-0.4); EOSINOPHIL % 2.3 % (0.0-4.0); HEMATOCRIT 41.5 % (35.0-46.0); HEMOGLOBIN 14.1 GM/DL (11.6-15.3); LYMPH % 27.6 % (9.0-44.0); LYMPHOCYTE # 1.1 TH/MM3 (1.0-4.8); MEAN CELL VOLUME 92.1 FL (80.0-100.0); MEAN CORPUSCULAR HEMOGLOBIN 31.3 PG (27.0-34.0); MEAN PLATELET VOLUME 9.5 FL (7.0-11.0); MONO % 7.5 % (0.0-8.0); MONOCYTE # 0.3 TH/MM3 (0-0.9); NEUT % 62.1 % (16.0-70.0); PLATELET COUNT 61 TH/MM3 (150-450); RED CELL DISTRIBUTION WIDTH 15.7 % (11.6-17.2); WHITE BLOOD COUNT 4.2 TH/MM3 (4.0-11.0)
--- NOTE | 2017-07-25 13:48 | RADRPT ---
EXAM DATE/TIME: 07/25/2017 13:28 [place] COMPARISON: CHEST PA & LAT, March 14, 2017, 10:48. INDICATIONS : Dizziness, weakness and short of breath. MEDICAL HISTORY : Chronic obstructive pulmonary disease. Hepatitis C. Renal calculi.Cervical cancer. SURGICAL HISTORY : Cholecystectomy. Hysterectomy ENCOUNTER: Initial ACUITY: 1 day PAIN SCORE: 0/10 LOCATION: Bilateral chest FINDINGS: PA and lateral views of the chest demonstrate the lungs to be symmetrically aerated without evidence of mass, infiltrate or effusion. The cardiomediastinal contours are unremarkable. Osseous structure s are intact. CONCLUSION: No acute disease. No significant change has occurred. Chito Lane MD on July 25, 2017 at 13:46 Board Certified Radiologist. This report was verified electronically.
[2017-07-25 14:06] LABS: ALKALINE PHOSPHATASE 81 U/L (45-117); BACTERIA, URINE RARE /hpf; BLOOD, URINE NEG (NEG); GLUCOSE,URINE NEG (NEG); KETONE, URINE 10 mg/dL (NEG); MUCUS URINE MOD /lpf (OCC); NITRITE,URINE NEG (NEG); PH, URINE 6.5 (5.0-8.5); SQUAMOUS EPITHELIAL CELL URINE 10 /hpf (0-5); TOTAL BILIRUBIN ADULT 1.7 MG/DL (0.2-1.0); TOTAL PROTEIN 7.1 GM/DL (6.4-8.2); URINE COLOR YELLOW (YELLW/STRAW); URINE LEUKOCYTE ESTERASE SMALL (NEG)
[2017-07-25 14:13] LABS: ALBUMIN 3.6 GM/DL (3.4-5.0); ALT (GPT) 31 U/L (10-53); AST (GOT) 32 U/L (15-37); BICARBONATE 26.7 MEQ/L (21.0-32.0); BLOOD UREA NITROGEN 11 MG/DL (7-18); CALCIUM 8.6 MG/DL (8.5-10.1); CHLORIDE 111 MEQ/L (98-107); CREATININE 0.55 MG/DL (0.50-1.00); GLOMERULAR FILTRATION RATE 113 ML/MIN (>89); GLUCOSE,RANDOM 108 MG/DL (74-106); SODIUM (NA) 146 MEQ/L (136-145)
[2017-07-25 14:16] LABS: BILIRUBIN, URINE NEG (NEG)
[2017-07-25 14:45] LABS: OVALOCYTES 1+ (NORMAL)
[2017-07-25] MEDS ORDERED: FLUCONAZOLE 100 MG TAB PO ONE (15:45)
[2017-07-25] MEDS ORDERED: ALUMINUM/MAGNESIUM/SIMETH 30 ML CUP PO ONE (15:45)
[2017-07-25] MEDS ORDERED: LIDOCAINE VISCOUS 2% SOLN 15 ML UDC PO ONE (15:45)
[2017-07-25] MEDS ORDERED: SUCR1TAB PO (15:49)
--- NOTE | 2017-07-25 15:49 | PD ---
HPI Chief Complaint: GI Complaint Time Seen by Provider: 15:43 Travel History International Travel<30 days: No Contact w/Intl Traveler<30days: No Traveled to known affect area: No History of Present Illness HPI 57-year-old presents emerged from clinical abdominal pain. Pain mostly in the epigastrium, worse after eating, ongoing for the past 3 days or so. She feels like she has thrush. States she went in for COPD exacerbation recently and was given steroids and feel like she may have developed thrush. Physical thrush is dipping into her stomach giving of the pains. She is a history of recurrent chronic epigastric pain in the past. She is treated with antacid medicine for GERD. She is also on multiple visits to the ED for abdominal pain related to different complaints recently. History Past Medical History Narrative Medical COPD Cirrhosis Chronic pancreatitis Menopausal: Yes : 8 Para: 5 Social History Alcohol Use: No Tobacco Use: Yes Allergies-Medications (Allergen,Severity, Reaction): Coded Allergies: ciprofloxacin (Verified Allergy, Severe, HIVES, THROAT SWELLING AND DIARRHEA, 04/02/17) diatrizoate meglumine (Verified Allergy, Severe, SWOLLEN, 04/02/17) gadobenic acid (Verified Allergy, Severe, Swelling, 04/02/17) gadodiamide (Verified Allergy, Severe, Swelling, 04/02/17) gadoteridol (Verified Allergy, Severe, Swelling, 04/02/17) iodine (Verified Allergy, Severe, HIVES, THROAT SWELLING, 04/02/17) iodixanol (Verified Allergy, Severe, SWELLIN, 04/02/17) iohexol (Verified Allergy, Severe, Swelling, 04/02/17) ketorolac (Verified Allergy, Severe, HIVES AND THROAT SWELLING, 04/02/17) lisinopril (Verified Allergy, Severe, tongue / throat swelling, 04/02/17) penicillin G (Verified Allergy, Severe, HIVES, THROAT SWELLING, 04/02/17) potassium iodide (Verified Allergy, Severe, HIVES, THROAT SWELLING, ) povidone-iodine (Verified Allergy, Severe, HIVES, THROAT SWELLING, 04/02/17 ) sodium iodide (Verified Allergy, Severe, HIVES, THROAT SWELLING, 04/02/17) sodium iodide (Verified Allergy, Severe, HIVES, THROAT SWELLING, 04/02/17) estradiol (Verified Allergy, Intermediate, hives, 04/02/17) estrogens, conjugated (Verified Allergy, Intermediate, hives, 04/02/17) Reported Meds & Prescriptions Reported Meds & Active Scripts Active Ventolin Hfa 18 GM Inh (Albuterol Sulfate) 90 Mcg/Act Aer 2 Puff INH Q4-6H PRN Symbicort Inh (Budesonide/Formoterol Fumarate) 160-4.5 Mcg/Act Aero 1 Puff INH Q12HR Albuterol Neb (Albuterol Sulfate) 2.5 Mg/3 Ml Neb 2.5 Mg NEB Q4HR NEB PRN Flomax (Tamsulosin HCl) 0.4 Mg Cap 0.4 Mg PO HS Zofran Odt (Ondansetron Odt) 4 Mg Tab 4 Mg SL Q6HR PRN Reported Tylenol (Acetaminophen) 325 Mg Tab 650 Mg PO Q6H PRN Ibuprofen 200 Mg Cap 600 Mg PO Q8HR PRN Singulair (Montelukast Sodium) 10 Mg Tab 10 Mg PO DAILY Creon (Amylase/Lipase/Protease) 6,000-19,000-30,000 Units Cap 1 Cap PO TIDPC Xifaxan (Rifaximin) 550 Mg Tab 550 Mg PO DAILY Zyrtec (Cetirizine HCl) 10 Mg Tablet 10 Mg PO DAILY Omeprazole 40 Mg Cap 40 Mg PO DAILY Propranolol (Propranolol HCl) 20 Mg Tab 20 Mg PO DAILY Review of Systems Except as stated in HPI: all other systems reviewed are Neg Physical Exam Narrative GENERAL: Well-appearing 37-year-old woman, no acute distress. SKIN: Focused skin assessment warm/dry. HEAD: Atraumatic. Normocephalic. EYES: Pupils equal and round. No scleral icterus. No injection or drainage. ENT: No nasal bleeding or discharge. Mucous membranes pink and moist. NECK: Trachea midline. No JVD. CARDIOVASCULAR: Regular rate and rhythm. No murmur appreciated. RESPIRATORY: No accessory muscle use. Clear to auscultation. Breath sounds equal bilaterally. GASTROINTESTINAL: Abdomen is flat and soft. Minimal epigastric tenderness. No rebound or guarding. MUSCULOSKELETAL: No obvious deformities. No clubbing. No cyanosis. No edema. NEUROLOGICAL: Awake and alert. No obvious cranial nerve deficits. Motor grossly within normal limits. Normal speech. PSYCHIATRIC: Appropriate mood and affect; insight and judgment normal. Data Data Last Documented VS Vital Signs Date Time Temp Pulse Resp B/P (MAP) Pulse Ox O2 Delivery O2 Flow Rate FiO2 07/25/17 12:11 98.2 103 20 160/85 (110) 96 Orders Orders Complete Blood Count With Diff (07/25/17 12:13) Comprehensive Metabolic Panel (07/25/17 12:13) Urinalysis - C+S If Indicated (07/25/17 12:13) Iv Access Insert/Monitor (07/25/17 12:13) Oxygen Administration (07/25/17 12:13) Oximetry (07/25/17 12:13) Lipase (07/25/17 12:13) Chest, Pa & Lat (07/25/17 ) Electrocardiogram (07/25/17 ) Fluconazole (Diflucan) (07/25/17 15:45) Al-Mag Hy-Si 40-40-4 Mg/Ml Liq (Mag-Al P (07/25/17 15:45) Lidocaine 2% Viscous (Xylocaine 2% Visco (07/25/17 15:45) Labs Laboratory Tests Test 07/25/17 12:42 White Blood Count 4.2 TH/MM3 Red Blood Count 4.50 MIL/MM3 Hemoglobin 14.1 GM/DL Hematocrit 41.5 % Mean Corpuscular Volume 92.1 FL Mean Corpuscular Hemoglobin 31.3 PG Mean Corpuscular Hemoglobin Concent 34.0 % Red Cell Distribution Width 15.7 % Platelet Count 61 TH/MM3 Mean Platelet Volume 9.5 FL Neutrophils (%) (Auto) 62.1 % Lymphocytes (%) (Auto) 27.6 % Monocytes (%) (Auto) 7.5 % Eosinophils (%) (Auto) 2.3 % Basophils (%) (Auto) 0.5 % Neutrophils # (Auto) 2.6 TH/MM3 Lymphocytes # (Auto) 1.1 TH/MM3 Monocytes # (Auto) 0.3 TH/MM3 Eosinophils # (Auto) 0.1 TH/MM3 Basophils # (Auto) 0.0 TH/MM3 CBC Comment AUTO DIFF Differential Comment AUTO DIFF CONFIRMED Platelet Estimate LOW Platelet Morphology Comment NORMAL Ovalocytes 1+ Urine Color YELLOW Urine Turbidity HAZY Urine pH 6.5 Urine Specific [place] 1.028 Urine Protein TRACE mg/dL Urine Glucose (UA) NEG mg/dL Urine Ketones 10 mg/dL Urine Occult Blood NEG Urine Nitrite NEG Urine Bilirubin NEG Urine Urobilinogen 8.0 MG/DL Urine Leukocyte Esterase SMALL Urine RBC 4 /hpf Urine WBC 2 /hpf Urine Squamous Epithelial Cells 10 /hpf Urine Bacteria RARE /hpf Urine Mucus MOD /lpf Microscopic Urinalysis Comment CULT NOT INDICATED Blood Urea Nitrogen 11 MG/DL Creatinine 0.55 MG/DL Random Glucose 108 MG/DL Total Protein 7.1 GM/DL Albumin 3.6 GM/DL Calcium Level 8.6 MG/DL Alkaline Phosphatase 81 U/L Aspartate Amino Transf (AST/SGOT) 32 U/L Alanine Aminotransferase (ALT/SGPT) 31 U/L Total Bilirubin 1.7 MG/DL Sodium Level 146 MEQ/L Potassium Level 3.1 MEQ/L Chloride Level 111 MEQ/L Carbon Dioxide Level 26.7 MEQ/L Anion Gap 8 MEQ/L Estimat Glomerular Filtration Rate 113 ML/MIN Lipase 115 U/L [facility] Medical Decision Making Medical Screen Exam Complete: Yes Emergency Medical Condition: Yes Interpretation(s) My review of EKG: Normal sinus rhythm at a rate of 91, normal axis, normal intervals, no acute ischemia. LABS: CBC is unremarkable. CMP is unremarkable. Lipase is normal. UA is unremarkable. Chest x-ray negative. Differential Diagnosis Gastritis, reflux, esophagitis, other Narrative Course Medical decision making appears a 57-year-old woman who presents to the emergency department complaining of abdominal pain. She has a history of frequent presentation for the same. She started steroids recently which could cause more gastritis. She is on PPI already. Will start her on some sucralfate. She is also worried she may have thrush. I do not see any obvious thrush but is certainly possible with her inhaled steroids. We will give her 1 dose of fluconazole here, recommend outpatient follow-up. Diagnosis Primary Impression: Abdominal pain Additional Instructions: Take Sudafed as prescribed. Continue current medications. Follow-up with her primary doctor. Med/Other Pt SpecificInfo: Prescription(s) given Scripts Sucralfate (Sucralfate) 1 Gram Tab 1 GM PO TID for Duodenal ulcer, #90 TAB 0 Refills on empty stomach Prov: Keegan Monroe MD 07/25/17 Disposition: DISCHARGE HOME Condition: Stable Keegan Monroe MD Jul 25, 2017 15:49
--- NOTE | 2017-07-26 13:49 | EKG ---
Date Performed: 07/25/2017 Time Performed: 15:39:23 PTAGE: 57 years EKG: NORMAL Sinus rhythm Since PREVIOUS TRACING , no significant change noted PREVIOUS TRACIN03/03/2017 04.06 DOCTOR: Eric Murray Interpretating Date/Time 07/26/2017 13:48:02
== END 2017-07-25 16:09 | disposition home or self-care (01) ==
LOC: NEPD 11:30
DX: R10.13 Epigastric pain (principal); K21.9 Gastro-esophageal reflux disease without esophagitis; K74.60 Unspecified cirrhosis of liver; Z72.0 Tobacco use
CPT/HCPCS: 71046; 80053; 81001; 83690; 85025; 93005; 99285

== ENCOUNTER 2017-08-06 18:35 | Emergency (ER) | payer MEDICARE, OTHER ==
[~2017-08-06] VITALS: Ht 162.6 cm; Wt 71.0 kg
[~2017-08-06 18:35] MED LIST changes: +SUCR1TAB PO
[2017-08-06 18:57] VITALS: BP 141/76; PULSE 75; RESP 17; TEMP 98.4; O2SAT 98
[2017-08-06] MEDS ORDERED: RESP: ALBUTEROL 2.5 MG/IPRATROPIUM 0.5 MG NEB (SCH) INH ONE (21:30)
[2017-08-06] MEDS ORDERED: predniSONE 20 MG TAB PO ONE (21:30)
[2017-08-06 21:48] LABS: AUTOMATED NEUTROPHIL # 3.3 TH/MM3 (1.8-7.7); BASOPHIL % 0.5 % (0.0-2.0); EOSINOPHIL # 0.2 TH/MM3 (0-0.4); EOSINOPHIL % 3.1 % (0.0-4.0); HEMATOCRIT 41.1 % (35.0-46.0); HEMOGLOBIN 13.9 GM/DL (11.6-15.3); LYMPH % 30.9 % (9.0-44.0); LYMPHOCYTE # 1.7 TH/MM3 (1.0-4.8); MEAN CELL VOLUME 92.3 FL (80.0-100.0); MEAN CORPUSCULAR HEMOGLOBIN 31.1 PG (27.0-34.0); MEAN CORPUSCULAR HGB CONC 33.7 % (32.0-36.0); MEAN PLATELET VOLUME 9.2 FL (7.0-11.0); MONO % 6.3 % (0.0-8.0); MONOCYTE # 0.4 TH/MM3 (0-0.9); NEUT % 59.2 % (16.0-70.0); PLATELET COUNT 89 TH/MM3 (150-450); RED BLOOD COUNT 4.46 MIL/MM3 (4.00-5.30); RED CELL DISTRIBUTION WIDTH 15.6 % (11.6-17.2); WHITE BLOOD COUNT 5.6 TH/MM3 (4.0-11.0)
--- NOTE | 2017-08-06 21:52 | PD ---
HPI Chief Complaint: Psychiatric Symptoms Time Seen by Provider: 19:22 Travel History International Travel<30 days: No Contact w/Intl Traveler<30days: No Traveled to known affect area: No History of Present Illness HPI 57-year-old female that presents to the ED for evaluation of a [place] act by police. Patient comes here for evaluation of suicidal ideation. Patient reports that she has been feeling depressed as well as anxious secondary to having multiple chronic illnesses. Per patient she has CHF and COPD as well as chronic pain and she is concerned because a lot of family members have from CHF and COPD in her family most recently one of her parents. Discusses a lot of stress and makes her very anxious and feel like she has panic attacks. She is also feeling depressed and feeling like she wants to hurt herself. She denies any other medical issues. She denies any history of mental illness otherwise. She has not been diagnosed with anything psychiatrically. She does have multiple allergies to medication and is of fairly frequent visitor to the ER secondary to chronic abdominal pain. She denies any chest pain or shortness of breath. She does today feel like she is wheezing. She uses inhalers at home. She has no other medical issues at this time. Symptoms ongoing for 3 weeks. PFSH Past Medical History Asthma: Yes Blood Disorders: No Anxiety: Yes Heart Rhythm Problems: No Cancer: Yes (2002 cervical) Cardiovascular Problems: Yes Chemotherapy: Yes (2002) Chest Pain: Yes Congestive Heart Failure: Yes COPD: Yes Cerebrovascular Accident: Yes (2010 thinks has had about 2-3) Diabetes: No Diminished Hearing: No Endocrine: Yes Gastrointestinal Disorders: Yes (Ibs, colitis) GERD: Yes Hepatitis: Yes (HEPATITIS C with tx) Hiatal Hernia: No Hypertension: Yes Immune Disorder: Yes (HEP C FROM BLOOD TRANSFUSION 1974 ) Kidney Stones: Yes Musculoskeletal: Yes (back) Neurologic: Yes (seizures, encephalopathy) Psychiatric: Yes Respiratory: Yes (COPD) Immunizations Current: Yes Migraines: Yes Seizures: Yes Sleep Apnea: No Thyroid Disease: Yes (HYPER (GRAVES)) ?: Unknown Menopausal: Yes : 8 Para: 5 Miscarriage: 3 : 0 Past Surgical History Abdominal Surgery: Yes Body Medical Devices: steel plate in neck, hernia mesh Section: Yes (2) Cholecystectomy: Yes Gynecologic Surgery: Yes Hysterectomy: Yes Joint Replacement: No Other Surgery: Yes (PLATE PLACED IN NECK WITH CERVIAL FUSION) Social History Alcohol Use: No Tobacco Use: Yes Substance Use: No Allergies-Medications (Allergen,Severity, Reaction): Coded Allergies: ciprofloxacin (Verified Allergy, Severe, HIVES, THROAT SWELLING AND DIARRHEA, 04/02/17) diatrizoate meglumine (Verified Allergy, Severe, SWOLLEN, 04/02/17) gadobenic acid (Verified Allergy, Severe, Swelling, 04/02/17) gadodiamide (Verified Allergy, Severe, Swelling, 04/02/17) gadoteridol (Verified Allergy, Severe, Swelling, 04/02/17) iodine (Verified Allergy, Severe, HIVES, THROAT SWELLING, 04/02/17) iodixanol (Verified Allergy, Severe, SWELLIN, 04/02/17) iohexol (Verified Allergy, Severe, Swelling, 04/02/17) ketorolac (Verified Allergy, Severe, HIVES AND THROAT SWELLING, 04/02/17) lisinopril (Verified Allergy, Severe, tongue / throat swelling, 04/02/17) penicillin G (Verified Allergy, Severe, HIVES, THROAT SWELLING, 04/02/17) potassium iodide (Verified Allergy, Severe, HIVES, THROAT SWELLING, ) povidone-iodine (Verified Allergy, Severe, HIVES, THROAT SWELLING, 04/02/17 ) sodium iodide (Verified Allergy, Severe, HIVES, THROAT SWELLING, 04/02/17) sodium iodide (Verified Allergy, Severe, HIVES, THROAT SWELLING, 04/02/17) estradiol (Verified Allergy, Intermediate, hives, 04/02/17) estrogens, conjugated (Verified Allergy, Intermediate, hives, 04/02/17) Reported Meds & Prescriptions Reported Meds & Active Scripts Active Sucralfate 1 Gram Tab 1 Gm PO TID on empty stomach Ventolin Hfa 18 GM Inh (Albuterol Sulfate) 90 Mcg/Act Aer 2 Puff INH Q4-6H PRN Symbicort Inh (Budesonide/Formoterol Fumarate) 160-4.5 Mcg/Act Aero 1 Puff INH Q12HR Albuterol Neb (Albuterol Sulfate) 2.5 Mg/3 Ml Neb 2.5 Mg NEB Q4HR NEB PRN Flomax (Tamsulosin HCl) 0.4 Mg Cap 0.4 Mg PO HS Zofran Odt (Ondansetron Odt) 4 Mg Tab 4 Mg SL Q6HR PRN Reported Tylenol (Acetaminophen) 325 Mg Tab 650 Mg PO Q6H PRN Ibuprofen 200 Mg Cap 600 Mg PO Q8HR PRN Singulair (Montelukast Sodium) 10 Mg Tab 10 Mg PO DAILY Creon (Amylase/Lipase/Protease) 6,000-19,000-30,000 Units Cap 1 Cap PO TIDPC Xifaxan (Rifaximin) 550 Mg Tab 550 Mg PO DAILY Zyrtec (Cetirizine HCl) 10 Mg Tablet 10 Mg PO DAILY Omeprazole 40 Mg Cap 40 Mg PO DAILY Propranolol (Propranolol HCl) 20 Mg Tab 20 Mg PO DAILY Review of Systems Except as stated in HPI: all other systems reviewed are Neg Physical Exam Narrative GENERAL: SKIN: Warm and dry. HEAD: Atraumatic. Normocephalic. EYES: Pupils equal and round. No scleral icterus. No injection or drainage. ENT: No nasal bleeding or discharge. Mucous membranes pink and moist. Tongue is midline. No uvula deviation. NECK: Trachea midline. No JVD. CARDIOVASCULAR: Regular rate and rhythm. No murmurs, S3, S4. RESPIRATORY: No accessory muscle use. wheezing heard in all lung piedra. Breath sounds equal bilaterally. GASTROINTESTINAL: Abdomen soft, non-tender, nondistended. Hepatic and splenic margins not palpable. MUSCULOSKELETAL: Extremities without clubbing, cyanosis, or edema. No obvious deformities. Full range of motion of the upper and lower extremities bilaterally. 2+ pulses bilaterally. NEUROLOGICAL: Awake and alert. No obvious cranial nerve deficits. Motor grossly within normal limits. Five out of 5 muscle strength in the arms and legs. Normal speech. PSYCHIATRIC: Appropriate mood and affect; insight and judgment normal. Data Data Last Documented VS Vital Signs Date Time Temp Pulse Resp B/P (MAP) Pulse Ox O2 Delivery O2 Flow Rate FiO2 08/06/17 18:57 98.4 75 17 141/76 (97) 98 Orders Orders Complete Blood Count With Diff (08/06/17 19:11) Comprehensive Metabolic Panel (08/06/17 19:11) Thyroid Stimulating Hormone (08/06/17 19:11) Psych Screen (08/06/17 19:11) Drug Screen, Random Urine (08/06/17 19:11) Alcohol (Ethanol) (08/06/17 19:11) Salicylates (Aspirin) (08/06/17 19:11) Tylenol (Acetaminophen) (08/06/17 19:11) Albuterol-Ipratropium Neb (Duoneb Neb) (08/06/17 21:30) Prednisone (Deltasone) (08/06/17 21:30) Labs Laboratory Tests Test 08/06/17 21:00 Urine Opiates Screen POS Urine Barbiturates Screen NEG Urine Amphetamines Screen NEG Urine Benzodiazepines Screen NEG Urine Cocaine Screen NEG Urine Cannabinoids Screen NEG MDM Medical Decision Making Medical Screen Exam Complete: Yes Emergency Medical Condition: Yes Medical Record Reviewed: Yes Differential Diagnosis Depression versus suicidal ideation versus anxiety versus adjustment disorder versus mood disorder versus bipolar disorder versus schizophrenia versus paranoid disorder versus psychosis versus substance abuse versus alcohol abuse versus alcohol induced psychosis versus homicidality addition versus cutting versus personality disorder Narrative Course 57-year-old female that presents to the ED for evaluation of psych. Patient was properly examined and was found to have signs and symptoms consistent appears to be psychiatric in nature. No sign of acute medical distress. She does appear to have some wheezing on exam and she does have a history of COPD. She does not appear to be an acute exacerbation we will will give her some breathing treatments as she likely will spend the night here. Patient was given prednisone p.o. as well. Patient will be medically clear. Okay to be seen by psych. Mental health screening was discussed with the patient. Diagnosis Primary Impression: Suicidal ideation Smith Doyle Aug 06, 2017 21:52
[2017-08-06 22:09] LABS: ACETAMINOPHEN LESS THAN 2.0 MCG/ML (10.0-30.0); ALBUMIN 3.6 GM/DL (3.4-5.0); ALKALINE PHOSPHATASE 89 U/L (45-117); ALT (GPT) 31 U/L (10-53); AST (GOT) 31 U/L (15-37); BICARBONATE 26.3 MEQ/L (21.0-32.0); BLOOD UREA NITROGEN 9 MG/DL (7-18); CALCIUM 8.4 MG/DL (8.5-10.1); CHLORIDE 113 MEQ/L (98-107); CREATININE 0.65 MG/DL (0.50-1.00); GLOMERULAR FILTRATION RATE 93 ML/MIN (>89); GLUCOSE,RANDOM 89 MG/DL (74-106); SODIUM (NA) 144 MEQ/L (136-145); TOTAL PROTEIN 7.1 GM/DL (6.4-8.2)
[2017-08-06 22:44] LABS: OVALOCYTES 1+ (NORMAL)
[2017-08-07 01:01] VITALS: BP 141/63; PULSE 81; RESP 18; TEMP 97.5; O2SAT 95
[2017-08-07] MEDS ORDERED: hydrOXYzine PAMOATE 25 MG CAP PO ONE (03:45)
[2017-08-07 06:18] VITALS: BP 111/67; PULSE 86; RESP 18; TEMP 97.5; O2SAT 94
--- NOTE | 2017-08-07 09:44 | PD.PSY.CON ---
Provisional Diagnosis Admission Date [place]. adjustment disorder with mixed disturbance of emotion and conduct, opiate abuse History of Present Illness Service Psychiatry Consult Requested By EDMD Reason for Consult [place] act Primary Care Physician Lisa Nixon MD HPI Patient is a 57-year-old white female comes here under [place] act by the [place] [employer] dated 08/06/17 at 1420 hrs. the judgment reviewed and essentially states on a stated over the past couple hours she has had several suicidal thoughts to include jumping off a bridge and strumming out into the ocean until she drowns on a stated she wanted "to end it all". Patient is seen screened in the ED urine times culture positive for opiates. At the present time patient sitting quietly in her room on J pod nurse Sotero and present throughout session. Patient states she's been under stress the past few weeks to a month or so after allowing her 23-year-old son and his 20-year-old girlfriend to move back into her apartment because they were homeless. This is lead tip partying and some substance use by them some conflict between she and the girlfriend. This is set with her time she is allowed her son to move in with her. Each time she has had to take the 2 young kids out. Patient states she did become more depressed about it and made the suicidal statements. She did have a history of suicide attempt with number of years ago for similar issues. Including misuse of substances including marijuana and cocaine opiates and benzodiazepines. She does not see a psychiatrist at the present time she denies any prior psychiatric hospitalizations. She denies suicidality at this time states she now has a plan for herself. She has her family of origin and her other children living in the [facility]. She states she has a good relationship with them. She states that she will be moving to that area around August 28 of this year. That her local son is aware of this also and seems supportive of it. In any event at the present time patient does not meet Lima act criteria. 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 Though she is oriented in all 4 spheres at times there is a little word searching noted with her. At this time patient Does not meet Lima criteria at this time I'll lift the Lima act, as okay by psych for discharge with medically clear and stable, no Rx by me, refer patient to counseling in the community Review of Systems Except as stated in HPI: all other systems reviewed are Neg Past Family Social History Coded Allergies: ciprofloxacin (Verified Allergy, Severe, HIVES, THROAT SWELLING AND DIARRHEA, 04/02/17) diatrizoate meglumine (Verified Allergy, Severe, SWOLLEN, 04/02/17) gadobenic acid (Verified Allergy, Severe, Swelling, 04/02/17) gadodiamide (Verified Allergy, Severe, Swelling, 04/02/17) gadoteridol (Verified Allergy, Severe, Swelling, 04/02/17) iodine (Verified Allergy, Severe, HIVES, THROAT SWELLING, 04/02/17) iodixanol (Verified Allergy, Severe, SWELLIN, 04/02/17) iohexol (Verified Allergy, Severe, Swelling, 04/02/17) ketorolac (Verified Allergy, Severe, HIVES AND THROAT SWELLING, 04/02/17) lisinopril (Verified Allergy, Severe, tongue / throat swelling, 04/02/17) penicillin G (Verified Allergy, Severe, HIVES, THROAT SWELLING, 04/02/17) potassium iodide (Verified Allergy, Severe, HIVES, THROAT SWELLING, ) povidone-iodine (Verified Allergy, Severe, HIVES, THROAT SWELLING, 04/02/17 ) sodium iodide (Verified Allergy, Severe, HIVES, THROAT SWELLING, 04/02/17) sodium iodide (Verified Allergy, Severe, HIVES, THROAT SWELLING, 04/02/17) estradiol (Verified Allergy, Intermediate, hives, 04/02/17) estrogens, conjugated (Verified Allergy, Intermediate, hives, 04/02/17) Active Scripts Sucralfate (Sucralfate) 1 Gram Tab, 1 GM PO TID for Duodenal ulcer, #90 TAB 0 Refills on empty stomach Prov:Keegan Monroe MD 07/25/17 Albuterol 18 GM Inh (Ventolin Hfa 18 GM Inh) 90 Mcg/Act Aer, 2 PUFF INH Q4-6H Y for SHORTNESS OF BREATH, #1 INHALER 0 Refills Prov:Comfort Ang 04/02/17 Budesonide-Formoterol Inh (Symbicort Inh) 160-4.5 Mcg/Act Aero, 1 PUFF INH Q12HR , #1 INHALER 0 Refills Prov:Comfort Ang Ann THERMIT WELDING MACHINE OPERATOR 04/02/17 Albuterol Neb (Albuterol Neb) 2.5 Mg/3 Ml Neb, 2.5 MG NEB Q4HR NEB Y for SHORTNESS OF BREATH, #180 NEBULE 0 Refills Prov:Comfort Ang Ann THERMIT WELDING MACHINE OPERATOR 04/02/17 Tamsulosin (Flomax) 0.4 Mg Cap, 0.4 MG PO HS for Manage Prostate Problems, #10 CAP 0 Refills Prov:Mika Shabazz MD 03/29/17 Ondansetron Odt (Zofran Odt) 4 Mg Tab, 4 MG SL Q6HR Y for Nausea/Vomiting, #30 TAB 0 Refills Prov:Suly Bravo DO 02/18/17 Reported Medications Acetaminophen (Tylenol) 325 Mg Tab, 650 MG PO Q6H Y for MILD PAIN/FEVER, TAB 0 Refills 04/10/17 Ibuprofen (Ibuprofen) 200 Mg Cap, 600 MG PO Q8HR Y for MILD PAIN/FEVER, CAP 0 Refills 04/10/17 Montelukast (Singulair) 10 Mg Tab, 10 MG PO DAILY for Allergies, #30 TAB 0 Refills 04/10/17 Pancrelipase (Creon) 6,000-19,000-30,000 Units Cap, 1 CAP PO TIDPC for Digestive Aid, #90 CAP 0 Refills 03/14/17 Rifaximin (Xifaxan) 550 Mg Tab, 550 MG PO DAILY for Hepatic encephalopathy, #60 TAB 0 Refills 02/03/17 Cetirizine HCl (Zyrtec) 10 Mg Tablet, 10 MG PO DAILY 01/13/17 Omeprazole (Omeprazole) 40 Mg Cap, 40 MG PO DAILY, #30 CAP 0 Refills 01/13/17 Propranolol (Propranolol) 20 Mg Tab, 20 MG PO DAILY, #60 TAB 0 Refills 04/12/16 Social History Patient is single has served 23-year-old son and is 20-year-old girlfriend living with her. Patient has other adult children and family of origin in the [place] area Patient's Strengths (min. 2) Patient verbal irritable exercise health care is cooperative Physical Exam Patient medically cleared ED Vital Signs Vital Signs Date Time Temp Pulse Resp B/P (MAP) Pulse Ox O2 Delivery O2 Flow Rate FiO2 08/07/17 06:18 97.5 86 18 111/67 (82) 94 Room Air Lab Results Test 08/06/17 21:00 White Blood Count 5.6 TH/MM3 Red Blood Count 4.46 MIL/MM3 Hemoglobin 13.9 GM/DL Hematocrit 41.1 % Mean Corpuscular Volume 92.3 FL Mean Corpuscular Hemoglobin 31.1 PG Mean Corpuscular Hemoglobin Concent 33.7 % Red Cell Distribution Width 15.6 % Platelet Count 89 TH/MM3 Mean Platelet Volume 9.2 FL Neutrophils (%) (Auto) 59.2 % Lymphocytes (%) (Auto) 30.9 % Monocytes (%) (Auto) 6.3 % Eosinophils (%) (Auto) 3.1 % Basophils (%) (Auto) 0.5 % Neutrophils # (Auto) 3.3 TH/MM3 Lymphocytes # (Auto) 1.7 TH/MM3 Monocytes # (Auto) 0.4 TH/MM3 Eosinophils # (Auto) 0.2 TH/MM3 Basophils # (Auto) 0.0 TH/MM3 CBC Comment AUTO DIFF Differential Comment AUTO DIFF CONFIRMED Platelet Estimate LOW Platelet Morphology Comment NORMAL Ovalocytes 1+ Blood Urea Nitrogen 9 MG/DL Creatinine 0.65 MG/DL Random Glucose 89 MG/DL Total Protein 7.1 GM/DL Albumin 3.6 GM/DL Calcium Level 8.4 MG/DL Alkaline Phosphatase 89 U/L Aspartate Amino Transf (AST/SGOT) 31 U/L Alanine Aminotransferase (ALT/SGPT) 31 U/L Total Bilirubin 2.0 MG/DL Sodium Level 144 MEQ/L Potassium Level 3.6 MEQ/L Chloride Level 113 MEQ/L Carbon Dioxide Level 26.3 MEQ/L Anion Gap 5 MEQ/L Estimat Glomerular Filtration Rate 93 ML/MIN Thyroid Stimulating Hormone 3rd Gen 0.948 uIU/ML Salicylates Level LESS THAN 1.7 MG/DL Urine Opiates Screen POS Acetaminophen Level LESS THAN 2.0 MCG/ML Urine Barbiturates Screen NEG Urine Amphetamines Screen NEG Urine Benzodiazepines Screen NEG Urine Cocaine Screen NEG Urine Cannabinoids Screen NEG Ethyl Alcohol Level LESS THAN 3 MG/DL Mental Status Examination Appearance: Appropriate Consciousness: Alert Orientation: Person, Place, Date/Time Motor Activity: Normal gait Speech: Unremarkable (some vague word seeking) Language: Adequate Fund of Knowledge: Adequate Attention and Concentration: Other (fair) Memory: Unremarkable Mood: Other (euthymic to mildly dysphoric) Affect: Other (good range and intensity) Thought Process & Associations: Intact, Logical Thought Content: Appropriate Hallucination Type: None Delusion Type: None Suicidal Ideation: No (patient denies able contracted to no harm) Suicidal Plan: No Suicidal Intention: No Homicidal Ideation: No Homicidal Intention: No Insight: Adequate Judgment: Adequate Assessment & Plan Problem List: (1) Adjustment disorder with mixed disturbance of emotions and conduct ICD Codes: F43.25 - Adjustment disorder with mixed disturbance of emotions and conduct (2) Opiate abuse, episodic ICD Codes: F11.10 - Opioid abuse, uncomplicated Assessment & Plan Estimated LOS: days patient does not meet Lima criteria will lift [place] act as okay by psych for discharge with medically clear and stable. The been no Rx by me. Strong recommendation for counseling of the community. Patient able contracted to no harm. Request HC Surrog/Guard Advoc?: No (See above) Ze Vila MD Aug 07, 2017 09:44
--- NOTE | 2017-08-07 10:28 | PD ---
Physical Exam Date Seen by Provider: Aug 07, 2017 Time Seen by Provider: 10:26 Narrative 57-year-old female previously [place] acted and medically cleared for psychiatric evaluation secondary to suicidal ideation, has been seen and evaluated by psychiatric staff and deemed to be psychiatrically stable for discharge at this time. Patient remains medically stable for discharge. Psychiatric follow-up will be based on the psychiatric note. Data Data Last Documented VS Vital Signs Date Time Temp Pulse Resp B/P (MAP) Pulse Ox O2 Delivery O2 Flow Rate FiO2 08/07/17 06:18 97.5 86 18 111/67 (82) 94 Room Air Orders Orders Complete Blood Count With Diff (08/06/17 19:11) Comprehensive Metabolic Panel (08/06/17 19:11) Thyroid Stimulating Hormone (08/06/17 19:11) Psych Screen (08/06/17 19:11) Drug Screen, Random Urine (08/06/17 19:11) Alcohol (Ethanol) (08/06/17 19:11) Salicylates (Aspirin) (08/06/17 19:11) Tylenol (Acetaminophen) (08/06/17 19:11) Albuterol-Ipratropium Neb (Duoneb Neb) (08/06/17 21:30) Prednisone (Deltasone) (08/06/17 21:30) Hydroxyzine Pamoate (Vistaril) (08/07/17 03:45) Diet Regular Basic (08/07/17 Breakfast) Labs Laboratory Tests Test 08/06/17 21:00 White Blood Count 5.6 TH/MM3 Red Blood Count 4.46 MIL/MM3 Hemoglobin 13.9 GM/DL Hematocrit 41.1 % Mean Corpuscular Volume 92.3 FL Mean Corpuscular Hemoglobin 31.1 PG Mean Corpuscular Hemoglobin Concent 33.7 % Red Cell Distribution Width 15.6 % Platelet Count 89 TH/MM3 Mean Platelet Volume 9.2 FL Neutrophils (%) (Auto) 59.2 % Lymphocytes (%) (Auto) 30.9 % Monocytes (%) (Auto) 6.3 % Eosinophils (%) (Auto) 3.1 % Basophils (%) (Auto) 0.5 % Neutrophils # (Auto) 3.3 TH/MM3 Lymphocytes # (Auto) 1.7 TH/MM3 Monocytes # (Auto) 0.4 TH/MM3 Eosinophils # (Auto) 0.2 TH/MM3 Basophils # (Auto) 0.0 TH/MM3 CBC Comment AUTO DIFF Differential Comment AUTO DIFF CONFIRMED Platelet Estimate LOW Platelet Morphology Comment NORMAL Ovalocytes 1+ Blood Urea Nitrogen 9 MG/DL Creatinine 0.65 MG/DL Random Glucose 89 MG/DL Total Protein 7.1 GM/DL Albumin 3.6 GM/DL Calcium Level 8.4 MG/DL Alkaline Phosphatase 89 U/L Aspartate Amino Transf (AST/SGOT) 31 U/L Alanine Aminotransferase (ALT/SGPT) 31 U/L Total Bilirubin 2.0 MG/DL Sodium Level 144 MEQ/L Potassium Level 3.6 MEQ/L Chloride Level 113 MEQ/L Carbon Dioxide Level 26.3 MEQ/L Anion Gap 5 MEQ/L Estimat Glomerular Filtration Rate 93 ML/MIN Thyroid Stimulating Hormone 3rd Gen 0.948 uIU/ML Salicylates Level LESS THAN 1.7 MG/DL Urine Opiates Screen POS Acetaminophen Level LESS THAN 2.0 MCG/ML Urine Barbiturates Screen NEG Urine Amphetamines Screen NEG Urine Benzodiazepines Screen NEG Urine Cocaine Screen NEG Urine Cannabinoids Screen NEG Ethyl Alcohol Level LESS THAN 3 MG/DL [facility] Medical Record Reviewed: Yes Supervised Visit with NELL: Yes Narrative Course 57-year-old female previously L[place] acted and medically cleared for psychiatric evaluation secondary to suicidal ideation, has been seen and evaluated by psychiatric staff and deemed to be psychiatrically stable for discharge at this time. Patient remains medically stable for discharge. Psychiatric follow-up will be based on the psychiatric note. Diagnosis Primary Impression: Suicidal ideation Patient Instructions: General Instructions Disposition: 01 DISCHARGE HOME Condition: Stable Juan Ibarra Aug 07, 2017 10:28
== END 2017-08-07 11:29 | disposition home or self-care (01) ==
LOC: NEPJ 18:35
DX: R45.851 Suicidal ideations (principal); J44.9 Chronic obstructive pulmonary disease, unspecified; K21.9 Gastro-esophageal reflux disease without esophagitis; I11.0 Hypertensive heart disease with heart failure; I50.9 Heart failure, unspecified; Z72.0 Tobacco use; Z79.899 Other long term (current) drug therapy
CPT/HCPCS: 80053; 80307; 84443; 85025; 94664; 99283; J7512; Q0177

== ENCOUNTER 2017-08-07 22:33 | Observation (INO) | payer MEDICARE, MEDICAID ==
[~2017-08-07] VITALS: Ht 170.2 cm; Wt 65.0 kg
[2017-08-07 22:38] VITALS: BP 143/79; PULSE 96; RESP 16; TEMP 98.7; O2SAT 97
[2017-08-07 22:42] VITALS: BP 143/79; PULSE 97; RESP 18; TEMP 98.7; O2SAT 97
--- NOTE | 2017-08-07 22:54 | PD ---
HPI Chief Complaint: General Weakness Time Seen by Provider: 22:50 Travel History International Travel<30 days: No Contact w/Intl Traveler<30days: No Traveled to known affect area: No History of Present Illness HPI 57-year-old female with history of COPD, chronic back pain, hepatitis C, presents via EMS for evaluation of weakness. The patient reports that she had a family member in [place] 1 month ago. She reports that she went to [place] for this reason. She reports that she had a respiratory tract infection while she was there and she was put on an antibiotic. She reports over the past month she has had generalized weakness, increased fatigue, loss of appetite. She has had nausea, diarrhea for the past month with approximately 3-4 episodes of watery stool a day. She has also had foul- smelling urine and lower abdominal pain. She reports that now over the past few days she has developed weakness in her lower extremities. Today she felt like her legs cannot hold her and so she called EMS for further evaluation. She reports that over the past 2-3 weeks she has developed urinary incontinence. She does report a history of chronic back pain for which she was prescribed morphine 15 mg, she reports that she took 2 doses today. She has had occasional chills but denies objective fevers. She denies saddle anesthesia. Of note this patient was just seen here yesterday for psychiatric evaluation. She has been seen here several times in the past for various complaints of abdominal pain, COPD exacerbation, ureteral colic. She has no other complaints at this time. PFSH Past Medical History Asthma: Yes Blood Disorders: No Anxiety: Yes Heart Rhythm Problems: No Cancer: Yes (2002 cervical) Cardiovascular Problems: Yes Chemotherapy: Yes (2002) Chest Pain: Yes Congestive Heart Failure: Yes COPD: Yes Cerebrovascular Accident: Yes (2010 thinks has had about 2-3) Diabetes: No Diminished Hearing: No Endocrine: Yes Gastrointestinal Disorders: Yes (Ibs, colitis) GERD: Yes Hepatitis: Yes (HEPATITIS C with tx) Hiatal Hernia: No Hypertension: Yes Immune Disorder: Yes (HEP C FROM BLOOD TRANSFUSION 1974 ) Kidney Stones: Yes Musculoskeletal: Yes (back) Neurologic: Yes (seizures, encephalopathy) Psychiatric: Yes Respiratory: Yes (COPD) Immunizations Current: Yes Migraines: Yes Seizures: Yes Sleep Apnea: No Thyroid Disease: Yes (HYPER (GRAVES)) ?: Not Menopausal: Yes : 8 Para: 5 Miscarriage: 3 : 0 Past Surgical History Abdominal Surgery: Yes Body Medical Devices: steel plate in neck, hernia mesh Section: Yes (2) Cholecystectomy: Yes Gynecologic Surgery: Yes Hysterectomy: Yes Joint Replacement: No Other Surgery: Yes (PLATE PLACED IN NECK WITH CERVIAL FUSION) Social History Alcohol Use: No Tobacco Use: Yes Substance Use: No Allergies-Medications (Allergen,Severity, Reaction): Coded Allergies: ciprofloxacin (Verified Allergy, Severe, HIVES, THROAT SWELLING AND DIARRHEA, 04/02/17) diatrizoate meglumine (Verified Allergy, Severe, SWOLLEN, 04/02/17) gadobenic acid (Verified Allergy, Severe, Swelling, 04/02/17) gadodiamide (Verified Allergy, Severe, Swelling, 04/02/17) gadoteridol (Verified Allergy, Severe, Swelling, 04/02/17) iodine (Verified Allergy, Severe, HIVES, THROAT SWELLING, 04/02/17) iodixanol (Verified Allergy, Severe, SWELLIN, 04/02/17) iohexol (Verified Allergy, Severe, Swelling, 04/02/17) ketorolac (Verified Allergy, Severe, HIVES AND THROAT SWELLING, 04/02/17) lisinopril (Verified Allergy, Severe, tongue / throat swelling, 04/02/17) penicillin G (Verified Allergy, Severe, HIVES, THROAT SWELLING, 04/02/17) potassium iodide (Verified Allergy, Severe, HIVES, THROAT SWELLING, ) povidone-iodine (Verified Allergy, Severe, HIVES, THROAT SWELLING, 04/02/17 ) sodium iodide (Verified Allergy, Severe, HIVES, THROAT SWELLING, 04/02/17) sodium iodide (Verified Allergy, Severe, HIVES, THROAT SWELLING, 04/02/17) estradiol (Verified Allergy, Intermediate, hives, 04/02/17) estrogens, conjugated (Verified Allergy, Intermediate, hives, 04/02/17) Reported Meds & Prescriptions Reported Meds & Active Scripts Active Sucralfate 1 Gram Tab 1 Gm PO TID on empty stomach Ventolin Hfa 18 GM Inh (Albuterol Sulfate) 90 Mcg/Act Aer 2 Puff INH Q4-6H PRN Symbicort Inh (Budesonide/Formoterol Fumarate) 160-4.5 Mcg/Act Aero 1 Puff INH Q12HR Albuterol Neb (Albuterol Sulfate) 2.5 Mg/3 Ml Neb 2.5 Mg NEB Q4HR NEB PRN Flomax (Tamsulosin HCl) 0.4 Mg Cap 0.4 Mg PO HS Zofran Odt (Ondansetron Odt) 4 Mg Tab 4 Mg SL Q6HR PRN Reported Tylenol (Acetaminophen) 325 Mg Tab 650 Mg PO Q6H PRN Ibuprofen 200 Mg Cap 600 Mg PO Q8HR PRN Singulair (Montelukast Sodium) 10 Mg Tab 10 Mg PO DAILY Creon (Amylase/Lipase/Protease) 6,000-19,000-30,000 Units Cap 1 Cap PO TIDPC Xifaxan (Rifaximin) 550 Mg Tab 550 Mg PO DAILY Zyrtec (Cetirizine HCl) 10 Mg Tablet 10 Mg PO DAILY Omeprazole 40 Mg Cap 40 Mg PO DAILY Propranolol (Propranolol HCl) 20 Mg Tab 20 Mg PO DAILY Review of Systems Except as stated in HPI: all other systems reviewed are Neg Physical Exam Narrative GENERAL: This is a well-developed well-nourished female who is somewhat drowsy but arousable to verbal stimuli. SKIN: Warm and dry. HEAD: Atraumatic. Normocephalic. EYES: Pupils equal and round. No scleral icterus. No injection or drainage. ENT: No nasal bleeding or discharge. Mucous membranes pink and moist. NECK: Trachea midline. No JVD. CARDIOVASCULAR: Regular rate and rhythm. No murmur appreciated. RESPIRATORY: No accessory muscle use. faint wheezing. GASTROINTESTINAL: Abdomen soft, tender to palpation in the lower quadrant without guarding. Surgical incision noted to the lower abdominal wall. MUSCULOSKELETAL: No obvious deformities. Patient has approximately 3 out of 5 muscle strength in dorsi and plantar flexion bilaterally. 4 out of 5 muscle strength on leg flexion and extension and hip flexion bilaterally. 2+ patellar reflex bilaterally. Distal pulses are intact. NEUROLOGICAL: Drowsy but arousable to verbal stimuli.. No obvious cranial nerve deficits. Motor grossly within normal limits. Normal speech. PSYCHIATRIC: Appropriate mood and affect; insight and judgment normal. Data Data Last Documented VS Vital Signs Date Time Temp Pulse Resp B/P (MAP) Pulse Ox O2 Delivery O2 Flow Rate FiO2 08/08/17 03:00 81 16 141/88 (105) 97 Nasal Cannula 2.00 08/07/17 22:42 98.7 Orders Orders Complete Blood Count With Diff (08/07/17 22:51) Comprehensive Metabolic Panel (08/07/17 22:51) Lipase (08/07/17 22:51) Lactic Acid (08/07/17 22:51) Urinalysis - C+S If Indicated (08/07/17 22:51) Ct Abd/Pel W/O Iv Contrast (08/07/17 22:51) Iv Access Insert/Monitor (08/07/17 22:51) Ecg Monitoring (08/07/17 22:51) Oximetry (08/07/17 22:51) Sodium Chloride 0.9% Flush (Ns Flush) (08/07/17 23:00) Electrocardiogram (08/07/17 22:51) Mri T Spine W/O Contrast (08/07/17 ) Mri L Spine W/O Contrast (08/07/17 ) C Diff Toxin Pcr (08/07/17 22:54) Enteric Path (Stool) (08/07/17 22:54) Admit Order (Ed Use Only) (08/08/17 ) Vital Signs (Adult) Q4H (08/08/17 03:59) Activity Bed Rest (08/08/17 03:59) Notify Dr: Other (08/08/17 03:59) Labs Laboratory Tests Test 08/07/17 00:22 08/08/17 01:10 White Blood Count 10.1 TH/MM3 Red Blood Count 4.37 MIL/MM3 Hemoglobin 13.7 GM/DL Hematocrit 39.6 % Mean Corpuscular Volume 90.7 FL Mean Corpuscular Hemoglobin 31.4 PG Mean Corpuscular Hemoglobin Concent 34.7 % Red Cell Distribution Width 15.8 % Platelet Count 108 TH/MM3 Mean Platelet Volume 9.2 FL Neutrophils (%) (Auto) 78.2 % Lymphocytes (%) (Auto) 14.4 % Monocytes (%) (Auto) 6.4 % Eosinophils (%) (Auto) 0.6 % Basophils (%) (Auto) 0.4 % Neutrophils # (Auto) 7.9 TH/MM3 Lymphocytes # (Auto) 1.4 TH/MM3 Monocytes # (Auto) 0.6 TH/MM3 Eosinophils # (Auto) 0.1 TH/MM3 Basophils # (Auto) 0.0 TH/MM3 CBC Comment DIFF FINAL Differential Comment Blood Urea Nitrogen 12 MG/DL Creatinine 0.65 MG/DL Random Glucose 87 MG/DL Total Protein 6.8 GM/DL Albumin 3.6 GM/DL Calcium Level 8.5 MG/DL Alkaline Phosphatase 83 U/L Aspartate Amino Transf (AST/SGOT) 36 U/L Alanine Aminotransferase (ALT/SGPT) 28 U/L Total Bilirubin 1.6 MG/DL Sodium Level 146 MEQ/L Potassium Level 3.3 MEQ/L Chloride Level 110 MEQ/L Carbon Dioxide Level 26.8 MEQ/L Anion Gap 9 MEQ/L Estimat Glomerular Filtration Rate 93 ML/MIN Lactic Acid Level 1.1 mmol/L Lipase 104 U/L Urine Color YELLOW Urine Turbidity HAZY Urine pH 6.0 Urine Specific [place] 1.025 Urine Protein TRACE mg/dL Urine Glucose (UA) NEG mg/dL Urine Ketones 10 mg/dL Urine Occult Blood NEG Urine Nitrite NEG Urine Bilirubin NEG Urine Urobilinogen 2.0 MG/DL Urine Leukocyte Esterase NEG Urine RBC 1 /hpf Urine WBC 1 /hpf Urine Squamous Epithelial Cells 1 /hpf Urine Hyaline Casts 2 /lpf Urine Mucus FEW /lpf Microscopic Urinalysis Comment CULT NOT INDICATED MDM Medical Decision Making Medical Screen Exam Complete: Yes Emergency Medical Condition: Yes Medical Record Reviewed: Yes Differential Diagnosis Medication side effect versus spinal stenosis versus cauda equina versus cystitis versus pyelonephritis versus renal calculi Narrative Course The patient was placed on ECG monitoring pulse oximetry. Lab work, CT abdomen and pelvis, urinalysis ordered. Given the patient's new lower extremity weakness, urinary incontinence, MRIs of the thoracic and lumbar spine of been ordered. 2300: At the end of my shift the patient was signed out to Dr. Butler pending lab work and imaging studies. Paulino Rivera Aug 07, 2017 22:53
[2017-08-07] MEDS ORDERED: SODIUM CHLORIDE 0.9% FLUSH 10 ML FLUSH IV FLUSH PRN (23:00)
--- NOTE | 2017-08-07 23:38 | RADRPT ---
EXAM DATE/TIME: 08/07/2017 23:07 [facility] COMPARISON: CT ABDOMEN & PELVIS W/O CONTRAST, April 10, 2017, 14:58. INDICATIONS : Abdominal discomfort with dysuria. ORAL CONTRAST: No oral contrast ingested. RADIATION DOSE: 5.25 CTDIvol (mGy) MEDICAL HISTORY : Hepatitis C. Hypertension. Gastroesophageal reflux disease.Colitis. SURGICAL HISTORY : Cholecystectomy. Hysterectomy. ENCOUNTER: Initial ACUITY: 1 week PAIN SCALE: 3/10 LOCATION: Abdomen. TECHNIQUE: Volumetric scanning of the abdomen and pelvis was performed. Using automated exposure control and ad justment of the mA and/or kV according to patient size, radiation dose was kept as low as reasonably achievable to obtain optimal diagnostic quality images. DICOM format image data is available electro nically for review and comparison. FINDINGS: LOWER LUNGS: The visualized lower lungs are clear. LIVER: Nodular contour without lesion. There is no dilation of the biliary tree. Cholecystectomy clips. The re are some collateral vessels including recannulization of the umbilical vein. No ascites. SPLEEN: Normal size without lesion. PANCREAS: Within normal limits. KIDNEYS: Normal in size and shape. There is no mass, stone, or hydronephrosis. Punctate nonobstructing upper pole right renal calculus measures 1 mm. In ADRENAL GLANDS: Within normal limits. VASCULAR: There is no aortic aneurysm. BOWEL/MESENTERY: The stomach, small bowel, and colon demonstrate no acute abnormality. There is no free intraperitone al air or fluid. ABDOMINAL WALL: Within normal limits. RETROPERITONEUM: There is no lymphadenopathy. BLADDER: No wall thickening or mass. REPRODUCTIVE: Within normal limits. INGUINAL: There is no lymphadenopathy or hernia. MUSCULOSKELETAL: Within normal limits for patient age. CONCLUSION: 1. Punctate nonobstructing right renal calculus. 2. Cirrhotic liver with portal hypertension. Serafin Chilel MD on August 07, 2017 at 23:33 Board Certified Radiologist. This report was verified electronically.
--- NOTE | 2017-08-08 00:07 | RADRPT ---
EXAM DATE/TIME: 08/07/2017 23:26 [facility] COMPARISON: No previous studies available for comparison. INDICATIONS : Myelopathy. Mid back pain. MEDICAL HISTORY : Renal calculi. Hypertension. Cervical cancer in 2004 SURGICAL HISTORY : Hysterectomy. Cholecystectomy. Fusion, cervical. Hernia sx. ENCOUNTER: Initial ACUITY: 7-11 months PAIN SCORE: 6/10 LOCATION: Right mid back. TECHNIQUE: Multiplanar multisequence MRI of the thoracic spine was performed. FINDINGS: VERTEBRA: Normal vertebral body height. Homogeneous marrow signal. ALIGNMENT: Normal. CORD: Normal position and configuration. T1-T2: Normal. T2-T3: Mild bibasilar bulge abuts the thecal sac. No canal stenosis.. T3-T4: The thecal sac has a normal diameter. No evidence of disc bulge or protrusion. T4-T5: The thecal sac has a normal diameter. No evidence of disc bulge or protrusion. T5-T6: The thecal sac has a normal diameter. No evidence of disc bulge or protrusion. T6-T7: The thecal sac has a normal diameter. No evidence of disc bulge or protrusion. T7-T8: The thecal sac has a normal diameter. No evidence of disc bulge or protrusion. T8-T9: The thecal sac has a normal diameter. No evidence of disc bulge or protrusion. T9-T10: The thecal sac has a normal diameter. No evidence of disc bulge or protrusion. T10-T11: The thecal sac has a normal diameter. No evidence of disc bulge or protrusion. T11-T12: The thecal sac has a normal diameter. No evidence of disc bulge or protrusion. T12-L1: The thecal sac has a normal diameter. No evidence of disc bulge or protrusion. CONCLUSION: 1. Thoracic spinal cord is unremarkable. 2. Mild broad-based disc bulge T2-T3 without canal stenosis. Serafin Chilel MD on August 08, 2017 at 0:03 Board Certified Radiologist. This report was verified electronically.
--- NOTE | 2017-08-08 00:12 | RADRPT ---
EXAM DATE/TIME: 08/07/2017 23:26 [facility] COMPARISON: No previous studies available for comparison. INDICATIONS : Myelopathy. MEDICAL HISTORY : Hypertension. Renal calculi. Cervical cancer 2004 SURGICAL HISTORY : Hysterectomy. Cholecystectomy. Fusion, cervical. Hernia sx. ENCOUNTER: Initial ACUITY: 7-11 months PAIN SCORE: 7/10 LOCATION: Right lower back. TECHNIQUE: Multiplanar multisequence MRI of the lumbar spine was performed without contrast. FINDINGS: The most caudal appearing lumbar vertebra is numbered as L5. VERTEBRAE: Homogeneous signal. Anterolisthesis L5 on S1. Degenerative disc disease at L4-5. Diffuse disc desicca tion. CONUS: Normal level and configuration. T12-L1: The thecal sac has a normal diameter. No evidence of disc bulge or protrusion. The neural foramina are patent bilaterally. L1-L2: Gigjo-yc-bsllnjoq left-sided protrusion abuts the left L2 nerve root in the lateral recess. No canal stenosis.. The neural foramina are patent bilaterally. L2-L3: Mild broad-based disc bulge abuts the thecal sac and abuts both L3 nerve roots lateral recesses. No c anal stenosis. The neural foramina are patent bilaterally. L3-L4: Mild broad-based disc bulge abuts the thecal sac and abuts both L4 nerve roots lateral recesses. No c anal stenosis. The neural foramina are patent bilaterally. L4-L5: Mild broad-based disc bulge abuts the ventral thecal sac and abuts both L5 nerve roots lateral recess es. In conjunction with moderate facet arthropathy/ligamentum flavum thickening causes mild canal ana nosis. Mild narrowing left neural foramen. Severe narrowing of the right neural foramen L5-S1: Grade 1 spondylolisthesis. Mild facet arthropathy. Mild neural foraminal narrowing bilaterally. CONCLUSION: 1. Left-sided protrusion L1-2 without canal stenosis. 2. Multilevel disc bulges including L2-3, L3-4 levels without canal stenosis. 3. Distal to L4-L5 in conjunction with hypertrophic facets cause mild canal stenosis. 4. Grade 1 spondylolisthesis L5 on S1. 5. Scattered facet arthropathy and neural femoral narrowing as described above. Serafin Chilel MD on August 08, 2017 at 0:07 Board Certified Radiologist. This report was verified electronically.
[2017-08-08 00:47] LABS: AUTOMATED NEUTROPHIL # 7.9 TH/MM3 (1.8-7.7); BASOPHIL % 0.4 % (0.0-2.0); EOSINOPHIL # 0.1 TH/MM3 (0-0.4); EOSINOPHIL % 0.6 % (0.0-4.0); HEMATOCRIT 39.6 % (35.0-46.0); HEMOGLOBIN 13.7 GM/DL (11.6-15.3); LYMPH % 14.4 % (9.0-44.0); LYMPHOCYTE # 1.4 TH/MM3 (1.0-4.8); MEAN CELL VOLUME 90.7 FL (80.0-100.0); MEAN CORPUSCULAR HEMOGLOBIN 31.4 PG (27.0-34.0); MEAN CORPUSCULAR HGB CONC 34.7 % (32.0-36.0); MEAN PLATELET VOLUME 9.2 FL (7.0-11.0); MONO % 6.4 % (0.0-8.0); MONOCYTE # 0.6 TH/MM3 (0-0.9); NEUT % 78.2 % (16.0-70.0); PLATELET COUNT 108 TH/MM3 (150-450); RED BLOOD COUNT 4.37 MIL/MM3 (4.00-5.30); RED CELL DISTRIBUTION WIDTH 15.8 % (11.6-17.2); WHITE BLOOD COUNT 10.1 TH/MM3 (4.0-11.0)
[2017-08-08 01:01] LABS: ALKALINE PHOSPHATASE 83 U/L (45-117); TOTAL BILIRUBIN ADULT 1.6 MG/DL (0.2-1.0); TOTAL PROTEIN 6.8 GM/DL (6.4-8.2)
[2017-08-08 01:13] LABS: ALBUMIN 3.6 GM/DL (3.4-5.0); ALT (GPT) 28 U/L (10-53); AST (GOT) 36 U/L (15-37); BICARBONATE 26.8 MEQ/L (21.0-32.0); BLOOD UREA NITROGEN 12 MG/DL (7-18); CALCIUM 8.5 MG/DL (8.5-10.1); CHLORIDE 110 MEQ/L (98-107); CREATININE 0.65 MG/DL (0.50-1.00); GLOMERULAR FILTRATION RATE 93 ML/MIN (>89); GLUCOSE,RANDOM 87 MG/DL (74-106); SODIUM (NA) 146 MEQ/L (136-145)
[2017-08-08 01:35] LABS: BILIRUBIN, URINE NEG (NEG); BLOOD, URINE NEG (NEG); GLUCOSE,URINE NEG (NEG); HYALINE CAST, URINE 2 /lpf (RARE); KETONE, URINE 10 mg/dL (NEG); MUCUS URINE FEW /lpf (OCC); NITRITE,URINE NEG (NEG); SQUAMOUS EPITHELIAL CELL URINE 1 /hpf (0-5); URINE COLOR YELLOW (YELLW/STRAW); URINE LEUKOCYTE ESTERASE NEG (NEG)
[2017-08-08 03:00] VITALS: BP 141/88; PULSE 81; RESP 16; O2SAT 97
[2017-08-08] MEDS ORDERED: ACETAMINOPHEN 325 MG TAB PO PRN ×2 (04:15→18:30)
[2017-08-08] MEDS ORDERED: LACTULOSE SYRUP 20 GM/30 ML CUP PO PRN (04:15)
[2017-08-08] MEDS ORDERED: SENNOSIDES 8.6 MG TAB PO PRN (04:15)
[2017-08-08] MEDS ORDERED: NALOXONE HCL 0.4 MG/ML AMP IV PUSH PRN (04:15)
[2017-08-08] MEDS ORDERED: SODIUM CHLORIDE 0.9% FLUSH 10 ML FLUSH IV FLUSH PRN (04:15)
[2017-08-08] MEDS ORDERED: MAGNESIUM HYDROXIDE SUSP 30 ML CUP PO PRN (04:15)
[2017-08-08] MEDS ORDERED: BISACODYL 10 MG SUPP RECTAL PRN (04:15)
[2017-08-08] MEDS ORDERED: ONDANSETRON HCL 4 MG/2 ML VIAL IVP PRN (04:15)
--- NOTE | 2017-08-08 04:56 | PD ---
Physical Exam Date Seen by Provider: Aug 08, 2017 Time Seen by Provider: 04:52 Narrative Accepted in transfer of care GENERAL: Well-developed well-nourished female no acute distress no respiratory distress GCS 14 SKIN: Warm and dry. HEAD: Normocephalic. EYES: No scleral icterus. No injection or drainage. NECK: Supple, trachea midline. No JVD or lymphadenopathy. CARDIOVASCULAR: Regular rate and rhythm without murmurs, gallops, or rubs. RESPIRATORY: Breath sounds equal bilaterally. No accessory muscle use. GASTROINTESTINAL: Abdomen soft, non-tender, nondistended. MUSCULOSKELETAL: No cyanosis, or edema. Bilateral lower extremities decreased plantar and dorsiflexion without clonus DTRs 2+ bilateral patella tendons sensory exam intact patient has 4/5 motor strength left lower extremity 3/5 motor strength right lower extremity. Radial and dorsalis pedis pulses 2+ to palpation bilaterally. BACK: Nontender without obvious deformity. No CVA tenderness. Data Data Last Documented VS Vital Signs Date Time Temp Pulse Resp B/P (MAP) Pulse Ox O2 Delivery O2 Flow Rate FiO2 08/08/17 03:00 81 16 141/88 (105) 97 Nasal Cannula 2.00 08/07/17 22:42 98.7 Orders Orders Complete Blood Count With Diff (08/07/17 22:51) Comprehensive Metabolic Panel (08/07/17 22:51) Lipase (08/07/17 22:51) Lactic Acid (08/07/17 22:51) Urinalysis - C+S If Indicated (08/07/17 22:51) Ct Abd/Pel W/O Iv Contrast (08/07/17 22:51) Iv Access Insert/Monitor (08/07/17 22:51) Ecg Monitoring (08/07/17 22:51) Oximetry (08/07/17 22:51) Sodium Chloride 0.9% Flush (Ns Flush) (08/07/17 23:00) Electrocardiogram (08/07/17 22:51) Mri T Spine W/O Contrast (08/07/17 ) Mri L Spine W/O Contrast (08/07/17 ) C Diff Toxin Pcr (08/07/17 22:54) Enteric Path (Stool) (08/07/17 22:54) Admit Order (Ed Use Only) (08/08/17 ) Vital Signs (Adult) Q4H (08/08/17 03:59) Activity Bed Rest (08/08/17 03:59) Notify Dr: Other (08/08/17 03:59) Labs Laboratory Tests Test 08/07/17 00:22 08/08/17 01:10 White Blood Count 10.1 TH/MM3 Red Blood Count 4.37 MIL/MM3 Hemoglobin 13.7 GM/DL Hematocrit 39.6 % Mean Corpuscular Volume 90.7 FL Mean Corpuscular Hemoglobin 31.4 PG Mean Corpuscular Hemoglobin Concent 34.7 % Red Cell Distribution Width 15.8 % Platelet Count 108 TH/MM3 Mean Platelet Volume 9.2 FL Neutrophils (%) (Auto) 78.2 % Lymphocytes (%) (Auto) 14.4 % Monocytes (%) (Auto) 6.4 % Eosinophils (%) (Auto) 0.6 % Basophils (%) (Auto) 0.4 % Neutrophils # (Auto) 7.9 TH/MM3 Lymphocytes # (Auto) 1.4 TH/MM3 Monocytes # (Auto) 0.6 TH/MM3 Eosinophils # (Auto) 0.1 TH/MM3 Basophils # (Auto) 0.0 TH/MM3 CBC Comment DIFF FINAL Differential Comment Blood Urea Nitrogen 12 MG/DL Creatinine 0.65 MG/DL Random Glucose 87 MG/DL Total Protein 6.8 GM/DL Albumin 3.6 GM/DL Calcium Level 8.5 MG/DL Alkaline Phosphatase 83 U/L Aspartate Amino Transf (AST/SGOT) 36 U/L Alanine Aminotransferase (ALT/SGPT) 28 U/L Total Bilirubin 1.6 MG/DL Sodium Level 146 MEQ/L Potassium Level 3.3 MEQ/L Chloride Level 110 MEQ/L Carbon Dioxide Level 26.8 MEQ/L Anion Gap 9 MEQ/L Estimat Glomerular Filtration Rate 93 ML/MIN Lactic Acid Level 1.1 mmol/L Lipase 104 U/L Urine Color YELLOW Urine Turbidity HAZY Urine pH 6.0 Urine Specific [place] 1.025 Urine Protein TRACE mg/dL Urine Glucose (UA) NEG mg/dL Urine Ketones 10 mg/dL Urine Occult Blood NEG Urine Nitrite NEG Urine Bilirubin NEG Urine Urobilinogen 2.0 MG/DL Urine Leukocyte Esterase NEG Urine RBC 1 /hpf Urine WBC 1 /hpf Urine Squamous Epithelial Cells 1 /hpf Urine Hyaline Casts 2 /lpf Urine Mucus FEW /lpf Microscopic Urinalysis Comment CULT NOT INDICATED MDM Medical Record Reviewed: Yes Supervised Visit with NELL: Yes Interpretation(s) Last Impressions Abdomen/Pelvis CT 08/07/17 2251 Signed Impressions: Service Date/Time: Monday, August 07, 2017 23:07 - CONCLUSION: 1. Punctate nonobstructing right renal calculus. 2. Cirrhotic liver with portal hypertension. Serafin Chilel MD Thoracic Spine MRI 08/07/17 0000 Signed Impressions: Service Date/Time: Monday, August 07, 2017 23:26 - CONCLUSION: 1. Thoracic spinal cord is unremarkable. 2. Mild broad-based disc bulge T2-T3 without canal stenosis. Serafin Chilel MD Lumbar Spine MRI 08/07/17 0000 Signed Impressions: Service Date/Time: Monday, August 07, 2017 23:26 - CONCLUSION: 1. Left-sided protrusion L1-2 without canal stenosis. 2. Multilevel disc bulges including L2-3, L3-4 levels without canal stenosis. 3. Distal to L4-L5 in conjunction with hypertrophic facets cause mild canal stenosis. 4. Grade 1 spondylolisthesis L5 on S1. 5. Scattered facet arthropathy and neural femoral narrowing as described above. Serafin Chilel MD CBC & BMP Diagram 08/07/17 00:22 Total Protein 6.8, Albumin 3.6, Calcium Level 8.5, Alkaline Phosphatase 83, Aspartate Amino Transf (AST/SGOT) 36, Alanine Aminotransferase (ALT/SGPT) 28, Total Bilirubin 1.6 H Vital Signs Date Time Temp Pulse Resp B/P (MAP) Pulse Ox O2 Delivery O2 Flow Rate FiO2 08/08/17 03:00 81 16 141/88 (105) 97 Nasal Cannula 2.00 08/07/17 22:42 96 Nasal Cannula 2.00 08/07/17 22:42 98.7 97 18 143/79 (100) 97 Nasal Cannula 08/07/17 22:38 98.7 96 16 143/79 (100) 97 Narrative Course Patient reports has been seen by Dr. Santos in the past Physician Communication Physician Communication discussed with Dr Clacny for admission Diagnosis Primary Impression: Lumbar disc disease with radiculopathy Additional Impression: HNP (herniated nucleus pulposus), lumbar Admitting Information Admitting Physician Requests: Admit Leigha Butler MD Aug 08, 2017 04:56
[2017-08-08 06:36] VITALS: BP 131/76; PULSE 96; RESP 18; TEMP 96.1; O2SAT 96
[2017-08-08 08:00] VITALS: BP 131/76; PULSE 96; RESP 18; TEMP 96.1; O2SAT 96
[2017-08-08] MEDS: DOCUSATE SODIUM 50 MG/SENNA 8.6 MG TAB PO SCH ×2 (09:00→22:43)
--- NOTE | 2017-08-08 09:47 | PD.CONS ---
History of Present Illness Service Neurosurgery Consult Requested By Hospitalist Reason for Consult Lumbar foraminal stenosis Primary Care Physician Lisa Nixon MD Diagnoses: History of Present Illness 57-year-old female with a chronic history of low back pain which she' s had for several years. He has a remote history of L4-5 and L5-S1 laminectomy with postlaminectomy syndrome and bilateral foot drop. She was seen 2 years ago for similar findings and was felt not to be a surgical candidate. She states that lately she has been stressed out the loss of family member and also feels like her "congestive heart failure" is acting up. With the worsening back pain and lower extremity subjective weakness with legs giving out at times she presented to the emergency room yesterday. MRI scan thoracic and lumbar spine does not reveal any significant spinal stenosis. She does have some degenerative disc disease and facet arthropathy with foraminal stenosis particularly at L4-5 level left side. She also relates that she had EMG and nerve conduction studies on the conservative years ago and was diagnosed with peripheral neuropathy. Review of Systems Constitutional: COMPLAINS OF: Fatigue, DENIES: Diaphoretic episodes, Fever, Weight gain, Weight loss, Chills, Dizziness, Change in appetite, Night Sweats Endocrine: DENIES: Abnorml menstrual pattern, Heat/cold intolerance, Polydipsia , Polyuria, Polyphagia Eyes: DENIES: Blurred vision, Diplopia, Eye inflammation, Eye pain, Vision loss , Photosensitivity, Double Vision Ears, nose, mouth, throat: DENIES: Tinnitus, Hearing loss, Vertigo, Nasal discharge, Oral lesions, Throat pain, Hoarseness, Ear Pain, Running Nose, Epistaxis, Sinus Pain, Toothache, Odynophagia Respiratory: COMPLAINS OF: Shortness of breath, DENIES: Apneas, Cough, Snoring , Wheezing, Hemoptysis, Sputum production Cardiovascular: COMPLAINS OF: Dyspnea on Exertion, DENIES: Chest pain, Palpitations, Syncope, PND, Lower Extremity Edema, Orthopnea, Claudication Gastrointestinal: DENIES: Abdominal pain, Black stools, Bloody stools, Constipation, Diarrhea, Nausea, Vomiting, Difficulty Swallowing, Anorexia Genitourinary: DENIES: Abnormal vaginal bleeding, Dysmenorrhea, Dyspareunia, Sexual dysfunction, Urinary frequency, Urinary incontinence, Urgency, Hematuria , Dysuria, Nocturia, Vaginal discharge Musculoskeletal: COMPLAINS OF: Muscle aches, Stiffness, Back pain, DENIES: Joint pain, Joint Swelling, Neck pain Integumentary: DENIES: Abnormal pigmentation, Pruritus, Rash, Nail changes, Breast masses, Breast skin changes, Nipple discharge Hematologic/lymphatic: DENIES: Bruising, Lymphadenopathy Immunologic/allergic: DENIES: Eczema, Urticaria Neurologic: COMPLAINS OF: Localized weakness, Poor Balance, DENIES: Abnormal gait, Headache, Paresthesias, Seizures, Speech Problems, Tremor Psychiatric: COMPLAINS OF: Anxiety, Depression, DENIES: Confusion, Mood changes , Hallucinations, Agitation, Suicidal Ideation, Homicidal Ideation, Delusions Except as stated in HPI: all other systems reviewed are Neg Past Family Social History Allergies: Coded Allergies: ciprofloxacin (Verified Allergy, Severe, HIVES, THROAT SWELLING AND DIARRHEA, 04/02/17) diatrizoate meglumine (Verified Allergy, Severe, SWOLLEN, 04/02/17) gadobenic acid (Verified Allergy, Severe, Swelling, 04/02/17) gadodiamide (Verified Allergy, Severe, Swelling, 04/02/17) gadoteridol (Verified Allergy, Severe, Swelling, 04/02/17) iodine (Verified Allergy, Severe, HIVES, THROAT SWELLING, 04/02/17) iodixanol (Verified Allergy, Severe, SWELLIN, 04/02/17) iohexol (Verified Allergy, Severe, Swelling, 04/02/17) ketorolac (Verified Allergy, Severe, HIVES AND THROAT SWELLING, 04/02/17) lisinopril (Verified Allergy, Severe, tongue / throat swelling, 04/02/17) penicillin G (Verified Allergy, Severe, HIVES, THROAT SWELLING, 04/02/17) potassium iodide (Verified Allergy, Severe, HIVES, THROAT SWELLING, ) povidone-iodine (Verified Allergy, Severe, HIVES, THROAT SWELLING, 04/02/17 ) sodium iodide (Verified Allergy, Severe, HIVES, THROAT SWELLING, 04/02/17) sodium iodide (Verified Allergy, Severe, HIVES, THROAT SWELLING, 04/02/17) estradiol (Verified Allergy, Intermediate, hives, 04/02/17) estrogens, conjugated (Verified Allergy, Intermediate, hives, 04/02/17) Past Medical History Endocrine: REPORTS HX OF: Hypothyroidism Respiratory: REPORTS HX OF: Asthma, COPD Cardiovascular: REPORTS HX OF: Congestive Heart failure, Hypertension Gastrointestinal: REPORTS HX OF: GERD, Liver disease, colitis Infectious disease: REPORTS HX OF: Hepatitis (hepatitis c with cirrhosis history) Past Surgical History Gynecologic: REPORTS HX OF: delivery (1981, 1993), Hysterectomy (2004) Neurologic: REPORTS HX OF: Spinal surgery (cervical fusion 1991, 2009 lumbar lami 1997, 2002) Reported Medications Sucralfate 1 Gram Tab 1 Gm PO TID Ventolin Hfa 18 GM Inh (Albuterol Sulfate) 90 Mcg/Act Aer 2 Puff INH Q4-6H PRN Symbicort Inh (Budesonide/Formoterol Fumarate) 160-4.5 Mcg/Act Aero 1 Puff INH Q12HR Albuterol Neb (Albuterol Sulfate) 2.5 Mg/3 Ml Neb 2.5 Mg NEB Q4HR NEB PRN Flomax (Tamsulosin HCl) 0.4 Mg Cap 0.4 Mg PO HS Zofran Odt (Ondansetron Odt) 4 Mg Tab 4 Mg SL Q6HR PRN Tylenol (Acetaminophen) 325 Mg Tab 650 Mg PO Q6H PRN Ibuprofen 200 Mg Cap 600 Mg PO Q8HR PRN Singulair (Montelukast Sodium) 10 Mg Tab 10 Mg PO DAILY Creon (Amylase/Lipase/Protease) 6,000-19,000-30,000 Units Cap 1 Cap PO TIDPC Xifaxan (Rifaximin) 550 Mg Tab 550 Mg PO DAILY Zyrtec (Cetirizine HCl) 10 Mg Tablet 10 Mg PO DAILY Omeprazole 40 Mg Cap 40 Mg PO DAILY Propranolol (Propranolol HCl) 20 Mg Tab 20 Mg PO DAILY Family History FH: COPD (chronic obstructive pulmonary disease) G8 MOTHER G8 SISTER FH: breast cancer FH: colon cancer G8 FATHER FH: diabetes mellitus G8 FATHER G8 MOTHER FH: skin cancer G8 FATHER FH: thyroid disease G8 MOTHER FHx: hypertension G8 FATHER G8 MOTHER G8 SISTER Social History She is single and lives alone. Smokes cigarettes although denies alcohol use. Physical Exam Vital Signs Vital Signs Date Time Temp Pulse Resp B/P (MAP) Pulse Ox O2 Delivery O2 Flow Rate FiO2 08/08/17 08:00 96.1 96 18 131/76 (94) 96 08/08/17 06:36 96.1 96 18 131/76 (94) 96 08/08/17 03:00 81 16 141/88 (105) 97 Nasal Cannula 2.00 08/07/17 22:42 96 Nasal Cannula 2.00 08/07/17 22:42 98.7 97 18 143/79 (100) 97 Nasal Cannula 08/07/17 22:38 98.7 96 16 143/79 (100) 97 Physical Exam GENERAL: This is a well-nourished, well-developed patient, in no apparent distress. SKIN: No rashes, ecchymoses or lesions. Cool and dry. HEAD: Atraumatic. Normocephalic. No temporal or scalp tenderness. EYES: Pupils equal round and reactive. Extraocular motions intact. No scleral icterus. No injection or drainage. ENT: Nose without bleeding, purulent drainage or septal hematoma. Throat without erythema, tonsillar hypertrophy or exudate. Uvula midline. Airway patent. NECK: Trachea midline. No JVD or lymphadenopathy. Supple, nontender, no meningeal signs. CARDIOVASCULAR: Regular rate and rhythm without murmurs, gallops, or rubs. RESPIRATORY: Clear to auscultation. Breath sounds equal bilaterally. No wheezes , rales, or rhonchi. GASTROINTESTINAL: Abdomen soft, non-tender, nondistended. No hepato-splenomegaly , or palpable masses. No guarding. MUSCULOSKELETAL: Extremities without clubbing, cyanosis, or edema. No joint tenderness, effusion, or edema noted. No calf tenderness. Negative Homans sign bilaterally. NEUROLOGICAL: Awake and alert. Cranial nerves II through XII intact. Normal strength in the upper extremities. Moves lower extremities spontaneously bilaterally although when prompted to assess muscle strength as she states it hurts and would not give a good effort. She has a chronic bilateral foot drop since her lumbar spine surgeries several years ago. Negative Rogers's and negative Babinski. Appreciates light touch sensation bilaterally in the lower extremities. Laboratory Laboratory Tests Test 08/08/17 01:10 Urine Color YELLOW Urine Turbidity HAZY Urine pH 6.0 Urine Specific [place] 1.025 Urine Protein TRACE Urine Glucose (UA) NEG Urine Ketones 10 Urine Occult Blood NEG Urine Nitrite NEG Urine Bilirubin NEG Urine Urobilinogen 2.0 Urine Leukocyte Esterase NEG Urine RBC 1 Urine WBC 1 Urine Squamous Epithelial Cells 1 Urine Hyaline Casts 2 Urine Mucus FEW Microscopic Urinalysis Comment CULT NOT INDICATED Result Diagram: 08/07/17 0022 08/07/17 0022 Imaging Last Impressions Abdomen/Pelvis CT 08/07/17 2251 Signed Impressions: Service Date/Time: Monday, August 07, 2017 23:07 - CONCLUSION: 1. Punctate nonobstructing right renal calculus. 2. Cirrhotic liver with portal hypertension. Serafin Chilel MD Thoracic Spine MRI 08/07/17 0000 Signed Impressions: Service Date/Time: Monday, August 07, 2017 23:26 - CONCLUSION: 1. Thoracic spinal cord is unremarkable. 2. Mild broad-based disc bulge T2-T3 without canal stenosis. Serafin Chilel MD Lumbar Spine MRI 08/07/17 0000 Signed Impressions: Service Date/Time: Monday, August 07, 2017 23:26 - CONCLUSION: 1. Left-sided protrusion L1-2 without canal stenosis. 2. Multilevel disc bulges including L2-3, L3-4 levels without canal stenosis. 3. Distal to L4-L5 in conjunction with hypertrophic facets cause mild canal stenosis. 4. Grade 1 spondylolisthesis L5 on S1. 5. Scattered facet arthropathy and neural femoral narrowing as described above. Serafin Chilel MD Assessment and Plan Assessment and Plan 57-year-old lady with a chronic history of low back pain with the postlaminectomy syndrome L4-S1 with no significant thoracic or spinal stenosis. She has a chronic bilateral foot drop along with peripheral neuropathy. Isolated lumbar foraminal stenosis does not lead to generalized lower extremity weakness. She will not benefit from any neurosurgical intervention. Recommend physical therapy and pain control. If further assistance is needed regarding workup for her lumbar extremity weakness then would recommend a neurology evaluation. Kai Santos MD Aug 08, 2017 09:47
[2017-08-08] MEDS ORDERED: MORPHINE SULFATE 4 MG/ML INJ IV ONE (10:15)
[2017-08-08] MEDS: SODIUM CHLORIDE 0.9% FLUSH 10 ML FLUSH IV FLUSH SCH ×2 (10:26→22:43)
[2017-08-08 10:54] VITALS: BP 145/85; PULSE 79; RESP 16; TEMP 98.5; O2SAT 95
[2017-08-08] MEDS ORDERED: ACETAMINOPHEN/HYDROcodone 325 MG/5 MG TAB PO PRN (13:00)
[2017-08-08] MEDS: ACETAMINOPHEN/HYDROcodone 325 MG/7.5 MG TAB PO PRN ×3 (13:13→23:14)
[2017-08-08 15:02] VITALS: BP 159/71; PULSE 83; RESP 16; TEMP 98; O2SAT 95
--- NOTE | 2017-08-08 17:42 | HHI.HP ---
HPI Service [facility] Primary Care Physician Lisa Nixon MD Admission Diagnosis Lumbar disc disease/HNP Diagnoses: Chief Complaint: Weakness, epigastric abdominal pain, back pain Travel History International Travel<30 Days: No Contact w/Intl Traveler <30 Da: No Traveled to Known Affected Are: No History of Present Illness This is a 57-year-old female with past medical history significant for chronic back pain with a remote history of L4-L5 and L5-S1 laminectomy with postlaminectomy syndrome and bilateral foot drop. The patient presents with multiple complaints including increased lumbar back pain, increased generalized weakness, nausea, vomiting and epigastric abdominal pain which have been getting worst in the previous weeks. The patient also complains of approximately 5 months of diarrhea which is described as watery. Patient states she has gotten so weak that she has been falling frequently and she passed out prior to coming to the hospital. The patient states she hit her head the left side. Patient also complains she has been getting diarrhea for the past 3 months. She also states that she has been having trouble with her denture and she has been on antibiotics recently. The patient otherwise denies any chest pain, complains of shortness of breath, denies fevers, chills. The patient denies melena or hematochezia. The patient states that has resolved of the nausea, vomiting or abdominal pain she has had a poor appetite and decreased oral intake. Review of Systems As per HPI, other systems reviewed by me and negative. Past Family Social History Past Medical History COPD, tobacco abuse, hypertension, hepatitis C, hiatal hernia, GERD, gastric ulcer, liver cirrhosis, portal hypertension, cervical cancer, chronic pancreatitis Past Surgical History Cervical fusion. Endoscopy. 2, cholecystectomy, and hysterectomy. Reported Medications Reported Meds & Active Scripts Active Sucralfate 1 Gram Tab 1 Gm PO TID on empty stomach Ventolin Hfa 18 GM Inh (Albuterol Sulfate) 90 Mcg/Act Aer 2 Puff INH Q4-6H PRN Symbicort Inh (Budesonide/Formoterol Fumarate) 160-4.5 Mcg/Act Aero 1 Puff INH Q12HR Albuterol Neb (Albuterol Sulfate) 2.5 Mg/3 Ml Neb 2.5 Mg NEB Q4HR NEB PRN Flomax (Tamsulosin HCl) 0.4 Mg Cap 0.4 Mg PO HS Zofran Odt (Ondansetron Odt) 4 Mg Tab 4 Mg SL Q6HR PRN Reported Tylenol (Acetaminophen) 325 Mg Tab 650 Mg PO Q6H PRN Ibuprofen 200 Mg Cap 600 Mg PO Q8HR PRN Singulair (Montelukast Sodium) 10 Mg Tab 10 Mg PO DAILY Creon (Amylase/Lipase/Protease) 6,000-19,000-30,000 Units Cap 1 Cap PO TIDPC Xifaxan (Rifaximin) 550 Mg Tab 550 Mg PO DAILY Zyrtec (Cetirizine HCl) 10 Mg Tablet 10 Mg PO DAILY Omeprazole 40 Mg Cap 40 Mg PO DAILY Propranolol (Propranolol HCl) 20 Mg Tab 20 Mg PO DAILY Allergies: Coded Allergies: ciprofloxacin (Verified Allergy, Severe, HIVES, THROAT SWELLING AND DIARRHEA, 04/02/17) diatrizoate meglumine (Verified Allergy, Severe, SWOLLEN, 04/02/17) gadobenic acid (Verified Allergy, Severe, Swelling, 04/02/17) gadodiamide (Verified Allergy, Severe, Swelling, 04/02/17) gadoteridol (Verified Allergy, Severe, Swelling, 04/02/17) iodine (Verified Allergy, Severe, HIVES, THROAT SWELLING, 04/02/17) iodixanol (Verified Allergy, Severe, SWELLIN, 04/02/17) iohexol (Verified Allergy, Severe, Swelling, 04/02/17) ketorolac (Verified Allergy, Severe, HIVES AND THROAT SWELLING, 04/02/17) lisinopril (Verified Allergy, Severe, tongue / throat swelling, 04/02/17) penicillin G (Verified Allergy, Severe, HIVES, THROAT SWELLING, 04/02/17) potassium iodide (Verified Allergy, Severe, HIVES, THROAT SWELLING, ) povidone-iodine (Verified Allergy, Severe, HIVES, THROAT SWELLING, 04/02/17 ) sodium iodide (Verified Allergy, Severe, HIVES, THROAT SWELLING, 04/02/17) sodium iodide (Verified Allergy, Severe, HIVES, THROAT SWELLING, 04/02/17) estradiol (Verified Allergy, Intermediate, hives, 04/02/17) estrogens, conjugated (Verified Allergy, Intermediate, hives, 04/02/17) Active Ordered Medications Current Medications Medications (Trade) Dose Ordered Sig/Lainey Route Start Time Stop Time Status Last Admin (NS Flush) 2 ml UNSCH PRN IV FLUSH 08/08/17 04:15 (NS Flush) 2 ml BID IV FLUSH 08/08/17 09:00 08/08/17 10:26 (Tylenol) 650 mg Q4H PRN PO 08/08/17 04:15 08/08/17 16:31 (Zofran Inj) 4 mg Q6H PRN IVP 08/08/17 04:15 (Narcan Inj) 0.4 mg UNSCH PRN IV PUSH 08/08/17 04:15 (Lesvia-Colace) 1 tab BID PO 08/08/17 09:00 (Milk Of Magnesia Liq) 30 ml Q12H PRN PO 08/08/17 04:15 (Senokot) 17.2 mg Q12H PRN PO 08/08/17 04:15 (Dulcolax Supp) 10 mg DAILY PRN RECTAL 08/08/17 04:15 (Lactulose Liq) 30 ml DAILY PRN PO 08/08/17 04:15 (Matthews 5-325 Mg) 1 tab Q4H PRN PO 08/08/17 13:00 (Matthews 7.5-325 Mg) 1 tab Q4H PRN PO 08/08/17 13:00 08/08/17 13:13 Family History Denies family history of CAD. There is family history of diabetes on both sides. Family history of hypertension. Social History Patient has been smoking about 3 cigarettes a day for 1 year. Prior that she smoked less than one half pack of cigarettes a day for 25 years. Denies alcohol or illicit drugs. Physical Exam Vital Signs Vital Signs Date Time Temp Pulse Resp B/P (MAP) Pulse Ox O2 Delivery O2 Flow Rate FiO2 08/08/17 15:02 98.0 83 16 159/71 (100) 95 08/08/17 10:54 98.5 79 16 145/85 (105) 95 08/08/17 08:00 96.1 96 18 131/76 (94) 96 08/08/17 06:36 96.1 96 18 131/76 (94) 96 08/08/17 03:00 81 16 141/88 (105) 97 Nasal Cannula 2.00 08/07/17 22:42 96 Nasal Cannula 2.00 08/07/17 22:42 98.7 97 18 143/79 (100) 97 Nasal Cannula 08/07/17 22:38 98.7 96 16 143/79 (100) 97 Physical Exam GENERAL: This is a well-nourished, well-developed patient, in no apparent distress. SKIN: No rashes, ecchymoses or lesions. Cool and dry. HEAD: Atraumatic. Normocephalic. No temporal or scalp tenderness. EYES: Pupils equal round and reactive. Extraocular motions intact. No scleral icterus. No injection or drainage. ENT: Nose without bleeding, purulent drainage or septal hematoma. Throat without erythema, tonsillar hypertrophy or exudate. Uvula midline. Airway patent. NECK: Trachea midline. No JVD or lymphadenopathy. Supple, nontender, no meningeal signs. CARDIOVASCULAR: Regular rate and rhythm without murmurs, gallops, or rubs. RESPIRATORY: Clear to auscultation. Breath sounds equal bilaterally. No wheezes , rales, or rhonchi. GASTROINTESTINAL: Abdomen soft, non-tender, nondistended. No hepato-splenomegaly , or palpable masses. No guarding. MUSCULOSKELETAL: Extremities without clubbing, cyanosis, or edema. No joint tenderness, effusion, or edema noted. No calf tenderness. Negative Homans sign bilaterally. NEUROLOGICAL: Awake and alert. Cranial nerves II through XII intact. Motor and sensory grossly within normal limits. Five out of 5 muscle strength in all muscle groups. Normal speech. Laboratory Laboratory Tests Test 08/08/17 01:10 Urine Color YELLOW Urine Turbidity HAZY Urine pH 6.0 Urine Specific [place] 1.025 Urine Protein TRACE Urine Glucose (UA) NEG Urine Ketones 10 Urine Occult Blood NEG Urine Nitrite NEG Urine Bilirubin NEG Urine Urobilinogen 2.0 Urine Leukocyte Esterase NEG Urine RBC 1 Urine WBC 1 Urine Squamous Epithelial Cells 1 Urine Hyaline Casts 2 Urine Mucus FEW Microscopic Urinalysis Comment CULT NOT INDICATED Result Diagram: 08/07/17 0022 08/07/17 0022 Imaging Last Impressions Abdomen/Pelvis CT 08/07/17 3199 Signed Impressions: Service Date/Time: Monday, August 07, 2017 23:07 - CONCLUSION: 1. Punctate nonobstructing right renal calculus. 2. Cirrhotic liver with portal hypertension. Serafin Chilel MD Thoracic Spine MRI 08/07/17 0000 Signed Impressions: Service Date/Time: Monday, August 07, 2017 23:26 - CONCLUSION: 1. Thoracic spinal cord is unremarkable. 2. Mild broad-based disc bulge T2-T3 without canal stenosis. Serafin Chilel MD Lumbar Spine MRI 08/07/17 0000 Signed Impressions: Service Date/Time: Monday, August 07, 2017 23:26 - CONCLUSION: 1. Left-sided protrusion L1-2 without canal stenosis. 2. Multilevel disc bulges including L2-3, L3-4 levels without canal stenosis. 3. Distal to L4-L5 in conjunction with hypertrophic facets cause mild canal stenosis. 4. Grade 1 spondylolisthesis L5 on S1. 5. Scattered facet arthropathy and neural femoral narrowing as described above. Serafin Chilel MD Caprini VTE Risk Assessment Caprini VTE Risk Assessment: No/Low Risk (score <= 1) Caprini Risk Assessment Model Point Value = 1 Point Value = 2 Point Value = 3 Point Value = 5 Age 41-60 Minor surgery BMI > 25 kg/m2 Swollen legs Varicose veins or History of unexplained or recurrent spontaneous Oral contraceptives or hormone replacement Sepsis (< 1 month) Serious lung disease, including pneumonia (< 1 month) Abnormal pulmonary function Acute myocardial infarction Congestive heart failure (< 1 month) History of inflammatory bowel disease Medical patient at bed rest Age 61-74 Arthroscopic surgery Major open surgery (> 45 min) Laparoscopic surgery (> 45 min) Malignancy Confined to bed (> 72 hours) Immobilizing plaster cast Central venous access Age >= 75 History of VTE Family history of VTE Factor V Leiden Prothrombin [id number] Lupus anticoagulant Anticardiolipin antibodies Elevated serum homocysteine Heparin-induced thrombocytopenia Other congenital or acquired thrombophilia Stroke (< 1 month) Elective arthroplasty Hip, pelvis, or leg fracture Acute spinal cord injury (< 1 month) Prophylaxis Regimen Total Risk Factor Score Risk Level Prophylaxis Regimen 0-1 Low Early ambulation 2 Moderate Order ONE of the following: *Sequential Compression Device (SCD) *Heparin 5000 units SQ BID 3-4 Higher Order ONE of the following medications: *Heparin 5000 units SQ TID *Enoxaparin/Lovenox 40 mg SQ daily (WT < 150 kg, CrCl > 30 mL/min) *Enoxaparin/Lovenox 30 mg SQ daily (WT < 150 kg, CrCl > 10-29 mL/min) *Enoxaparin/Lovenox 30 mg SQ BID (WT < 150 kg, CrCl > 30 mL/min) AND/OR *Sequential Compression Device (SCD) 5 or more Highest Order ONE of the following medications: *Heparin 5000 units SQ TID (Preferred with Epidurals) *Enoxaparin/Lovenox 40 mg SQ daily (WT < 150 kg, CrCl > 30 mL/min) *Enoxaparin/Lovenox 30 mg SQ daily (WT < 150 kg, CrCl > 10-29 mL/min) *Enoxaparin/Lovenox 30 mg SQ BID (WT < 150 kg, CrCl > 30 mL/min) AND *Sequential Compression Device (SCD) Assessment and Plan Problem List: (1) Weakness ICD Code: R53.1 - Weakness Plan: Place the patient outpatient observation. PT eval. (2) Lumbar radiculopathy, chronic ICD Code: M54.16 - Radiculopathy, lumbar region Status: Acute Plan: Neurosurgery consulted. Lumbar and thoracic spine MRI did not show spinal canal stenosis. These are described above. Neurosurgery recommends nonsurgical management with physical therapy and pain control. (3) Chronic hepatitis C with cirrhosis ICD Code: B18.2 - Chronic viral hepatitis C; K74.60 - Unspecified cirrhosis of liver Status: Chronic Plan: Seems to be stable. Continue home medications. Continue cephalexin, propranolol, pancrelipase. (4) GERD (gastroesophageal reflux disease) ICD Code: K21.9 - GERD (gastroesophageal reflux disease) Status: Chronic Plan: Continue Carafate and PPI. The patient is complaining of epigastric abdominal pain associated with nausea, vomiting and decreased oral intake with poor appetite. Will consult gastroenterology for evaluation for EGD. (5) Hypernatremia ICD Code: E87.0 - Hyperosmolality and hypernatremia Plan: Likely secondary to mild dehydration. Sodium on admission 146. Recheck BMP. Encourage oral intake of fluids. (6) Hypokalemia ICD Code: E87.6 - Hypokalemia Status: Acute Plan: Likely secondary to poor oral intake. Replace potassium orally and monitor BMP. (7) Diarrhea ICD Code: R19.7 - Diarrhea, unspecified Plan: Patient has been having chronic diarrhea. Suspect chronic diarrhea secondary to chronic pancreatitis and some degree of malabsorption. However will check C. difficile toxin stool PCR given that the patient has been on antibiotics recently. Follow-up GI recommendations. (8) COPD with acute exacerbation ICD Code: J44.1 - Chronic obstructive pulmonary disease with (acute) exacerbation Status: Acute Plan: Patient has diffuse bilateral expiratory wheezing. Seems to have a moderate exacerbation. I will place on IV Solu-Medrol and duo nebs. Continue montelukast and Symbicort inhaler. (9) HTN (hypertension) ICD Code: I10 - Essential (primary) hypertension Status: Chronic Plan: BP seems to be stable. Continue home antihypertensive medications which include propranolol. Monitor vital signs Problem Qualifiers (1) GERD (gastroesophageal reflux disease): Qualified Codes: K21.9 - Gastro-esophageal reflux disease without esophagitis (2) Diarrhea: Qualified Codes: K90.9 - Intestinal malabsorption, unspecified; R19.7 - Diarrhea, unspecified (3) HTN (hypertension): Qualified Codes: I10 - Essential (primary) hypertension Jose Samuels MD Aug 08, 2017 17:42
[2017-08-08] MEDS ORDERED: RESP: ALBUTEROL 2.5 MG/IPRATROPIUM 0.5 MG NEB (PRN) NEB (18:30)
[2017-08-08] MEDS: LIPASE/PROTEASE/AMYLASE (6,000/19,000/30,000) CAP PO SCH (18:45)
[2017-08-08 19:00] LABS: HEMATOCRIT 36.4 % (35.0-46.0); HEMOGLOBIN 12.7 GM/DL (11.6-15.3); MEAN CELL VOLUME 90.2 FL (80.0-100.0); MEAN CORPUSCULAR HEMOGLOBIN 31.4 PG (27.0-34.0); MEAN CORPUSCULAR HGB CONC 34.8 % (32.0-36.0); MEAN PLATELET VOLUME 8.8 FL (7.0-11.0); PLATELET COUNT 78 TH/MM3 (150-450); RED BLOOD COUNT 4.03 MIL/MM3 (4.00-5.30); RED CELL DISTRIBUTION WIDTH 15.2 % (11.6-17.2); WHITE BLOOD COUNT 5.1 TH/MM3 (4.0-11.0)
[2017-08-08 19:16] LABS: BICARBONATE 28.1 MEQ/L (21.0-32.0); CALCIUM 8.6 MG/DL (8.5-10.1); CREATININE 0.61 MG/DL (0.50-1.00)
[2017-08-08 20:41] VITALS: BP 133/70; PULSE 74; RESP 17; TEMP 98.3; O2SAT 94
--- NOTE | 2017-08-08 21:18 | EKG ---
Date Performed: 08/08/2017 Time Performed: 00:14:34 PTAGE: 57 years EKG: Sinus rhythm WITH OCCASIONAL VENTRICULAR PREMATURE COMPLEXES MODERATE VOLTAGE CRITERIA FOR LVH, CONSIDER NORMAL V ARIANT BORDERLINE ECG PREVIOUS TRACING : 07/25/2017 15.39 Since the previous tracing, no significant change noted DOCTOR: Felipe Fontanez Interpretating Date/Time 08/08/2017 21:17:13
[2017-08-08] MEDS: methylPREDNISolone SOD SUCC 40 MG/1 ML VIAL IV PUSH SCH (22:43)
[2017-08-08] MEDS: TAMSULOSIN HCL 0.4 MG CAP PO SCH (22:45)
[2017-08-08] MEDS: BUDESONIDE-FORMOTEROL 160/4.5 MCG INHALER INH SCH (23:14)
[2017-08-08] MEDS: RESP: ALBUTEROL 2.5 MG/IPRATROPIUM 0.5 MG NEB (SCH) NEB (23:29)
[2017-08-09 00:21] VITALS: BP 141/84; PULSE 84; RESP 17; TEMP 98.1; O2SAT 95
[2017-08-09] MEDS: ACETAMINOPHEN/HYDROcodone 325 MG/7.5 MG TAB PO PRN ×2 (03:40→09:13)
[2017-08-09 04:05] VITALS: BP 124/73; PULSE 99; RESP 17; TEMP 98.4; O2SAT 94
[2017-08-09] MEDS: methylPREDNISolone SOD SUCC 40 MG/1 ML VIAL IV PUSH SCH (05:26)
[2017-08-09 06:49] LABS: AUTOMATED NEUTROPHIL # 2.5 TH/MM3 (1.8-7.7); BASOPHIL % 0.3 % (0.0-2.0); EOSINOPHIL % 0.3 % (0.0-4.0); HEMATOCRIT 38.7 % (35.0-46.0); HEMOGLOBIN 13.3 GM/DL (11.6-15.3); LYMPH % 15.1 % (9.0-44.0); LYMPHOCYTE # 0.5 TH/MM3 (1.0-4.8); MEAN CELL VOLUME 91.1 FL (80.0-100.0); MEAN CORPUSCULAR HEMOGLOBIN 31.4 PG (27.0-34.0); MEAN CORPUSCULAR HGB CONC 34.5 % (32.0-36.0); MEAN PLATELET VOLUME 8.9 FL (7.0-11.0); MONO % 1.7 % (0.0-8.0); MONOCYTE # 0.1 TH/MM3 (0-0.9); NEUT % 82.6 % (16.0-70.0); PLATELET COUNT 57 TH/MM3 (150-450); RED BLOOD COUNT 4.24 MIL/MM3 (4.00-5.30); RED CELL DISTRIBUTION WIDTH 15.6 % (11.6-17.2); WHITE BLOOD COUNT 3.1 TH/MM3 (4.0-11.0)
[2017-08-09 07:15] LABS: BICARBONATE 25.9 MEQ/L (21.0-32.0); CALCIUM 8.9 MG/DL (8.5-10.1); CREATININE 0.7 MG/DL (0.50-1.00)
[2017-08-09] MEDS: RESP: ALBUTEROL 2.5 MG/IPRATROPIUM 0.5 MG NEB (SCH) NEB ×3 (07:19→19:13)
[2017-08-09 08:11] VITALS: BP 131/74; PULSE 96; RESP 16; TEMP 97.7; O2SAT 95
[2017-08-09 08:28] LABS: OVALOCYTES 1+ (NORMAL)
[2017-08-09] MEDS ORDERED: PANTOPRAZOLE SOD 40 MG DELAYED RELEASE TAB PO SCH (09:00)
[2017-08-09] MEDS: DOCUSATE SODIUM 50 MG/SENNA 8.6 MG TAB PO SCH ×2 (09:12→22:55)
[2017-08-09] MEDS: SODIUM CHLORIDE 0.9% FLUSH 10 ML FLUSH IV FLUSH SCH ×2 (09:12→22:58)
[2017-08-09] MEDS: RIFAXIMIN 550 MG TAB PO SCH (09:12)
[2017-08-09] MEDS: CETIRIZINE HCL 10 MG TAB PO SCH (09:12)
[2017-08-09] MEDS: SUCRALFATE 1 GM TAB PO SCH ×3 (09:12→18:03)
[2017-08-09] MEDS: MONTELUKAST SODIUM 10 MG TAB PO SCH (09:12)
[2017-08-09] MEDS: LIPASE/PROTEASE/AMYLASE (6,000/19,000/30,000) CAP PO SCH ×3 (09:13→18:03)
[2017-08-09] MEDS: PROPRANOLOL HCL 20 MG TAB PO SCH (09:13)
[2017-08-09] MEDS: BUDESONIDE-FORMOTEROL 160/4.5 MCG INHALER INH SCH ×2 (09:16→21:00)
[2017-08-09 11:37] VITALS: BP 123/67; PULSE 74; RESP 16; TEMP 97.9; O2SAT 95
[2017-08-09] MEDS ORDERED: MORPHINE SULFATE 2 MG/ML SYRINGE IV PUSH ONE (12:45)
[2017-08-09] MEDS: NYSTAT/DIPHENHY/LIDO MOUTHWASH (Adult) 120ML SWISH-SWAL SCH ×3 (12:57→22:57)
[2017-08-09 16:05] VITALS: BP 118/65; PULSE 79; RESP 20; TEMP 98.7; O2SAT 95
--- NOTE | 2017-08-09 16:08 | HHI.PR ---
Subjective Remarks Deferred entry, the patient was seen at 12:20 PM. States "my bones hurt". Patient also complains of pain in the left lower jaw. Patient also states she has an ulcer on the left base of the tongue. Still complaining of epigastric pain. Denies nausea, vomiting. Objective Vitals Vital Signs Date Time Temp Pulse Resp B/P (MAP) Pulse Ox O2 Delivery O2 Flow Rate FiO2 08/09/17 11:37 97.9 74 16 123/67 (85) 95 08/09/17 08:11 97.7 96 16 131/74 (93) 95 08/09/17 04:05 98.4 99 17 124/73 (90) 94 08/09/17 00:21 98.1 84 17 141/84 (103) 95 08/08/17 20:41 98.3 74 17 133/70 (91) 94 I/O 08/08/17 08/08/17 08/08/17 08/09/17 08/09/17 08/09/17 07:00 15:00 23:00 07:00 15:00 23:00 Intake Total 750 ml Output Total 450 ml 800 ml Balance -450 ml -50 ml Intake Oral 750 ml Output Urine Total 250 ml 800 ml Stool Total 200 ml # Voids 3 Result Diagram: 08/09/1761108/09/17611 Imaging Last Impressions Abdomen/Pelvis CT 08/07/17 6021 Signed Impressions: Service Date/Time: Monday, August 07, 2017 23:07 - CONCLUSION: 1. Punctate nonobstructing right renal calculus. 2. Cirrhotic liver with portal hypertension. Serafin Chilel MD Thoracic Spine MRI 08/07/17 0000 Signed Impressions: Service Date/Time: Monday, August 07, 2017 23:26 - CONCLUSION: 1. Thoracic spinal cord is unremarkable. 2. Mild broad-based disc bulge T2-T3 without canal stenosis. Serafin Chilel MD Lumbar Spine MRI 08/07/17 0000 Signed Impressions: Service Date/Time: Monday, August 07, 2017 23:26 - CONCLUSION: 1. Left-sided protrusion L1-2 without canal stenosis. 2. Multilevel disc bulges including L2-3, L3-4 levels without canal stenosis. 3. Distal to L4-L5 in conjunction with hypertrophic facets cause mild canal stenosis. 4. Grade 1 spondylolisthesis L5 on S1. 5. Scattered facet arthropathy and neural femoral narrowing as described above. Serafin Chilel MD Objective Remarks GENERAL: This is a well-nourished, well-developed patient, in no apparent distress. SKIN: No rashes, ecchymoses or lesions. Cool and dry. HEAD: Atraumatic. Normocephalic. No temporal or scalp tenderness. EYES: Pupils equal round and reactive. Extraocular motions intact. No scleral icterus. No injection or drainage. ENT: Nose without bleeding, purulent drainage or septal hematoma. Throat without erythema, tonsillar hypertrophy or exudate. Uvula midline. Airway patent. Ulcer the left inferior side of the tongue. NECK: Trachea midline. No JVD or lymphadenopathy. Supple, nontender, no meningeal signs. CARDIOVASCULAR: Regular rate and rhythm without murmurs, gallops, or rubs. RESPIRATORY: Clear to auscultation. Breath sounds equal bilaterally. No wheezes , rales, or rhonchi. GASTROINTESTINAL: Abdomen soft, + epigastric tenderness, nondistended. No hepato -splenomegaly, or palpable masses. No guarding. MUSCULOSKELETAL: Extremities without clubbing, cyanosis, or edema. No joint tenderness, effusion, or edema noted. No calf tenderness. Negative Homans sign bilaterally. NEUROLOGICAL: Awake and alert. Cranial nerves II through XII intact. Motor and sensory grossly within normal limits. Five out of 5 muscle strength in all muscle groups. Normal speech Medications and IVs Current Medications Medications (Trade) Dose Ordered Sig/Lainey Route Start Time Stop Time Status Last Admin (NS Flush) 2 ml UNSCH PRN IV FLUSH 08/08/17 04:15 08/09/17 05:27 (NS Flush) 2 ml BID IV FLUSH 08/08/17 09:00 08/09/17 09:12 (Tylenol) 650 mg Q4H PRN PO 08/08/17 04:15 08/08/17 16:31 (Zofran Inj) 4 mg Q6H PRN IVP 08/08/17 04:15 (Narcan Inj) 0.4 mg UNSCH PRN IV PUSH 08/08/17 04:15 (Lesvia-Colace) 1 tab BID PO 08/08/17 09:00 08/09/17 09:12 (Milk Of Magnesia Liq) 30 ml Q12H PRN PO 08/08/17 04:15 (Senokot) 17.2 mg Q12H PRN PO 08/08/17 04:15 (Dulcolax Supp) 10 mg DAILY PRN RECTAL 08/08/17 04:15 (Lactulose Liq) 30 ml DAILY PRN PO 08/08/17 04:15 (Lolo 5-325 Mg) 1 tab Q4H PRN PO 08/08/17 13:00 (Tylenol) 650 mg Q6H PRN PO 08/08/17 18:30 (Symbicort 160-4.5 Mcg Inh) 1 puff Q12HR INH 08/08/17 21:00 08/09/17 09:16 (ZyrTEC) 10 mg DAILY PO 08/09/17 09:00 08/09/17 09:12 (Singulair) 10 mg DAILY PO 08/09/17 09:00 08/09/17 09:12 (Creon 6-19-30) 1 cap TIDPC PO 08/08/17 18:30 08/09/17 12:56 (Inderal) 20 mg DAILY PO 08/09/17 09:00 08/09/17 09:13 (Xifaxan) 550 mg DAILY PO 08/09/17 09:00 08/09/17 09:12 (Carafate) 1 gm TID PO 08/09/17 09:00 08/09/17 12:57 (Flomax) 0.4 mg HS PO 08/08/17 21:00 08/08/17 22:45 (Duoneb Neb) 1 ampule Q6HR WHILE AWAKE NEB NEB 08/08/17 20:00 08/09/17 13:13 (Duoneb Neb) 1 ampule Q2HR NEB PRN NEB 08/08/17 18:30 (Protonix) 40 mg BID PO 08/09/17 21:00 (Magic Mouthwash Adult Liq) 10 ml QID SWISH-SWAL 08/09/17 13:00 08/09/17 12:57 (Deltasone) 20 mg BID PO 08/09/17 21:00 (Lolo 10-325 Mg) 1 tab Q4H PRN PO 08/09/17 12:30 A/P Problem List: (1) Weakness ICD Code: R53.1 - Weakness (2) Lumbar radiculopathy, chronic ICD Code: M54.16 - Radiculopathy, lumbar region Status: Acute (3) Chronic hepatitis C with cirrhosis ICD Code: B18.2 - Chronic viral hepatitis C; K74.60 - Unspecified cirrhosis of liver Status: Chronic (4) GERD (gastroesophageal reflux disease) ICD Code: K21.9 - GERD (gastroesophageal reflux disease) Status: Chronic (5) Hypernatremia ICD Code: E87.0 - Hyperosmolality and hypernatremia (6) Hypokalemia ICD Code: E87.6 - Hypokalemia Status: Acute (7) Diarrhea ICD Code: R19.7 - Diarrhea, unspecified (8) COPD with acute exacerbation ICD Code: J44.1 - Chronic obstructive pulmonary disease with (acute) exacerbation Status: Acute (9) HTN (hypertension) ICD Code: I10 - Essential (primary) hypertension Status: Chronic (10) Oral ulceration ICD Code: K12.1 - Other forms of stomatitis Status: Acute Plan: Possibly caused by friction of the tongue over the left molars. Rx Magic mouthwash. (11) Mandibular pain ICD Code: R68.84 - Jaw pain Plan: Patient states he has been following with a dentist as an outpatient. Patient states she has had antibiotics. Advised the patient to follow-up as an outpatient on discharge. The patient is a febrile and on direct examination of the oral cavity there is no signs of infection. We will provide pain control with 1 dose of IV morphine. Start the patient on Lolo. Assessment and Plan (1) Weakness ICD Code: R53.1 - Weakness Plan: Place the patient outpatient observation. PT recommends PT at rehab versus home with home health PT. The patient requires supervision at home for safety. (2) Lumbar radiculopathy, chronic ICD Code: M54.16 - Radiculopathy, lumbar region Status: Acute Plan: Neurosurgery consulted. Lumbar and thoracic spine MRI did not show spinal canal stenosis. These are described above. Neurosurgery recommends nonsurgical management with physical therapy and pain control. (3) Chronic hepatitis C with cirrhosis ICD Code: B18.2 - Chronic viral hepatitis C; K74.60 - Unspecified cirrhosis of liver Status: Chronic Plan: Seems to be stable. Continue home medications. Continue cephalexin, propranolol, pancrelipase. (4) GERD (gastroesophageal reflux disease) ICD Code: K21.9 - GERD (gastroesophageal reflux disease) Status: Chronic Plan: Continue Carafate and PPI. The patient is complaining of epigastric abdominal pain associated with nausea, vomiting and decreased oral intake with poor appetite. GI consulted. Recommendations pending. (5) Hypernatremia ICD Code: E87.0 - Hyperosmolality and hypernatremia Plan: Likely secondary to mild dehydration. Sodium on admission 146. Recheck BMP. Hypernatremia resolved. Continue to monitor BMP. (6) Hypokalemia ICD Code: E87.6 - Hypokalemia Status: Acute Plan: Likely secondary to poor oral intake. Resolved after oral potassium replacement. Continue to monitor BMP. (7) Diarrhea ICD Code: R19.7 - Diarrhea, unspecified Plan: Patient has been having chronic diarrhea. Suspect chronic diarrhea secondary to chronic pancreatitis and some degree of malabsorption. However will check C. difficile toxin stool PCR given that the patient has been on antibiotics recently. No further diarrhea. Follow-up GI recommendations. (8) COPD with acute exacerbation ICD Code: J44.1 - Chronic obstructive pulmonary disease with (acute) exacerbation Status: Acute Plan: Patient has diffuse bilateral expiratory wheezing. Seems to have a moderate exacerbation. Continue montelukast and Symbicort inhaler. COPD with no respiratory infection and no asthma. Improving. Discontinue IV Solu-Medrol and start prednisone taper. Continue supplemental O2 to keep oxygen saturation more than 92%, continue duonebs. (9) HTN (hypertension) ICD Code: I10 - Essential (primary) hypertension Status: Chronic Plan: BP seems to be stable. Continue home antihypertensive medications which include propranolol. Monitor vital signs Discharge Planning Pending GI consultation. Problem Qualifiers (1) GERD (gastroesophageal reflux disease): Qualified Codes: K21.9 - Gastro-esophageal reflux disease without esophagitis (2) Diarrhea: Qualified Codes: K90.9 - Intestinal malabsorption, unspecified; R19.7 - Diarrhea, unspecified (3) HTN (hypertension): Qualified Codes: I10 - Essential (primary) hypertension Jose Samuels MD Aug 09, 2017 16:08
[2017-08-09] MEDS ORDERED: DICYCLOMINE HCL 20 MG TAB PO PRN (17:15)
[2017-08-09 21:14] VITALS: BP 129/64; PULSE 83; RESP 17; TEMP 98.4; O2SAT 93
[2017-08-09] MEDS: predniSONE 20 MG TAB PO SCH (22:55)
[2017-08-09] MEDS: PANTOPRAZOLE SOD 40 MG DELAYED RELEASE TAB PO SCH (22:55)
[2017-08-09] MEDS: TAMSULOSIN HCL 0.4 MG CAP PO SCH (22:55)
[2017-08-09] MEDS: ACETAMINOPHEN/HYDROcodone 325 MG/10 MG TAB PO PRN (22:56)
[2017-08-10 00:27] VITALS: BP 138/79; PULSE 83; RESP 16; TEMP 98.1; O2SAT 96
[2017-08-10] MEDS: ACETAMINOPHEN/HYDROcodone 325 MG/10 MG TAB PO PRN ×2 (03:01→09:49)
[2017-08-10 04:39] VITALS: BP 134/63; PULSE 77; RESP 16; TEMP 98.5; O2SAT 95
[2017-08-10] MEDS ORDERED: metroNIDAZOLE 250 MG TAB PO SCH (06:00)
[2017-08-10] MEDS: RESP: ALBUTEROL 2.5 MG/IPRATROPIUM 0.5 MG NEB (SCH) NEB (07:46)
--- NOTE | 2017-08-10 08:02 | MB ---
cc: Osiel Steinberg MD DATE: 08/09/2017 REASON FOR GASTROINTESTINAL: Evaluation of abdominal pain, diarrhea. HISTORY OF PRESENT ILLNESS: This is a 57-year-old female. She has a prior history of chronic back pain, in the L4-L5 region, previous laminectomy, with post-laminectomy syndrome and bilateral foot drop. She has a history of multiple complaints on this admission to the emergency room including nausea, vomiting, mid abdominal, upper abdominal pain getting worse. It is noted that the pain has worsened with movement and after eating certain meals. She states for the past 5-6 months, these episodes have been going on, but [place] of the illness of her sister recently. The patient does have underlying chronic liver disease and cirrhosis. She has a prior history of hepatitis C treated effectively and eradicated with Harvoni oral therapy. She is followed by Dr. Alvarado in our practice. She did have endoscopy 2016. That exam revealed portal gastropathy changes. No esophageal varices. She has also had colonoscopy as well. She is due for a recheck colonoscopy in 2019. She has been having diarrhea, several loose bowel movements a day. She takes Imodium that has helped her. She denies any travel history. She has had no antibiotic recently. She has had no gastrointestinal bleeding, although she has a tooth on the left side of her mouth that has been irritated and causing some swelling and bleeding. Stool collections are pending at this time. The patient does have a history of mild encephalopathy. She also has been treated with Xifaxan in the past. I was asked to evaluate further with regards to her abdominal discomfort. PAST MEDICAL HISTORY: Includes COPD, hypertension, treated and eradicated hepatitis C, hiatal hernia, GERD, liver cirrhosis, portal hypertension, cervical cancer. PAST SURGICAL HISTORY: Hysterectomy, chronic pancreatitis, cholecystectomy, C-sections x 2. MEDICATIONS: Include Sucralfate 1 gram 3 times a day, Symbicort, Ventolin, albuterol, Flomax, Zofran, she has been taking ibuprofen on a p.r.n. basis, Singulair, Creon, Xifaxan, Zyrtec, omeprazole and Propranolol. ALLERGIES: MULTIPLE ALLERGIES EXIST, CIPROFLOXACIN, GABAPENTIN, IODINE, KETOROLAC, LISINOPRIL, PENICILLIN, POVIDINE-IODINE, ESTRADIOL ESTROGENS. FAMILY HISTORY: Negative from a GI standpoint. SOCIAL HISTORY: She smokes 3 cigarettes a day. Denies illicit drug use at this time. She does admit to using nasal cocaine years ago. REVIEW OF SYSTEMS: A 12-point review of systems as stated in the HPI. She has had no fever, chills or jaundice. She denies significant weight loss. Appetite has been diminished. LABORATORY DATA: Liver enzymes within normal limits. Total bilirubin was 1.6, platelet count on admission was 108, hemoglobin was 13.7. Electrolytes were stable. Potassium was 3.3. Lipase was normal. PHYSICAL EXAMINATION: GENERAL: Today, the patient is alert, no acute distress. VITAL SIGNS: Stable. She is afebrile. HEENT: Anicteric sclerae. Oral mucosa dry. NECK: Supple. CARDIAC: S1, S2. Regular rhythm. CHEST: Clear to A and P. ABDOMEN: Soft. No organomegaly, no masses. Bowel sounds are present. Surgical scars noted in the lower abdomen and cholecystectomy scar is noted in the upper abdomen. There appears to be a protrusion between both of these scars, suggestive of upper to mid abdominal herniation of the abdominal wall. It is tender on deep palpation. There is no rebound tenderness. EXTREMITIES: Without clubbing, cyanosis, edema. RECTAL: Deferred. IMPRESSION: 1. Chronic low back pain. 2. Upper abdominal pain, possibly related to abdominal wall hernia. Other etiologies could include intra-abdominal adhesions. The patient also had a CT study which was benign from a GI standpoint. No evidence of inflammatory change or acute pancreatitis. 3. The patient has a history of previous hepatitis C. 4. Portal gastropathy. 5. History of encephalopathy. 6. Thrombocytopenia secondary to liver disease. 7. Chronic diarrhea. PLAN: At this time, we will check stools for C. difficile and for GI pathogens. After the stools are collected, I will consider an empiric course of Flagyl 250 mg 3 times a day for 7 days, perhaps followed by probiotics. For her abdominal discomfort, I have suggested Bentyl 20 mg every 6 hours as needed. The patient appears to be fairly stable at this time. Continue oral hydration as well, would also suggest a PPI daily. If the patient is ultimately discharged, I would suggest she make a followup appointment with Dr. Alvarado, who is familiar with the patient, for followup of her chronic liver disease as well. I have discussed this briefly with the patient. Thank you kindly for this consult. MD PARVEEN Mccauley/MODESTO , 05:17 PM , 06:48 PM
[2017-08-10 08:17] VITALS: BP 132/70; PULSE 76; RESP 16; TEMP 97.9; O2SAT 95
[2017-08-10] MEDS: RIFAXIMIN 550 MG TAB PO SCH (09:47)
[2017-08-10] MEDS: LIPASE/PROTEASE/AMYLASE (6,000/19,000/30,000) CAP PO SCH ×2 (09:47→13:04)
[2017-08-10] MEDS: CETIRIZINE HCL 10 MG TAB PO SCH (09:48)
[2017-08-10] MEDS: MONTELUKAST SODIUM 10 MG TAB PO SCH (09:48)
[2017-08-10] MEDS: predniSONE 20 MG TAB PO SCH (09:48)
[2017-08-10] MEDS: PROPRANOLOL HCL 20 MG TAB PO SCH (09:48)
[2017-08-10] MEDS: DOCUSATE SODIUM 50 MG/SENNA 8.6 MG TAB PO SCH (09:49)
[2017-08-10] MEDS: SUCRALFATE 1 GM TAB PO SCH ×2 (09:49→13:04)
[2017-08-10] MEDS: PANTOPRAZOLE SOD 40 MG DELAYED RELEASE TAB PO SCH (09:49)
[2017-08-10] MEDS: NYSTAT/DIPHENHY/LIDO MOUTHWASH (Adult) 120ML SWISH-SWAL SCH ×2 (09:50→13:05)
[2017-08-10] MEDS: SODIUM CHLORIDE 0.9% FLUSH 10 ML FLUSH IV FLUSH SCH (09:50)
[2017-08-10] MEDS: BUDESONIDE-FORMOTEROL 160/4.5 MCG INHALER INH SCH (09:50)
[2017-08-10 10:01] LABS: HEMATOCRIT 32.6 % (35.0-46.0); HEMOGLOBIN 11.2 GM/DL (11.6-15.3); MEAN CORPUSCULAR HEMOGLOBIN 31.3 PG (27.0-34.0); MEAN CORPUSCULAR HGB CONC 34.4 % (32.0-36.0); MEAN PLATELET VOLUME 9.3 FL (7.0-11.0); PLATELET COUNT 55 TH/MM3 (150-450); RED BLOOD COUNT 3.59 MIL/MM3 (4.00-5.30); RED CELL DISTRIBUTION WIDTH 15.3 % (11.6-17.2); WHITE BLOOD COUNT 3.9 TH/MM3 (4.0-11.0)
[2017-08-10 12:20] VITALS: BP 148/67; PULSE 66; RESP 16; TEMP 98.2; O2SAT 95
--- NOTE | 2017-08-10 12:49 | HHI.PR ---
Subjective Remarks Follow-up visit chronic back pain with remote history of L4-L5 and L5-S1 laminectomy with post laminectomy syndrome and bilateral foot drop, generalized weakness, epigastric pain. Patient seen and examined today laying in bed. Reports she had a rough night because she was needing help going to the bathroom and states there was a delay or that nobody helped her right away. Continues to complain of mild joint pain but states pain medication is helping her. Denies SOB/ dyspnea. Denies chest pain, palpitations, headaches, dizziness. Denies fevers, chills, n/v/d. Denies dysuria. Objective Vitals Vital Signs Date Time Temp Pulse Resp B/P (MAP) Pulse Ox O2 Delivery O2 Flow Rate FiO2 08/10/17 12:20 98.2 66 16 148/67 (94) 95 08/10/17 08:17 97.9 76 16 132/70 (90) 95 08/10/17 04:39 98.5 77 16 134/63 (86) 95 08/10/17 00:27 98.1 83 16 138/79 (98) 96 08/09/17 21:14 98.4 83 17 129/64 (85) 93 08/09/17 16:05 98.7 79 20 118/65 (82) 95 I/O 08/09/17 08/09/17 08/09/17 08/10/17 08/10/17 08/10/17 07:00 15:00 23:00 07:00 15:00 23:00 Output Total 3 ml Balance -3 ml Output Urine Total 3 ml # Voids 3 Result Diagram: 08/10/17 0843 08/09/17 0612 Imaging Last Impressions Abdomen/Pelvis CT 08/07/17 2251 Signed Impressions: Service Date/Time: Monday, August 07, 2017 23:07 - CONCLUSION: 1. Punctate nonobstructing right renal calculus. 2. Cirrhotic liver with portal hypertension. Serafin Chilel MD Thoracic Spine MRI 08/07/17 0000 Signed Impressions: Service Date/Time: Monday, August 07, 2017 23:26 - CONCLUSION: 1. Thoracic spinal cord is unremarkable. 2. Mild broad-based disc bulge T2-T3 without canal stenosis. Serafin Chilel MD Lumbar Spine MRI 08/07/17 0000 Signed Impressions: Service Date/Time: Monday, August 07, 2017 23:26 - CONCLUSION: 1. Left-sided protrusion L1-2 without canal stenosis. 2. Multilevel disc bulges including L2-3, L3-4 levels without canal stenosis. 3. Distal to L4-L5 in conjunction with hypertrophic facets cause mild canal stenosis. 4. Grade 1 spondylolisthesis L5 on S1. 5. Scattered facet arthropathy and neural femoral narrowing as described above. Serafin Chilel MD Objective Remarks GENERAL: This is a well-nourished, well-developed patient, in no apparent distress. SKIN: Warm and dry. HEENT: Normocephalic. Pupils equal round and reactive. Nose without bleeding. Airway patent. Dental caries. No noted erythema or edema or dental abscess on fractured tooth NECK: Trachea midline. CARDIOVASCULAR: Regular rate and rhythm without murmurs, gallops, or rubs. RESPIRATORY: Coarse breath sounds. Minimal wheeze. GASTROINTESTINAL: Abdomen soft, non-tender, nondistended. Bowel Sounds normoactive x4. MUSCULOSKELETAL: Extremities without clubbing, cyanosis, or edema. Bilateral foot drop. NEUROLOGICAL: Awake and alert. Oriented to time, place, person. No focal neuro deficit. Moves all extremities. Normal speech. Procedures None A/P Problem List: (1) Weakness ICD Code: R53.1 - Weakness (2) Lumbar radiculopathy, chronic ICD Code: M54.16 - Radiculopathy, lumbar region Status: Acute (3) Chronic hepatitis C with cirrhosis ICD Code: B18.2 - Chronic viral hepatitis C; K74.60 - Unspecified cirrhosis of liver Status: Chronic (4) GERD (gastroesophageal reflux disease) ICD Code: K21.9 - GERD (gastroesophageal reflux disease) Status: Chronic (5) Hypernatremia ICD Code: E87.0 - Hyperosmolality and hypernatremia (6) Hypokalemia ICD Code: E87.6 - Hypokalemia Status: Acute (7) Diarrhea ICD Code: R19.7 - Diarrhea, unspecified (8) COPD with acute exacerbation ICD Code: J44.1 - Chronic obstructive pulmonary disease with (acute) exacerbation Status: Acute (9) HTN (hypertension) ICD Code: I10 - Essential (primary) hypertension Status: Chronic (10) Oral ulceration ICD Code: K12.1 - Other forms of stomatitis Status: Acute (11) Mandibular pain ICD Code: R68.84 - Jaw pain Assessment and Plan 57-year-old female with past medical history significant for chronic back pain with a remote history of L4-L5 and L5-S1 laminectomy with postlaminectomy syndrome and bilateral foot drop who presents with multiple complaints including increased lumbar back pain, increased generalized weakness, nausea, vomiting and epigastric abdominal pain which have been getting worst in the previous weeks. Lumbar radiculopathy, chronic Generalized weakness Chronic pain -Neurosurgery consulted. Recommends nonsurgical management physical therapy and pain control. -Lumbar and thoracic spine MRI did not show spinal canal stenosis. -PT evaluation and treatment requested -Home with home health PT. -Appears to have pain seeking behaviors patient keeps on asking for pain medication or what medication she could take for her pain aside from ibuprofen. GERD Chronic hepatitis C with cirrhosis Abdominal pain -Initially complaints of epigastric pain and abdominal pain associated with nausea, vomiting and decreased appetite. -Gastroenterology consulted. Recommend to check stool for C. difficile with diarrhea. Placed on empiric Flagyl 250 mg 3 times a day for 7 days followed by probiotics. Bentyl 20 mg every 6 hours as needed. Continue with hydration and PPI daily. Follow-up with Dr. Alvarado in the office. -Follow-up with emergency room tech in outpatient setting. -Continue rifaximin, Creon -No abdominal pain, diarrhea on exam COPD -Initially with exacerbation. -Continues to have coarse breath sounds with mild expiratory wheeze. No S OB and dyspnea. On room air. -Symbicort, Singulair, albuterol as needed Dental abscess?, Fractured tooth Maxillary Pain -No abscess noted. -Magic mouthwash for now -Outpatient dental follow-up. HTN -Continue home medication -Monitor BP trend DVT prop SCDs. Discharge Planning Plan to [place] home today. Follow-up with GI, dentist, as an outpatient and PCP. Problem Qualifiers (1) GERD (gastroesophageal reflux disease): Qualified Codes: K21.9 - Gastro-esophageal reflux disease without esophagitis (2) Diarrhea: Qualified Codes: K90.9 - Intestinal malabsorption, unspecified; R19.7 - Diarrhea, unspecified (3) HTN (hypertension): Qualified Codes: I10 - Essential (primary) hypertension Jason Lr Aug 10, 2017 12:49
--- NOTE | 2017-08-10 12:50 | HHI.FF ---
Face to Face Verification Diagnosis: (1) Dental abscess (2) Tooth fracture (3) Pain due to dental caries (4) Lumbar radiculopathy, chronic Physical Therapy Order: Evaluate and Treat Home Health Nursing Order: Signs/symptoms of disease process Medication education-adverse effect Nursing assessment with vital signs I have seen patient Patricia Ulrich on 08/10/17. My clinical findings support the need for the requested home health care services because: Ltd mobility - disease progression Deconditioned w/ increased weakness High risk of falls I certify that my clinical findings support that this patient is homebound because: Impaired cognitive ability/safety Hx COPD- exertion dyspnea/weakness Unsteady gait/balance Jason Lr Aug 10, 2017 12:50
--- NOTE | 2017-08-10 12:50 | HHI.DCPOC ---
Discharge Care Plan Diagnosis: (1) Dental abscess (2) Tooth fracture (3) Pain due to dental caries (4) Weakness (5) Lumbar radiculopathy, chronic (6) Chronic hepatitis C with cirrhosis Your Health Problems Are: Difficulty with ADL Goals to Promote Your Health * To prevent worsening of your condition and complications * To maintain your health at the optimal level Directions to Meet Your Goals Take your medications as prescribed Follow your dietary instruction Follow activity as directed Keep your appointments as scheduled Take your immunizations and boosters as scheduled If your symptoms worsen call your PCP, if no PCP go to Urgent Care Center or Emergency Room Smoking is Dangerous to Your Health. Avoid second hand smoke Call the 24-hour hour crisis hotline for domestic abuse at Jason Lr Aug 10, 2017 12:50
[2017-08-10] MEDS ORDERED: MAGICADU2 SWISH-SWAL (13:24)
[2017-08-10] MEDS ORDERED: HYDR-3516 PO (13:24)
--- NOTE | 2017-08-10 13:35 | HHI.DS ---
Discharge Summary Admission Date Aug 08, 2017 at 04:01 Discharge Date: Aug 10, 2017 Admitting Diagnosis Lumbar disc disease/HNP (1) Weakness ICD Code: R53.1 - Weakness (2) Lumbar radiculopathy, chronic ICD Code: M54.16 - Radiculopathy, lumbar region Status: Acute (3) Chronic hepatitis C with cirrhosis ICD Code: B18.2 - Chronic viral hepatitis C; K74.60 - Unspecified cirrhosis of liver Status: Chronic (4) GERD (gastroesophageal reflux disease) ICD Code: K21.9 - GERD (gastroesophageal reflux disease) Status: Chronic (5) Hypernatremia ICD Code: E87.0 - Hyperosmolality and hypernatremia (6) Hypokalemia ICD Code: E87.6 - Hypokalemia Status: Acute (7) Diarrhea ICD Code: R19.7 - Diarrhea, unspecified (8) COPD with acute exacerbation ICD Code: J44.1 - Chronic obstructive pulmonary disease with (acute) exacerbation Status: Acute (9) HTN (hypertension) ICD Code: I10 - Essential (primary) hypertension Status: Chronic (10) Oral ulceration ICD Code: K12.1 - Other forms of stomatitis Status: Acute (11) Mandibular pain ICD Code: R68.84 - Jaw pain Procedures None Brief History - From Admission This is a 57-year-old female with past medical history significant for chronic back pain with a remote history of L4-L5 and L5-S1 laminectomy with postlaminectomy syndrome and bilateral foot drop. The patient presents with multiple complaints including increased lumbar back pain, increased generalized weakness, nausea, vomiting and epigastric abdominal pain which have been getting worst in the previous weeks. The patient also complains of approximately 5 months of diarrhea which is described as watery. Patient states she has gotten so weak that she has been falling frequently and she passed out prior to coming to the hospital. The patient states she hit her head the left side. Patient also complains she has been getting diarrhea for the past 3 months. She also states that she has been having trouble with her denture and she has been on antibiotics recently. The patient otherwise denies any chest pain, complains of shortness of breath, denies fevers, chills. The patient denies melena or hematochezia. The patient states that has resolved of the nausea, vomiting or abdominal pain she has had a poor appetite and decreased oral intake. CBC/BMP: 08/10/17 0843 08/09/17 0612 Significant Findings Laboratory Tests Test 08/08/17 01:10 08/08/17 18:28 08/09/17 06:12 08/10/17 08:43 Urine Turbidity HAZY (CLEAR) Urine Ketones 10 mg/dL (NEG) Urine Mucus FEW /lpf (OCC) Platelet Count 78 TH/MM3 (150-450) 57 TH/MM3 (150-450) 55 TH/MM3 (150-450) Random Glucose 65 MG/DL (74-106) 201 MG/DL (74-106) Chloride Level 109 MEQ/L (98-107) White Blood Count 3.1 TH/MM3 (4.0-11.0) 3.9 TH/MM3 (4.0-11.0) Neutrophils (%) (Auto) 82.6 % (16.0-70.0) Lymphocytes # (Auto) 0.5 TH/MM3 (1.0-4.8) Platelet Estimate LOW (NORMAL) Ovalocytes 1+ (NORMAL) Estimat Glomerular Filtration Rate 86 ML/MIN (>89) Red Blood Count 3.59 MIL/MM3 (4.00-5.30) Hemoglobin 11.2 GM/DL (11.6-15.3) Hematocrit 32.6 % (35.0-46.0) Imaging Last Impressions Abdomen/Pelvis CT 08/07/17 2251 Signed Impressions: Service Date/Time: Monday, August 07, 2017 23:07 - CONCLUSION: 1. Punctate nonobstructing right renal calculus. 2. Cirrhotic liver with portal hypertension. Serafin Chilel MD Thoracic Spine MRI 08/07/17 0000 Signed Impressions: Service Date/Time: Monday, August 07, 2017 23:26 - CONCLUSION: 1. Thoracic spinal cord is unremarkable. 2. Mild broad-based disc bulge T2-T3 without canal stenosis. Serafin Chilel MD Lumbar Spine MRI 08/07/17 0000 Signed Impressions: Service Date/Time: Monday, August 07, 2017 23:26 - CONCLUSION: 1. Left-sided protrusion L1-2 without canal stenosis. 2. Multilevel disc bulges including L2-3, L3-4 levels without canal stenosis. 3. Distal to L4-L5 in conjunction with hypertrophic facets cause mild canal stenosis. 4. Grade 1 spondylolisthesis L5 on S1. 5. Scattered facet arthropathy and neural femoral narrowing as described above. Serafin Chilel MD PE at Discharge GENERAL: This is a well-nourished, well-developed patient, in no apparent distress. SKIN: Warm and dry. HEENT: Normocephalic. Pupils equal round and reactive. Nose without bleeding. Airway patent. Dental caries. No noted erythema or edema or dental abscess on fractured tooth NECK: Trachea midline. CARDIOVASCULAR: Regular rate and rhythm without murmurs, gallops, or rubs. RESPIRATORY: Coarse breath sounds. Minimal wheeze. GASTROINTESTINAL: Abdomen soft, non-tender, nondistended. Bowel Sounds normoactive x4. MUSCULOSKELETAL: Extremities without clubbing, cyanosis, or edema. Bilateral foot drop. NEUROLOGICAL: Awake and alert. Oriented to time, place, person. No focal neuro deficit. Moves all extremities. Normal speech. Pt update on day of discharge Follow-up visit chronic back pain with remote history of L4-L5 and L5-S1 laminectomy with post laminectomy syndrome and bilateral foot drop, generalized weakness, epigastric pain. Patient seen and examined today laying in bed. Reports she had a rough night because she was needing help going to the bathroom and states there was a delay or that nobody helped her right away. Continues to complain of mild joint pain but states pain medication is helping her. Denies SOB/ dyspnea. Denies chest pain, palpitations, headaches, dizziness. Denies fevers, chills, n/v/d. Denies dysuria. Hospital Course 57-year-old female with past medical history significant for chronic back pain with a remote history of L4-L5 and L5-S1 laminectomy with postlaminectomy syndrome and bilateral foot drop who presents with multiple complaints including increased lumbar back pain, increased generalized weakness, nausea, vomiting and epigastric abdominal pain which have been getting worst in the previous weeks. Lumbar spine MRI showed left-sided protrusion L1-L2 without canal stenosis. Multilevel disc bulges including L2-L3, L3-L4 levels without canal stenosis. Distal to L5 and L5 in conjunction with hypertrophic facets cause mild canal stenosis. Grade 1 spondylolithiasis L5 on S1. Scattered facet arthropathy and neuroforaminal narrowing as described above. Patient was seen by neurosurgery recommended conservative therapy of pain medication and physical therapy. Patient was also complaining of abdominal pain. She has GERD , chronic hepatitis C with cirrhosis. Gastroenterology has been consulted. Recommend to check stool for C. difficile for diarrhea. Place on empiric Flagyl 253 times a day for 7 days followed by probiotics. She is also on Bentyl every 6 hours as needed. Recommend to continue PPI. Continue her rifaximin and Creon. On exam today she has no abdominal pain or diarrhea reported. She will follow-up with party coordinator Dr. Black's office as an outpatient. Patient has complained of maxillary pain secondary to dental abscess states that she needs to take antibiotic for it according to her dentist but she was not able to because she went to the hospital. On exam fracture to does not look infected. No edema, erythema. No abscess is noted. Magic mouthwash for now. Follow-up with dentist in an outpatient. Initially when patient came in had COPD possibly mild exacerbation. She was given duo nebs, Symbicort, Singulair and albuterol as needed. She will continue this medication as an outpatient. She was on room air. Continue to encourage to quit smoking. She has 22 years smoking history. Patient has met maximal benefits of hospitalization. Clinically stable for discharge. Pt Condition on Discharge: Stable Discharge Disposition: Disch w/ Home Health Serv Discharge Time: > 30 minutes Discharge Instructions DIET: Follow Instructions for: Heart Healthy Diet Activities you can perform: Regular-No Restrictions Follow up Referrals: Dental - 1 Week Gastroenterology - 1 Week with Jeff Alvarado MD PCP Follow-up - 2-3 Days New Medications: Hydrocodone/Acetaminophen (Hydrocodone-Acetamin 5-325 mg) 5 Mg-325 Mg Tablet 1 TAB PO Q6HR PRN for Pain, #12 TAB Gihdljcq-Hawvjroodaegsjm-Psrwaraod Liq (Magic Mouthwash Adult Liq) 120 Ml Susp 10 ML SWISH-SWAL QID for Oral Pain for 7 Days, #100 ML Continued Medications: Acetaminophen (Tylenol) 325 Mg Tab 650 MG PO Q6H PRN for MILD PAIN/FEVER, TAB 0 Refills Albuterol 18 GM Inh (Ventolin Hfa 18 GM Inh) 90 Mcg/Act Aer 2 PUFF INH Q4-6H PRN for SHORTNESS OF BREATH, #1 INHALER 0 Refills Budesonide-Formoterol Inh (Symbicort Inh) 160-4.5 Mcg/Act Aero 1 PUFF INH Q12HR, #1 INHALER 0 Refills Cetirizine HCl (Zyrtec) 10 Mg Tablet 10 MG PO DAILY Ibuprofen (Ibuprofen) 200 Mg Cap 600 MG PO Q8HR PRN for MILD PAIN/FEVER, CAP 0 Refills Montelukast (Singulair) 10 Mg Tab 10 MG PO DAILY for Allergies, #30 TAB 0 Refills Omeprazole (Omeprazole) 40 Mg Cap 40 MG PO DAILY, #30 CAP 0 Refills Ondansetron Odt (Zofran Odt) 4 Mg Tab 4 MG SL Q6HR PRN for Nausea/Vomiting, #30 TAB 0 Refills Pancrelipase (Creon) 6,000-19,000-30,000 Units Cap 1 CAP PO TIDPC for Digestive Aid, #90 CAP 0 Refills Propranolol (Propranolol) 20 Mg Tab 20 MG PO DAILY, #60 TAB 0 Refills Rifaximin (Xifaxan) 550 Mg Tab 550 MG PO DAILY for Hepatic encephalopathy, #60 TAB 0 Refills Sucralfate (Sucralfate) 1 Gram Tab 1 GM PO TID for Duodenal ulcer, #90 TAB 0 Refills on empty stomach Tamsulosin (Flomax) 0.4 Mg Cap 0.4 MG PO HS for Manage Prostate Problems, #10 CAP 0 Refills Jason Lr [facility] Aug 10, 2017 13:35
[2017-08-10] MEDS ORDERED: METR250 PO (13:36)
== END 2017-08-10 15:19 | disposition home or self-care (01) ==
LOC: NEPC 22:33 → NEDA 08-08 04:01 → NEPFCDU 08-08 10:53
PROVIDERS: ADMIT Hospitalist; ATTEND Hospitalist
DX: R53.1 Weakness (principal); M54.16 Radiculopathy, lumbar region; B18.2 Chronic viral hepatitis C; K74.60 Unspecified cirrhosis of liver; K21.9 Gastro-esophageal reflux disease without esophagitis; E87.0 Hyperosmolality and hypernatremia; E86.0 Dehydration; E87.6 Hypokalemia; J44.1 Chronic obstructive pulmonary disease with (acute) exacerbation; I11.0 Hypertensive heart disease with heart failure; I50.9 Heart failure, unspecified; K90.9 Intestinal malabsorption, unspecified; R19.7 Diarrhea, unspecified; M21.372 Foot drop, left foot; M21.371 Foot drop, right foot; N20.0 Calculus of kidney; Z79.899 Other long term (current) drug therapy; I49.3 Ventricular premature depolarization; R32 Unspecified urinary incontinence; R68.83 Chills (without fever); F41.9 Anxiety disorder, unspecified; M51.16 Intervertebral disc disorders with radiculopathy, lumbar region; E05.00 Thyrotoxicosis with diffuse goiter without thyrotoxic crisis or storm; M43.17 Spondylolisthesis, lumbosacral region; D69.59 Other secondary thrombocytopenia; E03.9 Hypothyroidism, unspecified; F17.210 Nicotine dependence, cigarettes, uncomplicated; G62.9 Polyneuropathy, unspecified; K02.9 Dental caries, unspecified; K04.7 Periapical abscess without sinus; K12.1 Other forms of stomatitis; K58.9 Irritable bowel syndrome, unspecified; K76.6 Portal hypertension; K86.1 Other chronic pancreatitis; M48.061 Spinal stenosis, lumbar region without neurogenic claudication; Z86.73 Personal history of transient ischemic attack (TIA), and cerebral infarction without residual deficits
CPT/HCPCS: 72146; 72148; 74176; 80048; 80053; 81001; 83605; 83690; 85025; 85027; 93005; 94640; 94664; 96374; 96375; 96376; 97110; 97116; 97162; 99285; G0378; G8987; G8988; J2270; J2920; J7512

== ENCOUNTER 2017-08-17 15:58 | Emergency (ER) | payer MEDICARE, MEDICAID ==
[~2017-08-17 15:58] MED LIST changes: +HYDR-3516 PO; +MAGICADU2 SWISH-SWAL; +METR250 PO
[2017-08-17 16:08] VITALS: BP 137/77; PULSE 79; RESP 16; TEMP 98.6; O2SAT 97
== END 2017-08-17 18:14 | disposition left against medical advice (07) ==
LOC: NED 15:58
DX: R19.7 Diarrhea, unspecified (principal)
CPT/HCPCS: 99281